=== PATIENT | female | born 1945 | race Caucasian/White ===

== ENCOUNTER → 2017-08-13 | Outpatient (CLI) | payer MEDICARE ==
--- NOTE | 2017-08-13 16:50 | RADIOLOGY REPORT (SQ) ---
EXAM DESCRIPTION: CT CHEST WITHOUT COMPLETED DATE/TIME: 08/13/2017 12:55 pm REASON FOR STUDY: R91.1 SOLITARY PULMONARY NODULE R91.1 SOLITARY PULMONARY NODULE COMPARISON: CT chest 02/15/2014, 06/10/2014, 11/28/2015, 04/19/2016 PET-CT 02/27/2014 TECHNIQUE: CT scan performed of the chest without intravenous contrast. Images reviewed with lung, soft tissue and bone windows. Reconstructed coronal and sagittal MPR images reviewed. All images st ored on PACS. All CT scanners at this facility use dose modulation, iterative reconstruction, and/or weight based d osing when appropriate to reduce radiation dose to as low as reasonably achievable (ALARA). [facility]: Dose Right [facility]: CareDose [facility]: Dose Right [facility]: Teradose 4D [facility]: [email or web address] RADIATION DOSE: CT Rad equipment meets quality standard of care and radiation dose reduction techniq ues were employed. CTDIvol: 12.7 mGy. DLP: 521 mGy-cm. mGy. LIMITATIONS: No technical limitations. FINDINGS: LUNGS AND PLEURA: End-stage appearance of obstructive lung disease with diffuse hyperinfla tion and hyperlucency. The 3 to 4 mm nodule in the posterior left upper lobe seen on 04/19/2016 CT chest no longer identified . No worrisome pulmonary nodules. No pleural effusion. No pneumothorax. No focal infiltrates. HILAR AND MEDIASTINAL STRUCTURES: No identified masses or abnormal nodes. No obvious aneurysm. HEART AND VASCULAR STRUCTURES: No aneurysm. No pericardial effusion. UPPER ABDOMEN: No significant findings. Limited exam. THYROID AND OTHER SOFT TISSUES: No masses. No adenopathy. BONES: No significant finding. HARDWARE: None in the chest. OTHER: No other significant findings. IMPRESSION: OBSTRUCTIVE LUNG DISEASE NO WORRISOME PULMONARY NODULES TECHNICAL DOCUMENTATION: JOB ID: [id number] Quality ID # [id number]: Final reports with documentation of one or more dose reduction techniques (e.g., Au tomated exposure control, adjustment of the mA and/or kV according to patient size, use of iterative reconstruction technique) 2010 [employer]- All Rights Reserved Reading location - IP/workstation name: [email or web address]
== END ==
LOC: RAD 13:33
PROVIDERS: ATTEND Internal Medicine Critical Care Medicine
DX: J44.9 Chronic obstructive pulmonary disease, unspecified (principal); J45.40 Moderate persistent asthma, uncomplicated; F41.9 Anxiety disorder, unspecified; R09.02 Hypoxemia; F17.200 Nicotine dependence, unspecified, uncomplicated; R91.1 Solitary pulmonary nodule; R06.00 Dyspnea, unspecified; Z80.1 Family history of malignant neoplasm of trachea, bronchus and lung
CPT/HCPCS: 71250

== ENCOUNTER 2018-02-12 04:34 | Inpatient (IN) | payer MEDICARE ==
[2018-02-12 06:01] LABS: ABSOLUTE BASOPHILS # (AUTO) 0.1 10^3/uL (0.0-0.2); ABSOLUTE EOSINOPHILS # (AUTO) 0.3 10^3/uL (0.0-0.6); ABSOLUTE LYMPHOCYTES (AUTO) 2.3 10^3/uL (0.5-4.7); ABSOLUTE MONOCYTES (AUTO) 0.8 10^3/uL (0.1-1.4); ABSOLUTE NEUT (AUTO) 6.8 10^3/uL (1.7-8.2); BASOPHILS % (AUTO) 0.7 % (0-2); EOSINOPHILS % (AUTO) 2.9 % (0-6); HEMATOCRIT 36.5 % (36.0-47.0); HEMOGLOBIN 12.2 g/dL (12.0-15.5); LYMPHOCYTES % (AUTO) 22.6 % (13-45); MEAN CORPUSCULAR HEMOGLOBIN 31.2 pg (27.0-33.4); MEAN CORPUSCULAR HGB CONC 33.3 g/dL (32.0-36.0); MEAN CORPUSCULAR VOLUME 94 fl (80-97); MONOCYTES % (AUTO) 7.8 % (3-13); PLATELET COUNT 374 10^3/uL (150-450); RED CELL DISTRIBUTION WIDTH 15.4 % (11.5-14.0); TOTAL CELLS COUNTED % (AUTO) 100 %; WHITE BLOOD COUNT 10.2 10^3/uL (4.0-10.5)
[2018-02-12 06:03] LABS: INTERNATIONAL RATION (INR) 0.93; PROTHROMBIN TIME 12.9 SEC (11.4-15.4)
[2018-02-12 06:12] LABS: ALANINE AMINOTRANSFERASE 16 U/L (9-52); ALBUMIN 3.9 g/dL (3.5-5.0); ALKALINE PHOSPHATASE 62 U/L (38-126); ANION GAP 15 (5-19); ASPARTATE AMINO TRANSFERASE 20 U/L (14-36); BILIRUBIN,DIRECT 0.4 mg/dL (0.0-0.4); BILIRUBIN,TOTAL 0.4 mg/dL (0.2-1.3); BLOOD UREA NITROGEN 15 mg/dL (7-20); CALCIUM 9.1 mg/dL (8.4-10.2); CARBON DIOXIDE 32 mmol/L (22-30); CHLORIDE 96 mmol/L (98-107); GLUCOSE 130 mg/dL (75-110); POTASSIUM 4.2 mmol/L (3.6-5.0); SODIUM 143.2 mmol/L (137-145); TOTAL PROTEIN 7.8 g/dL (6.3-8.2)
--- NOTE | 2018-02-12 06:23 | RADIOLOGY REPORT (SQ) ---
PROCEDURE: XR CHEST 1 VIEW HISTORY: weakness COMPARISON: 03/16/2015 TECHNIQUE: Single projection of the chest was done. The study was done on 02/12/2018 at 6:09 AM, local time FINDINGS: There are underlying changes of COPD. There is presence of a small ill-defined opacity in the right lower lung zone which may be due to infectious or neoplastic etiology and can be further assessed with a dedicated CT of the chest . There are no pneumothoraces or pleural effusions. The pulmonary vascularity is normal. The cardiomediastinal silhouette is unremarkable for patient's age and sex. IMPRESSION: There are underlying changes of COPD. There is presence of a small ill-defined opacity in the right lower lung zone which may be due to infectious or neoplastic etiology and can be further assessed with a dedicated CT of the chest .
[2018-02-12 06:34] LABS: APPEARANCE,URINE TURBID; BILIRUBIN,URINE NEGATIVE (NEGATIVE); GLUCOSE, URINE NEGATIVE (NEGATIVE); KETONES,URINE TRACE mg/dL (NEGATIVE); LEUKOCYTE ESTERASE,URINE SMALL (NEGATIVE); NITRITE,URINE NEGATIVE (NEGATIVE); PROTEIN,URINE 100 mg/dL (NEGATIVE); URINE SPECIFIC GRAVITY 1.024; UROBILINOGEN,URINE NEGATIVE mg/dL (<2.0)
--- NOTE | 2018-02-12 06:41 | ER Document Report ---
ED General - General Chief Complaint: General Weakness Stated Complaint: TREMORS/WEAKNESS Time Seen by Provider: 02/12/18 06:41 TRAVEL OUTSIDE OF THE [place] IN LAST 30 DAYS: No - HPI Patient complains to provider of: Generalized weakness, SOB Notes: Ill-appearing female presents with increasing weakness and fatigue for 1 month. Patient suffers from COPD continues to smoke cigarettes. Patient has had increasing work of breathing shortness of breath and sputum production generalized malaise. Patient denies fever chills nausea vomiting dysuria or diarrhea. Patient states she is unable to ambulate now due to process profound weakness. Has has increasing oxygen demand Patient now requiring 3 L nasal cannula to maintain oxygen saturations patient normally uses 2 L. - Related Data Allergies/Adverse Reactions: Sulfa (Sulfonamide Antibiotics) Allergy (Severe, Verified 03/16/15 18:56) unsure amoxicillin Allergy (Verified 02/12/18 07:20) codeine [Codeine] Allergy (Verified 03/16/15 18:56) Past Medical History - Social History Smoking Status: Current Some Day Smoker Chew tobacco use (# tins/day): No Frequency of alcohol use: None Drug Abuse: None Family History: Reviewed & Not Pertinent Patient has suicidal ideation: No Patient has homicidal ideation: No - Past Medical History Cardiac Medical History: Denies: Hx Coronary Artery Disease, Hx Heart Attack, Hx Hypertension Pulmonary Medical History: Reports: Hx Asthma, Hx COPD Denies: Hx Bronchitis, Hx Pneumonia, Hx Tuberculosis Neurological Medical History: Denies: Hx Cerebrovascular Accident, Hx Seizures Renal/ Medical History: Denies: Hx Peritoneal Dialysis Musculoskeletal Medical History: Denies Hx Arthritis Past Surgical History: Reports: Hx Hysterectomy. Denies: Hx Pacemaker - Immunizations Hx Diphtheria, Pertussis, Tetanus Vaccination: No Review of Systems - Review of Systems Notes: REVIEW OF SYSTEMS: CONSTITUTIONAL: -fevers, -chills EENT: -eye pain, -difficulty swallowing, -nasal congestion CARDIOVASCULAR: -chest pain, -syncope. RESPIRATORY: -cough, +SOB GASTROINTESTINAL: -abdominal pain, -nausea, -vomiting, -diarrhea GENITOURINARY: -dysuria, -hematuria MUSCULOSKELETAL: -back pain, -neck pain SKIN: -rash or skin lesions. HEMATOLOGIC: -easy bruising or bleeding. LYMPHATIC: -swollen, enlarged glands. NEUROLOGICAL: -altered mental status or loss of consciousness, -headache, - neurologic symptoms PSYCHIATRIC: -anxiety, -depression. ALL OTHER SYSTEMS REVIEWED AND NEGATIVE. Physical Exam - Vital signs Vitals: Temp Pulse Resp BP Pulse Ox 97.5 F 95 20 130/51 H 100 02/12/18 04:45 02/12/18 04:45 02/12/18 04:45 02/12/18 04:45 02/12/18 04:45 - Notes Notes: PHYSICAL EXAMINATION: GENERAL: ill appearing female, cachectic. HEAD: Atraumatic, normocephalic. EYES: Pupils equal round and reactive to light, extraocular movements intact, sclera anicteric, conjunctiva are normal. ENT: nares patent, oropharynx clear without exudates. Moist mucous membranes. NECK: Normal range of motion, supple without lymphadenopathy LUNGS: Respiratory distress, biphasic wheezing, rhonchi HEART: Tachycardia, no murmurs or gallops ABDOMEN: Soft, nontender, normoactive bowel sounds. No guarding, no rebound. No masses appreciated. EXTREMITIES: Normal range of motion, no pitting or edema. No cyanosis. NEUROLOGICAL: Cranial nerves grossly intact. Normal speech, normal gait. Normal sensory and motor exams. PSYCH: Normal mood, normal affect. SKIN: Warm, Dry, normal turgor, no rashes or lesions noted. Course - Re-evaluation Re-evalutation: 02/12/18 07:56 Critically ill-appearing female presents with new oxygen demand, respiratory distress, dysuria. Patient found to have infiltrate on her chest x-ray, no leukocytosis. Patient given multiple breathing treatments respiratory status mildly improved with steroids. Patient requiring dual antibiotic therapy for pneumonia and possible urinary tract sources. Urine cultures pending at this time blood cultures pending at this time. Patient given adequate fluid resuscitation in the emergency department. Will be admitted to the hospital for close monitoring of her sepsis. - Vital Signs Vital signs: Temp Pulse Resp BP Pulse Ox 97.5 F 95 24 H 150/82 H 100 02/12/18 04:45 02/12/18 04:45 02/12/18 06:01 02/12/18 06:01 02/12/18 06:01 - Laboratory Result Diagrams: 02/12/18 04:00 02/12/18 04:00 Laboratory results interpreted by me: 02/12/18 02/12/18 02/12/18 04:00 04:00 05:55 RDW 15.4 H Chloride 96 L Carbon Dioxide 32 H Glucose 130 H Urine Protein 100 H Urine Ketones TRACE H Urine Blood SMALL H Ur Leukocyte Esterase SMALL H Urine Ascorbic Acid 20 H - EKG Interpretation by Me Additional EKG results interpreted by me: 02/12/18 06:48 Sinus tachycardia, no ST elevations or depressions no pathologic T-wave inversions. 02/12/18 06:48 Critical Care Note - Critical Care Note Total time excluding time spent on procedures (mins): 38 Discharge - Discharge Clinical Impression: COPD exacerbation Acute and chronic respiratory failure Qualifiers: Respiratory failure complication: hypoxia and hypercapnia Qualified Code(s): J96.21 - Acute and chronic respiratory failure with hypoxia; J96.22 - Acute and chronic respiratory failure with hypercapnia; J96.22 - Acute and chronic respiratory failure with hypercapnia; J96.22 - Acute and chronic respiratory failure with hypercapnia UTI (urinary tract infection) Qualifiers: Urinary tract infection type: acute cystitis Hematuria presence: without hematuria Qualified Code(s): N30.00 - Acute cystitis without hematuria Condition: Stable Disposition: ADMITTED INPATIENT Admitting Provider: Hospitalist - Dr. Claire Unit Admitted: Medical Floor Referrals: ASHLEY GONZALEZ MD [Primary Care Provider] - Follow up as needed
[2018-02-12] MEDS ORDERED: IPRATROPIUM/ALBUTEROL 0.5-2.5 MG/3 ML AMPUL NEB ONE ×3 (06:43)
[2018-02-12] MEDS ORDERED: NORMAL SALINE 1000 ML 1,000 ML IV ONE (06:44)
[2018-02-12] MEDS ORDERED: METHYLPREDNISOLONE INJ 125 MG/2 ML SDV IV ONE (06:44)
[2018-02-12 06:45] LABS: COLOR,URINE GREEN
[2018-02-12] MEDS ORDERED: AZITHROMYCIN INJ 500 MG VIAL IV ONE (06:45)
[2018-02-12] MEDS ORDERED: CEFTRIAXONE 1 GM/D5W RTU 1 GM/50 ML RTUPB IV ONE (07:00)
--- NOTE | 2018-02-12 07:56 | EKG REPORT ---
SEVERITY:- ABNORMAL ECG - SINUS RHYTHM VENTRICULAR PREMATURE COMPLEXES NONSPECIFIC INTRAVENTRICULAR CONDUCTION DELAY : Confirmed by: Hunter Kong MD 12-Feb-2018 07:56:13
[2018-02-12] MEDS ORDERED: LORAZEPAM INJ 2 MG/1 ML VIAL IV ONE (07:58)
[2018-02-12] MEDS ORDERED: ALBUTEROL SULFATE 0.083% NEB 2.5 MG/3 ML AMPUL NEB PRN (08:09)
[2018-02-12] MEDS ORDERED: CEFTRIAXONE INJ 1000 MG VIAL ONE (08:34)
[2018-02-12] MEDS ORDERED: IPRATROPIUM/ALBUTEROL 0.5-2.5 MG/3 ML AMPUL NEB SCH (10:00)
[2018-02-12] MEDS: IPRATROPIUM/ALBUTEROL 0.5-2.5 MG/3 ML AMPUL NEB SCH ×3 (11:42→19:50)
[2018-02-12] MEDS: ENOXAPARIN SODIUM INJ 40 MG/0.4 ML DISP.SYRIN SUBCUT SCH (12:03)
[2018-02-12 12:28] LABS: ARTERIAL BLOOD BASE EXCESS 3.3 mmol/L; ARTERIAL BLOOD FIO2 4L; ARTERIAL BLOOD H2CO3 2.18 mmol/L (1.05-1.35); ARTERIAL BLOOD HCO3 32.1 mmol/L (20-24); ARTERIAL BLOOD O2 SATURATION 93.5 % (94-98); ARTERIAL BLOOD PH 7.26 (7.35-7.45); ARTERIAL BLOOD PO2 79.1 mmHg (80-100); ARTERIAL BLOOD TOTAL CO2 34.3 mmol/L (21-25)
[2018-02-12 12:29] LABS: ARTERIAL BLOOD PCO2 72.4 mmHg (35-45)
[2018-02-12] MEDS ORDERED: ALBUTEROL SULFATE HFA (90 MCG/PUFF) 8 GM MDI (1 MDI/ER DISP) IH SCH (12:45)
[2018-02-12] MEDS ORDERED: (PENDING PHARMACY ID) (Tiotropium Bromide [Spiriva Respimat] 2 PUFF) IH SCH ×2 (12:45→13:15)
--- NOTE | 2018-02-12 12:51 | PDOC H&P ---
History of Present Illness Admission Date/PCP: 02/12/18 08:29 ASHLEY GONZALEZ MD Patient complains of: Weakness, shortness of breath History of Present Illness: SOM MCALLISTER is a 72 year old female who has history of chronic respiratory failure on home oxygen 24 hours a day. She has severe COPD. Patient apparently has been complaining of generalized weakness and swollen feet for about 3 month along with his cough and shortness of breath. She actually fell asleep one time and had her nose on the table and has significant erythema and large scab on her nasal bridge. She is severely short of breath and does not seem to finish a complete sentence during my evaluation. She is very poor historian as well as her who was present during the examination. Past Medical History Cardiac Medical History: Denies: Coronary Artery Disease, Myocardial Infarction, Hypertension Pulmonary Medical History: Reports: Asthma, Chronic Obstructive Pulmonary Disease (COPD) Denies: Bronchitis, Pneumonia, Tuberculosis Neurological Medical History: Denies: Seizures Musculoskeltal Medical History: Denies: Arthritis Hematology: Denies: Anemia Past Surgical History Past Surgical History: Reports: Hysterectomy Denies: Pacemaker Social History Smoking Status: Current Some Day Smoker Hx Recreational Drug Use: No Hx Prescription Drug Abuse: No Family History Family History: Reviewed & Not Pertinent Parental Family History Reviewed: Yes Children Family History Reviewed: Yes Sibling(s) Family History Reviewed.: Yes Medication/Allergy Home Medications: Albuterol Sulfate [Ventolin HFA MDI 18 GM] 2 puff IH Q4H 02/12/18 Alprazolam [Xanax 0.5 mg Tablet] 0.5 mg PO TID 02/12/18 Aspirin [Aspirin 81 mg Chewable Tablet] 81 mg PO DAILY 02/12/18 Atorvastatin Calcium [Lipitor 40 mg Tablet] 40 mg PO QHS 02/12/18 Famotidine [Pepcid 20 mg Tablet] 20 mg PO BID 02/12/18 Fluticasone/Salmeterol [Advair 500-50 Diskus 28 Dose] 1 inh IH Q12H 02/12/18 Metoprolol Tartrate [Lopressor 25 mg Tablet] 25 mg PO Q12 02/12/18 Tiotropium [place] [Spiriva Respimat] 2 puff IH DAILY 02/12/18 Allergies/Adverse Reactions: Sulfa (Sulfonamide Antibiotics) Allergy (Severe, Verified 03/16/15 18:56) unsure amoxicillin Allergy (Verified 02/12/18 07:20) codeine [Codeine] Allergy (Verified 03/16/15 18:56) Physical Exam Vital Signs: Temp Pulse Resp BP Pulse Ox 97.4 F 113 H 28 H 161/86 H 95 02/12/18 11:05 02/12/18 11:42 02/12/18 11:42 02/12/18 11:05 02/12/18 11:05 Intake & Output 02/11/18 02/12/18 02/13/18 06:59 06:59 06:59 Intake Total 1050 Balance 1050 Weight 133 lb 2.547 oz General appearance: PRESENT: severe distress, thin Head exam: PRESENT: normocephalic, other - Injury to her nasal bridge was scabbed Eye exam: PRESENT: conjunctiva pink, EOMI, PERRLA. ABSENT: scleral icterus Ear exam: PRESENT: normal external ear exam Mouth exam: PRESENT: moist, tongue midline Neck exam: ABSENT: carotid bruit, JVD, lymphadenopathy, thyromegaly Respiratory exam: PRESENT: clear to auscultation tete. ABSENT: rales, rhonchi, wheezes Cardiovascular exam: PRESENT: RRR. ABSENT: diastolic murmur, rubs, systolic murmur Pulses: PRESENT: normal dorsalis pedis pul Vascular exam: PRESENT: normal capillary refill GI/Abdominal exam: PRESENT: normal bowel sounds, soft. ABSENT: distended, guarding, mass, organolmegaly, rebound, tenderness Rectal exam: PRESENT: deferred Extremities exam: PRESENT: full ROM. ABSENT: calf tenderness, clubbing, pedal edema Neurological exam: PRESENT: alert, awake, oriented to person, oriented to place , oriented to time, oriented to situation, CN II-XII grossly intact. ABSENT: motor sensory deficit Psychiatric exam: PRESENT: appropriate affect, normal mood. ABSENT: homicidal ideation, suicidal ideation Skin exam: PRESENT: erythema Results Laboratory Results: 02/12/18 11:15 Carbonic Acid 2.18 H HCO3/H2CO3 Ratio 14:1 ABG pH 7.26 L ABG pCO2 72.4 H* ABG pO2 79.1 L ABG HCO3 32.1 H ABG O2 Saturation 93.5 L ABG Base Excess 3.3 FiO2 4L Impressions: Chest X-Ray 02/12/18 05:36 IMPRESSION: There are underlying changes of COPD. There is presence of a small ill-defined opacity in the right lower lung zone which may be due to infectious or neoplastic etiology and can be further assessed with a dedicated CT of the chest . Assessment & Plan - Diagnosis (1) Lower extremity cellulitis Is this a current diagnosis for this admission?: Yes Plan: We will start IV ceftriaxone. monitor blood culture (2) Acute and chronic respiratory failure Qualifiers: Respiratory failure complication: hypoxia and hypercapnia Qualified Code(s) : J96.21 - Acute and chronic respiratory failure with hypoxia; J96.22 - Acute and chronic respiratory failure with hypercapnia; J96.22 - Acute and chronic respiratory failure with hypercapnia; J96.22 - Acute and chronic respiratory failure with hypercapnia Is this a current diagnosis for this admission?: Yes Plan: PCO2 is 72. Patient will need BiPAP. Continue oxygen as needed. Repeat ABG later today. (3) COPD exacerbation Is this a current diagnosis for this admission?: Yes Plan: Start prednisone 40 mg daily. DuoNeb every 4 hours scheduled. Albuterol every 2 hours as needed. Supportive care with BiPAP and oxygen as needed. (4) UTI (urinary tract infection) Qualifiers: Urinary tract infection type: acute cystitis Hematuria presence: without hematuria Qualified Code(s): N30.00 - Acute cystitis without hematuria Is this a current diagnosis for this admission?: Yes Plan: She will be on ceftriaxone. Follow urine culture. (5) Esophageal stenosis Is this a current diagnosis for this admission?: No Plan: She says she gets "stretching surgery" every now and then. She denied dysphagia. (6) Generalized anxiety disorder Is this a current diagnosis for this admission?: Yes Plan: Continue Xanax as needed (7) Lesion of right lung Is this a current diagnosis for this admission?: Yes Plan: Check CT of the chest. She will be on azithromycin and ceftriaxone. (8) Generalized weakness Is this a current diagnosis for this admission?: Yes Plan: Consult physical therapy - Inpatient Certification I certify that my determination is in accordance with my understanding of Medicare's requirements for reasonable and necessary INPATIENT services [42 CFR 412.3e].: Yes
[2018-02-12] MEDS: ASPIRIN 81 MG TABLET, CHEWABLE PO SCH (13:16)
[2018-02-12] MEDS: METOPROLOL TARTRATE 25 MG TABLET PO SCH ×2 (13:16→21:25)
[2018-02-12] MEDS: FAMOTIDINE 20 MG TABLET PO SCH ×2 (13:16→18:21)
[2018-02-12] MEDS: ALPRAZOLAM 0.5 MG TABLET PO SCH ×2 (13:16→21:25)
[2018-02-12] MEDS ORDERED: ALPRAZOLAM 0.5 MG TABLET PO SCH ×2 (14:00)
[2018-02-12] MEDS ORDERED: PREDNISONE 20 MG TABLET PO ONE (14:00)
[2018-02-12 15:02] LABS: ARTERIAL BLOOD BASE EXCESS 3.6 mmol/L; ARTERIAL BLOOD H2CO3 2.22 mmol/L (1.05-1.35); ARTERIAL BLOOD HCO3 32.4 mmol/L (20-24); ARTERIAL BLOOD O2 SATURATION 95.8 % (94-98); ARTERIAL BLOOD PH 7.26 (7.35-7.45); ARTERIAL BLOOD PO2 93.7 mmHg (80-100); ARTERIAL BLOOD TOTAL CO2 34.7 mmol/L (21-25)
[2018-02-12 15:05] LABS: ARTERIAL BLOOD FIO2 35%
[2018-02-12 15:06] LABS: ARTERIAL BLOOD PCO2 73.9 mmHg (35-45)
[2018-02-12] MEDS: ALBUTEROL SULFATE HFA (90 MCG/PUFF) 200 PUFF/8.5 GM MDI IH SCH ×3 (16:00→21:24)
[2018-02-12] MEDS: TIOTROPIUM BROMIDE DPI 5 CAP/KIT (18 MCG/CAP) IH SCH (16:01)
[2018-02-12] MEDS: FLUTICASONE/SALMETEROL DISKUS 500-50 MCG/DOSE IH SCH (18:23)
--- NOTE | 2018-02-12 18:36 | RADIOLOGY REPORT (SQ) ---
EXAM DESCRIPTION: CTA CHEST COMPLETED DATE/TIME: 02/12/2018 6:04 pm REASON FOR STUDY: resp failure COMPARISON: 08/13/2017 TECHNIQUE: CT scan of the chest performed using helical scanning technique with dynamic intravenous contrast injection. Images reviewed with lung, soft tissue and bone windows. Reconstructed coronal and sagittal MPR images reviewed. Additional 3 dimensional post-processing performed to develop Maximal Intensity Projection images (NM P). All images stored on PACS. All CT scanners at this facility use dose modulation, iterative reconstruction, and/or weight based d osing when appropriate to reduce radiation dose to as low as reasonably achievable (ALARA). [facility]: Dose Right [facility]: CareDose [facility]: Dose Right [facility]: Teradose 4D [facility]: [employer] CONTRAST TYPE AND DOSE: contrast/concentration: Isovue 350.00 mg/ml; Total Contrast Delivered: 70.0 ml; Total Saline Delivered: 70.0 ml Contrast bolus adequate for pulmonary arteries and aorta. RENAL FUNCTION: BUN 15 creatinine 0.5 RADIATION DOSE: CT Rad equipment meets quality standard of care and radiation dose reduction techniq ues were employed. CTDIvol: 13.2 - 15.0 mGy. DLP: 641 mGy-cm. . LIMITATIONS: None. FINDINGS: LUNGS AND PLEURA: Extensive centrilobular emphysematous changes. No masses. No acute inf iltrates. No pleural effusion. AORTA AND GREAT VESSELS: No aneurysm. No dissection. HEART: No pericardial effusion. No significant coronary artery calcifications. PULMONARY ARTERIES: No emboli visualized in the main pulmonary arteries or the segmental branches. HILAR AND MEDIASTINAL STRUCTURES: No identified masses or abnormal nodes. HARDWARE: None in the chest. UPPER ABDOMEN: Cholelithiasis with a large gallstone. THYROID AND OTHER SOFT TISSUES: No masses. No adenopathy. BONES: No acute or significant finding. 3D MIPS: Confirm above findings. OTHER: No other significant finding. IMPRESSION: 1. There is no evidence of pulmonary emboli. 2. Extensive pulmonary emphysema. 3. Cholelithiasis. COMMENT: Quality ID # [id number]: Final reports with documentation of one or more dose reduction techniques (e.g., Automated exposure control, adjustment of the mA and/or kV according to patient size, use of iterative reconstruction technique) TECHNICAL DOCUMENTATION: JOB ID: [id number]- All Rights Reserved Reading location - IP/workstation name: [email or web address]
[2018-02-12 19:17] LABS: ARTERIAL BLOOD BASE EXCESS 4.6 mmol/L; ARTERIAL BLOOD H2CO3 1.72 mmol/L (1.05-1.35); ARTERIAL BLOOD HCO3 31.4 mmol/L (20-24); ARTERIAL BLOOD O2 SATURATION 94.8 % (94-98); ARTERIAL BLOOD PCO2 57.3 mmHg (35-45); ARTERIAL BLOOD PH 7.36 (7.35-7.45); ARTERIAL BLOOD PO2 78.2 mmHg (80-100); ARTERIAL BLOOD TOTAL CO2 33.1 mmol/L (21-25)
[2018-02-12 19:18] LABS: ARTERIAL BLOOD FIO2 30%
[2018-02-12] MEDS: METHYLPREDNISOLONE INJ 125 MG/2 ML SDV IV SCH (21:25)
[2018-02-12] MEDS: FAMOTIDINE INJ/PF 20 MG/2 ML SDV IV SCH (21:25)
[2018-02-12] MEDS: ATORVASTATIN CALCIUM 40 MG TABLET PO SCH (21:25)
[2018-02-13] MEDS: IPRATROPIUM/ALBUTEROL 0.5-2.5 MG/3 ML AMPUL NEB SCH ×6 (00:01→19:49)
[2018-02-13 05:28] LABS: HEMATOCRIT 33.7 % (36.0-47.0); HEMOGLOBIN 11.2 g/dL (12.0-15.5); MEAN CORPUSCULAR HGB CONC 33.3 g/dL (32.0-36.0); MEAN CORPUSCULAR VOLUME 93 fl (80-97); PLATELET COUNT 259 10^3/uL (150-450); RED BLOOD COUNT 3.62 10^6/uL (3.72-5.28); RED CELL DISTRIBUTION WIDTH 15.5 % (11.5-14.0); WHITE BLOOD COUNT 5.9 10^3/uL (4.0-10.5)
[2018-02-13 05:58] LABS: ANION GAP 13 (5-19); BLOOD UREA NITROGEN 14 mg/dL (7-20); CALCIUM 9.2 mg/dL (8.4-10.2); CARBON DIOXIDE 29 mmol/L (22-30); CHLORIDE 100 mmol/L (98-107); GLUCOSE 157 mg/dL (75-110); POTASSIUM 4.5 mmol/L (3.6-5.0); SODIUM 141.8 mmol/L (137-145)
[2018-02-13] MEDS: METHYLPREDNISOLONE INJ 125 MG/2 ML SDV IV SCH ×3 (06:45→21:10)
[2018-02-13] MEDS: ALPRAZOLAM 0.5 MG TABLET PO SCH ×3 (06:45→21:10)
[2018-02-13] MEDS: ALBUTEROL SULFATE HFA (90 MCG/PUFF) 200 PUFF/8.5 GM MDI IH SCH ×6 (06:45→21:13)
[2018-02-13] MEDS: FLUTICASONE/SALMETEROL DISKUS 500-50 MCG/DOSE IH SCH ×2 (06:46→17:26)
[2018-02-13] MEDS: METOPROLOL TARTRATE 25 MG TABLET PO SCH ×2 (09:12→21:08)
[2018-02-13] MEDS: AZITHROMYCIN 250 MG TABLET PO SCH (09:13)
[2018-02-13] MEDS: ASPIRIN 81 MG TABLET, CHEWABLE PO SCH (09:13)
[2018-02-13] MEDS: FAMOTIDINE INJ/PF 20 MG/2 ML SDV IV SCH ×2 (09:13→21:11)
[2018-02-13] MEDS: CEFTRIAXONE SODIUM 1,000 MG in NORMAL SALINE 50 ML IV SCH (09:14)
[2018-02-13] MEDS: ENOXAPARIN SODIUM INJ 40 MG/0.4 ML DISP.SYRIN SUBCUT SCH (09:14)
[2018-02-13] MEDS: TIOTROPIUM BROMIDE DPI 5 CAP/KIT (18 MCG/CAP) IH SCH (09:15)
--- NOTE | 2018-02-13 09:44 | PDOC PROGRESS REPORT ---
Subjective Progress Note for:: 02/13/18 Subjective:: Patient is still on BiPAP She can even take it off for food because she desaturates quickly CT angiogram was negative for PE or lung mass but there was severe emphysema Cellulitis is slightly better today I discussed end-of-life care with this patient and she is agreeable to palliative care consult Reason For Visit: COPD EXACERBATION Physical Exam Vital Signs: Temp Pulse Resp BP Pulse Ox 98.3 F 88 19 103/87 H 97 02/13/18 08:00 02/13/18 08:23 02/13/18 08:23 02/13/18 08:00 02/13/18 08:23 Pulse Oximeter Continuous Start: 02/12/18 13: 38 Freq: RTQ4 Status: Complete Document 02/12/18 13:00 [facility] (Rec: 02/12/18 13:40 [facility] [id number]) Pulse Oximetry Assessment Oxygen Saturation (92-100) 97 Oxygen Delivery Method Bi-pap Fraction of Inspired Oxygen (FIO2) 45 Equipment Usage Initial Set Up Continuous Pulse Oximeter 24 Hour Charge Charge Now Continuous SpO2 Machine # [id number] Pulse Oximeter Continuous Start: 02/12/18 14: 27 Freq: RTQ4 Status: Active Document 02/13/18 08:23 [facility] (Rec: 02/13/18 08:42 [facility] [id number]) Pulse Oximetry Assessment Oxygen Saturation (92-100) 97 Oxygen Delivery Method Bi-pap Fraction of Inspired Oxygen (FIO2) 30 Equipment Usage Equipment in Use Continuous SpO2 Machine # 2 Intake & Output 02/12/18 02/13/18 02/14/18 06:59 06:59 06:59 Intake Total 1868 Balance 1868 Weight 134 lb 14.766 oz General appearance: PRESENT: severe distress, thin, other - On BiPAP Head exam: PRESENT: normocephalic, other - Injury to the nasal bridge Eye exam: PRESENT: conjunctiva pink, EOMI, PERRLA. ABSENT: scleral icterus Ear exam: PRESENT: normal external ear exam Mouth exam: PRESENT: neck supple Neck exam: ABSENT: meningismus, tenderness, thyromegaly Respiratory exam: PRESENT: accessory muscle use, other - Very poor air entry Cardiovascular exam: PRESENT: tachycardia. ABSENT: systolic murmur Pulses: PRESENT: normal radial pulses GI/Abdominal exam: PRESENT: normal bowel sounds, soft. ABSENT: distended, guarding, mass, organolmegaly, rebound, tenderness Rectal exam: PRESENT: deferred Extremities exam: ABSENT: clubbing, pedal edema Neurological exam: PRESENT: alert, altered, awake, oriented to person, oriented to place, oriented to time, oriented to situation Psychiatric exam: PRESENT: anxious. ABSENT: homicidal ideation, suicidal ideation Skin exam: PRESENT: erythema Results Laboratory Results: 02/13/18 04:57 02/13/18 04:57 02/12/18 02/12/18 02/12/18 11:15 14:35 19:00 WBC RBC Hgb Hct MCV MCH MCHC RDW Plt Count Carbonic Acid 2.18 H 2.22 H 1.72 H HCO3/H2CO3 Ratio 14:1 14:1 18:1 ABG pH 7.26 L 7.26 L 7.36 ABG pCO2 72.4 H* 73.9 H* 57.3 H ABG pO2 79.1 L 93.7 78.2 L ABG HCO3 32.1 H 32.4 H 31.4 H ABG O2 Saturation 93.5 L 95.8 94.8 ABG Base Excess 3.3 3.6 4.6 FiO2 4L 35% 30% Sodium Potassium Chloride Carbon Dioxide Anion Gap BUN Creatinine Est GFR ( Amer) Est GFR (Non-Af Amer) Glucose Calcium 02/13/18 02/13/18 04:57 04:57 WBC 5.9 RBC 3.62 L Hgb 11.2 L Hct 33.7 L MCV 93 MCH 31.0 MCHC 33.3 RDW 15.5 H Plt Count 259 Carbonic Acid HCO3/H2CO3 Ratio ABG pH ABG pCO2 ABG pO2 ABG HCO3 ABG O2 Saturation ABG Base Excess FiO2 Sodium 141.8 Potassium 4.5 Chloride 100 Carbon Dioxide 29 Anion Gap 13 BUN 14 Creatinine 0.49 L Est GFR ( Amer) > 60 Est GFR (Non-Af Amer) > 60 Glucose 157 H Calcium 9.2 Impressions: Chest/Abdomen CTA 02/12/18 00:00 IMPRESSION: 1. There is no evidence of pulmonary emboli. 2. Extensive pulmonary emphysema. 3. Cholelithiasis. Chest X-Ray 02/12/18 05:36 IMPRESSION: There are underlying changes of COPD. There is presence of a small ill-defined opacity in the right lower lung zone which may be due to infectious or neoplastic etiology and can be further assessed with a dedicated CT of the chest . Assessment & Plan - Diagnosis (1) Lower extremity cellulitis Is this a current diagnosis for this admission?: Yes Plan: Continue IV ceftriaxone. monitor blood culture (2) Acute and chronic respiratory failure Qualifiers: Respiratory failure complication: hypoxia and hypercapnia Qualified Code(s) : J96.21 - Acute and chronic respiratory failure with hypoxia; J96.22 - Acute and chronic respiratory failure with hypercapnia; J96.22 - Acute and chronic respiratory failure with hypercapnia; J96.22 - Acute and chronic respiratory failure with hypercapnia Is this a current diagnosis for this admission?: Yes Plan: Continue BiPAP. Continue oxygen as needed. Palliative care consult (3) COPD exacerbation Is this a current diagnosis for this admission?: Yes Plan: Continue IV Solu-Medrol. DuoNeb every 4 hours scheduled. Albuterol every 2 hours as needed. Supportive care with BiPAP and oxygen as needed. (4) UTI (urinary tract infection) Qualifiers: Urinary tract infection type: acute cystitis Hematuria presence: without hematuria Qualified Code(s): N30.00 - Acute cystitis without hematuria Is this a current diagnosis for this admission?: Yes Plan: Continue ceftriaxone. Follow urine culture. (5) Esophageal stenosis Is this a current diagnosis for this admission?: No Plan: she gets "stretching surgery" every now and then. She denied dysphagia. (6) Generalized anxiety disorder Is this a current diagnosis for this admission?: Yes Plan: Continue Xanax as needed (7) Lesion of right lung Is this a current diagnosis for this admission?: Yes Plan: CT scan did not show any lesions (8) Generalized weakness Is this a current diagnosis for this admission?: Yes Plan: Consult physical therapy
[2018-02-13] MEDS ORDERED: CEFTRIAXONE 1 GM/D5W RTU 1 GM/50 ML RTUPB IV SCH (10:00)
[2018-02-13] MEDS ORDERED: CEFTRIAXONE SODIUM 1,000 MG in DEXTROSE 5%-WATER 50 ML IV SCH (10:00)
[2018-02-13] MEDS ORDERED: PREDNISONE 20 MG TABLET PO SCH (10:00)
--- NOTE | 2018-02-13 14:22 | CONSULTATION REPORT E ---
Consultation Report NAME: SOM MCALLISTER : 1945 AGE: 72Y DATE: 02/12/2018 405 A TO: ASHLEY GONZALEZ M.D. FROM: ARY JETT M.D. Requesting Physician The patient is a 72-year-old female who came in with severe shortness of breath, chest tightness. Admitted for acute on chronic respiratory failure. Patient claimed that her feet have been swelling for the last 3 months. She complained about increased cough and shortness of breath. Denies any fever or chills. Currently on BiPAP machine. Came in with a pH of 7.2. Repeat ABG showed pH of 7.2 at 2:00 p.m. Patient went for a CT scan more than 2 hours ago on a BiPAP with a CAT scan showing no pulmonary emboli or pneumonia of pneumothorax bilaterally. PAST MEDICAL HISTORY: No history of heart attack or hypertension. Patient has history of asthma, COPD and there is a history of anemia. SURGICAL HISTORY: Hysterectomy. SOCIAL HISTORY: Patient smokes about a pack a day for several years. Denies any illicit drug use or alcohol abuse. FAMILY HISTORY: Reviewed, nothing pertinent. MEDICATIONS AT HOME: Includes: 1. Albuterol inhaler. 2. Xanax. 3. Aspirin. 4. Lipitor. 5. Pepcid. 6. Advair 500. 7. Metoprolol. 8. Spiriva. ALLERGIES: Include SULFA, AMPICILLIN AND CODEINE. PHYSICAL EXAMINATION: GENERAL: The patient appeared to be awake, coherent, oriented x3. Afebrile. Not in severe respiratory distress. Currently using BiPAP therapy. Sed of 12/5 and rate of 12. Appeared to be doing well on BiPAP. ABGs being processed. EYES: No conjunctival pallor. EAR, NOSE, MOUTH, THROAT: No ear drainage, no nasal discharge. CHEST AND LUNGS: No wheezing, no rhonchi. No coarse crackles. CARDIOVASCULAR: S1, S2 distinct. No murmur. Regular rhythm. ABDOMEN: Flabby, positive bowel sounds. Soft, nondistended, nontender. EXTREMITIES: No joint swelling. No cellulitis. LABORATORY: CBC done today showed white count of 10.2, hemoglobin 12.2, hematocrit 36.5, platelet count 374. ABG at 7:00 p.m. tonight on BiPAP of 15/5 showed pH of 7.36, pCO2 of 57.3, pO2 of 78.2. The saturation is 94 % improved from 2:35 p.m. Chemistry done today showed sodium 153, potassium 4.2, chloride 96, CO2 of 32, BUN 15, creatinine 0.53, glucose 133, calcium is 9.1 and lactic acid 1. Again, chest CT scan today shows severe emphysema bilaterally and no pneumonia or pulmonary emboli. There were no pleural effusions. ASSESSMENT: 1. Acute on chronic respiratory failure requiring BiPAP therapy. Appeared to be doing well on BiPAP therapy at 05/20. Saturation was 96% on 30% FiO2. 2. Chronic obstructive pulmonary disease exacerbation, acute on chronic chronic obstructive pulmonary disease very severe. PLAN/RECOMMENDATION: 1. Will continue Advair 500 duskhaler one puff BID daily and continue Spiriva inhaler one capsule daily. 2. Will continue nebulizer treatment. 3. Will be on Atrovent every 4 hours. 4. Will change the prednisone to Solu-Medrol 135 mg IV q.8 hours. 5. Will discontinue the Pepcid tablet and change to Pepcid . 6. Continue IV antibiotic. 7. Continue GI and DVT prophylaxis. DICTATING PHYSICIAN: ASHLEY GONZALEZ MD,CHARISSE,MPH [id number] PHY#: [id number] ID: [id number] JOB#: [id number] ACCT: [id number] cc:ASHLEY GONZALEZ M.D. > MTDD
[2018-02-13] MEDS: ATORVASTATIN CALCIUM 40 MG TABLET PO SCH (21:07)
--- NOTE | 2018-02-13 22:16 | PROGRESS NOTE E ---
Progress Note NAME: SOM MCALLISTER : 1945 AGE: 72Y DATE: 02/13/2018 ROOM: 405 SUBJECTIVE: The patient is a 72-year-old female who came in acute on chronic respiratory failure requiring noninvasive mechanical ventilation. Currently feeling well. Denies any fever, chills, increasing cough, or purulent sputum production. OBJECTIVE: GENERAL: The patient is awake, alert, coherent, oriented. VITAL SIGNS: Afebrile, in mild to moderate respiratory distress on BiPAP therapy with a temperature 98.4 with a T-max of 98.5, heart rate is 112, blood pressure is 142/88, respiratory rate is 20, saturation 97% on BiPAP. EYES: No jaundice or pallor. EARS, NOSE, AND THROAT: No ear drainage. No nasal discharge. HEAD AND NECK: No scalp tenderness or neck tenderness. CHEST AND LUNGS: No wheezing, no rhonchi, no crackles. CARDIOVASCULAR: S1, S2 is distinct. Normal rate, regular rhythm. ABDOMEN: Flabby, positive bowel sounds, soft, nondistended, nontender. EXTREMITIES: No joint swelling, no cellulitis. LABORATORY DATA: CBC done today showed a white count of 5.9, hemoglobin is 11.2, hematocrit is 33.7, platelet count is 459. Chemistry showed sodium is 142, potassium 4.5, chloride 100, CO2 is 39, BUN is 14, creatinine 0.49, glucose 157 and calcium is 9.2. ASSESSMENT: 1. ACUTE ON CHRONIC RESPIRATORY FAILURE REQUIRING NONINVASIVE MECHANICAL VENTILATION. Patient still needs noninvasive mechanical ventilation today. Was taken off for a short period of time on BiPAP. Patient could not breathe, tachypnea, and in severe distress. The patient was placed back on BiPAP therapy. 2. VERY SEVERE COPD OR END-STAGE COPD. Currently not in bronchospasm. PLAN/RECOMMENDATION: 1. Continue Solu-Medrol 125 mg IV q.8. 2. Continue the nebulizer treatment. 3. Continue Advair 500 and Spiriva inhaler 1 puff q. daily. 4. GI and DVT prophylaxis. DICTATING PHYSICIAN: ASHLEY GONZALEZ MD,CHARISSE,MPH [id number] [id number] PHY#: [id number] ID: [id number] JOB#: [id number] ACCT: [id number] cc: > LORENZOD
[2018-02-14] MEDS: IPRATROPIUM/ALBUTEROL 0.5-2.5 MG/3 ML AMPUL NEB SCH ×7 (00:28→23:45)
[2018-02-14] MEDS: ALBUTEROL SULFATE HFA (90 MCG/PUFF) 200 PUFF/8.5 GM MDI IH SCH ×6 (02:24→21:42)
[2018-02-14] MEDS ORDERED: ALPRAZOLAM 0.25 MG TABLET PO ONE (04:00)
[2018-02-14] MEDS: ALPRAZOLAM 0.5 MG TABLET PO SCH ×4 (06:08→23:49)
[2018-02-14] MEDS: METHYLPREDNISOLONE INJ 125 MG/2 ML SDV IV SCH ×3 (06:08→21:28)
[2018-02-14] MEDS: FLUTICASONE/SALMETEROL DISKUS 500-50 MCG/DOSE IH SCH ×2 (06:10→17:04)
--- NOTE | 2018-02-14 09:14 | PDOC PROGRESS REPORT ---
Subjective Progress Note for:: 02/14/18 Subjective:: Patient is still on BiPAP She still cannot even take it off for food because she desaturates quickly She is not eating or drinking because of that CT angiogram was negative for PE or lung mass but there was severe emphysema Cellulitis is improving She has not been seen by palliative care yet Reason For Visit: COPD EXACERBATION Physical Exam Vital Signs: Temp Pulse Resp BP Pulse Ox 97.7 F 103 H 21 H 145/73 H 95 02/14/18 07:34 02/14/18 08:13 02/14/18 08:13 02/14/18 07:34 02/14/18 08:13 Pulse Oximeter Continuous Start: 02/12/18 13: 38 Freq: RTQ4 Status: Complete Document 02/12/18 13:00 [facility] (Rec: 02/12/18 13:40 [facility] [id number]) Pulse Oximetry Assessment Oxygen Saturation (92-100) 97 Oxygen Delivery Method Bi-pap Fraction of Inspired Oxygen (FIO2) 45 Equipment Usage Initial Set Up Continuous Pulse Oximeter 24 Hour Charge Charge Now Continuous SpO2 Machine # n2 Pulse Oximeter Continuous Start: 02/12/18 14: 27 Freq: RTQ4 Status: Active Document 02/14/18 08:13 [facility] (Rec: 02/14/18 08:33 [facility] [id number]) Pulse Oximetry Assessment Oxygen Saturation (92-100) 95 Oxygen Delivery Method Bi-pap Fraction of Inspired Oxygen (FIO2) 30 Equipment Usage Equipment in Use Continuous SpO2 Machine # N-2 Intake & Output 02/13/18 02/14/18 02/15/18 06:59 06:59 06:59 Intake Total 1868 758 Balance 1868 758 Weight 134 lb 14.766 oz 141 lb 1.533 oz General appearance: PRESENT: severe distress, thin, other - Patient is on BiPAP Head exam: PRESENT: atraumatic, normocephalic Eye exam: PRESENT: conjunctiva pink, EOMI, PERRLA. ABSENT: scleral icterus Ear exam: PRESENT: normal external ear exam Mouth exam: PRESENT: moist, tongue midline Neck exam: ABSENT: carotid bruit, JVD, lymphadenopathy, thyromegaly Respiratory exam: PRESENT: accessory muscle use, other - Very poor air entry Cardiovascular exam: PRESENT: tachycardia. ABSENT: diastolic murmur, rubs, systolic murmur Pulses: PRESENT: normal dorsalis pedis pul Vascular exam: PRESENT: normal capillary refill GI/Abdominal exam: PRESENT: normal bowel sounds, soft. ABSENT: distended, guarding, mass, organolmegaly, rebound, tenderness Rectal exam: PRESENT: deferred Extremities exam: PRESENT: full ROM. ABSENT: calf tenderness, clubbing, pedal edema Neurological exam: PRESENT: alert, awake, oriented to person, oriented to place , oriented to time, oriented to situation, CN II-XII grossly intact. ABSENT: motor sensory deficit Psychiatric exam: PRESENT: anxious Skin exam: PRESENT: erythema Results Laboratory Results: 02/13/18 04:57 02/13/18 04:57 Impressions: Chest/Abdomen CTA 02/12/18 00:00 IMPRESSION: 1. There is no evidence of pulmonary emboli. 2. Extensive pulmonary emphysema. 3. Cholelithiasis. Chest X-Ray 02/12/18 05:36 IMPRESSION: There are underlying changes of COPD. There is presence of a small ill-defined opacity in the right lower lung zone which may be due to infectious or neoplastic etiology and can be further assessed with a dedicated CT of the chest . Assessment & Plan - Diagnosis (1) Lower extremity cellulitis Is this a current diagnosis for this admission?: Yes Plan: Continue IV ceftriaxone. Follow blood culture (2) Acute and chronic respiratory failure Qualifiers: Respiratory failure complication: hypoxia and hypercapnia Qualified Code(s) : J96.21 - Acute and chronic respiratory failure with hypoxia; J96.22 - Acute and chronic respiratory failure with hypercapnia; J96.22 - Acute and chronic respiratory failure with hypercapnia; J96.22 - Acute and chronic respiratory failure with hypercapnia Is this a current diagnosis for this admission?: Yes Plan: Continue BiPAP. Continue oxygen as needed. Palliative care consult. Very poor prognosis (3) COPD exacerbation Is this a current diagnosis for this admission?: Yes Plan: Continue IV Solu-Medrol 125 mg every 8 hours as recommended by pulmonology. DuoNeb every 4 hours scheduled. Albuterol every 2 hours as needed. Supportive care with BiPAP and oxygen as needed. (4) UTI (urinary tract infection) Qualifiers: Urinary tract infection type: acute cystitis Hematuria presence: without hematuria Qualified Code(s): N30.00 - Acute cystitis without hematuria Is this a current diagnosis for this admission?: Yes Plan: Continue ceftriaxone. Follow final results of urine culture. (5) Esophageal stenosis Is this a current diagnosis for this admission?: No Plan: she gets "stretching surgery" every now and then. She denied dysphagia. She is not able to eat because of severe respiratory distress and the need for BiPAP all the time. (6) Generalized anxiety disorder Is this a current diagnosis for this admission?: Yes Plan: Continue Xanax as needed (7) Generalized weakness Is this a current diagnosis for this admission?: Yes Plan: Physical therapy evaluation and treatment
[2018-02-14] MEDS ORDERED: SODIUM CHLORIDE NASAL SPRAY 44 ML NASL PRN (10:14)
[2018-02-14] MEDS: ASPIRIN 81 MG TABLET, CHEWABLE PO SCH (10:42)
[2018-02-14] MEDS: ENOXAPARIN SODIUM INJ 40 MG/0.4 ML DISP.SYRIN SUBCUT SCH (10:42)
[2018-02-14] MEDS: METOPROLOL TARTRATE 25 MG TABLET PO SCH ×2 (10:42→21:29)
[2018-02-14] MEDS: AZITHROMYCIN 250 MG TABLET PO SCH (10:43)
[2018-02-14] MEDS: CEFTRIAXONE SODIUM 1,000 MG in NORMAL SALINE 50 ML IV SCH (10:43)
[2018-02-14] MEDS: FAMOTIDINE INJ/PF 20 MG/2 ML SDV IV SCH ×2 (10:43→21:29)
[2018-02-14] MEDS: RINGERS SOLUTION,LACTATED 1,000 ML IV PRN (10:44)
[2018-02-14] MEDS: TIOTROPIUM BROMIDE DPI 5 CAP/KIT (18 MCG/CAP) IH SCH (10:44)
[2018-02-14 10:51] LABS: ARTERIAL BLOOD BASE EXCESS 7.7 mmol/L; ARTERIAL BLOOD H2CO3 1.74 mmol/L (1.05-1.35); ARTERIAL BLOOD HCO3 34.3 mmol/L (20-24); ARTERIAL BLOOD O2 SATURATION 95.9 % (94-98); ARTERIAL BLOOD PCO2 57.8 mmHg (35-45); ARTERIAL BLOOD PH 7.39 (7.35-7.45); ARTERIAL BLOOD PO2 83.3 mmHg (80-100); ARTERIAL BLOOD TOTAL CO2 36.1 mmol/L (21-25)
[2018-02-14 10:52] LABS: ARTERIAL BLOOD FIO2 30%
--- NOTE | 2018-02-14 15:01 | PROGRESS NOTE E ---
Progress Note NAME: SOM MCALLISTER : 1945 AGE: 72Y DATE: 02/14/2018 ROOM: 405 SUBJECTIVE: Patient is a 72-year-old female who came in with acute on chronic respiratory failure requiring noninvasive mechanical ventilation or BiPAP therapy. Patient could not tolerate taking off the BiPAP even for a short period of time earlier today, when patient was receiving her medication, getting tachypneic. Patient denies any chest pain. Claims that she is breathing better on the BiPAP. No fever, no chills, no vomiting, no nausea, no hemoptysis. OBJECTIVE: GENERAL: Patient is awake, alert, coherent, afebrile, not in apparent severe respiratory distress, oriented x3. Currently on BiPAP therapy. EYES: No jaundice or pallor. EARS, NOSE AND THROAT: No ear drainage. No nasal discharge. HEAD AND NECK: No scalp swelling. No neck tenderness. CHEST AND LUNGS: No wheezing, no rhonchi, no coarse crackles. On a BiPAP of 15 and 5, FiO2 of 30%, saturation was 95%-96%. Will titrate the FiO2 down. CARDIOVASCULAR: S1, S2 distant. Normal rate, regular rhythm. ABDOMEN: Flabby. Positive bowel sounds. Nondistended, nontender. EXTREMITIES: No joint swelling or cellulitis. LABORATORY DATA: ABG done earlier today on a BiPAP of 15 and 6, FiO2 of 30%, showed a pH of 7.39, pCO2 is 57.8 and pO2 is 83.3 and saturation is 98.9. ASSESSMENT: 1. ACUTE ON CHRONIC RESPIRATORY FAILURE REQUIRING NONINVASIVE MECHANICAL VENTILATION OR BIPAP THERAPY. Currently stable and slowly improving. 2. VERY SEVERE OR END-STAGE COPD/EMPHYSEMA. Currently stable, not in acute severe bronchospasm. 3. SEVERE ANXIETY. PLAN/RECOMMENDATIONS: Will continue the BiPAP therapy. May take the BiPAP off intermittently and put her on nasal cannula. Will titrate the FiO2 to get saturation of 91% to 94% as tolerated. Will continue the nebulizer treatment, DuoNeb every 4 hours. Continue the Solu-Medrol and will continue the IV antibiotics for now. Continue Spiriva inhaler and Advair diskhaler DICTATING PHYSICIAN: ASHLEY GONZALEZ MD,CHARISSE,MPH [id number] [id number] PHY#: [id number] ID: [id number] JOB#: [id number] ACCT: [id number] cc: > HILARIO
[2018-02-14] MEDS ORDERED: DILTIAZEM HCL INJ 25 MG/5 ML VIAL ONE (17:11)
[2018-02-14] MEDS ORDERED: DILTIAZEM HCL/D5W 125 MG/125 ML RTUINJ IV PRN (17:35)
--- NOTE | 2018-02-14 17:36 | EKG REPORT ---
SEVERITY:- ABNORMAL ECG - A-FLUTTER/FIBRILLATION W RVR : Confirmed by: Hunter Kong MD 14-Feb-2018 17:35:02
[2018-02-14] MEDS ORDERED: DILTIAZEM HCL INJ 25 MG/5 ML VIAL IV ONE (17:45)
[2018-02-14] MEDS ORDERED: DILTIAZEM HCL/D5W 125 MG/125 ML RTUINJ IV ONE (18:36)
[2018-02-14] MEDS ORDERED: DILTIAZEM HCL 30 MG TABLET PO ONE (19:15)
[2018-02-14] MEDS: ATORVASTATIN CALCIUM 40 MG TABLET PO SCH (21:29)
[2018-02-15] MEDS: ALBUTEROL SULFATE HFA (90 MCG/PUFF) 200 PUFF/8.5 GM MDI IH SCH ×6 (03:18→21:50)
[2018-02-15] MEDS: DILTIAZEM HCL 30 MG TABLET PO SCH ×3 (03:19→11:48)
[2018-02-15] MEDS: IPRATROPIUM/ALBUTEROL 0.5-2.5 MG/3 ML AMPUL NEB SCH ×5 (04:12→20:59)
[2018-02-15] MEDS: FLUTICASONE/SALMETEROL DISKUS 500-50 MCG/DOSE IH SCH ×2 (05:24→18:59)
[2018-02-15] MEDS: METHYLPREDNISOLONE INJ 125 MG/2 ML SDV IV SCH ×3 (05:24→21:50)
[2018-02-15] MEDS: ALPRAZOLAM 0.5 MG TABLET PO SCH ×2 (05:24→11:48)
[2018-02-15 05:48] LABS: ANION GAP 12 (5-19); BLOOD UREA NITROGEN 32 mg/dL (7-20); CALCIUM 9.2 mg/dL (8.4-10.2); CARBON DIOXIDE 30 mmol/L (22-30); CHLORIDE 100 mmol/L (98-107); GLUCOSE 152 mg/dL (75-110); POTASSIUM 4.5 mmol/L (3.6-5.0); SODIUM 141.6 mmol/L (137-145)
[2018-02-15 05:49] LABS: HEMATOCRIT 32.7 % (36.0-47.0); HEMOGLOBIN 10.9 g/dL (12.0-15.5); MEAN CORPUSCULAR HEMOGLOBIN 31.2 pg (27.0-33.4); MEAN CORPUSCULAR HGB CONC 33.4 g/dL (32.0-36.0); MEAN CORPUSCULAR VOLUME 93 fl (80-97); PLATELET COUNT 325 10^3/uL (150-450); RED BLOOD COUNT 3.51 10^6/uL (3.72-5.28); RED CELL DISTRIBUTION WIDTH 16.1 % (11.5-14.0); WHITE BLOOD COUNT 10.3 10^3/uL (4.0-10.5)
--- NOTE | 2018-02-15 08:18 | RADIOLOGY REPORT (SQ) ---
EXAM DESCRIPTION: CHEST SINGLE VIEW COMPLETED DATE/TIME: 02/15/2018 8:02 am REASON FOR STUDY: COPD COMPARISON: 02/12/2018 CT. 02/12/2018 radiographs. NUMBER OF VIEWS: One view. TECHNIQUE: Single frontal radiographic view of the chest acquired. LIMITATIONS: None. FINDINGS: LUNGS AND PLEURA: No opacities, masses or pneumothorax. No pleural effusion. Attenuated bl ood vessels and flattened richi-diaphragms. MEDIASTINUM AND HILAR STRUCTURES: No masses. Contour normal. HEART AND VASCULAR STRUCTURES: Heart normal in size. Normal vasculature. BONES: No acute findings. HARDWARE: None in the chest. OTHER: No other significant finding. IMPRESSION: COPD. NO ACUTE RADIOGRAPHIC FINDING IN THE CHEST. TECHNICAL DOCUMENTATION: JOB ID: [id number] [employer]- All Rights Reserved Reading location - IP/workstation name: [email or web address]
[2018-02-15] MEDS ORDERED: SUCCINYLCHOLINE CHLORIDE INJ 200 MG/10 ML VIAL ONE (09:11)
--- NOTE | 2018-02-15 09:50 | PDOC PROGRESS REPORT ---
Subjective Progress Note for:: 02/15/18 Subjective:: Patient is still on BiPAP She still cannot even take it off for food because she desaturates quickly She is not eating or drinking because of that CT angiogram was negative for PE or lung mass but there was severe emphysema Cellulitis is improving She has not been seen by palliative care yet He developed A. fib/flutter and she was started on Cardizem drip, currently she is in sinus rhythm in the 90s She still working hard to breathe Reason For Visit: COPD EXACERBATION Physical Exam Vital Signs: Temp Pulse Resp BP Pulse Ox 98.2 F 88 16 149/80 H 95 02/15/18 07:25 02/15/18 07:52 02/15/18 07:52 02/15/18 07:25 02/15/18 07:52 Pulse Oximeter Continuous Start: 02/12/18 13: 38 Freq: RTQ4 Status: Complete Document 02/12/18 13:00 [facility] (Rec: 02/12/18 13:40 [facility] [id number]) Pulse Oximetry Assessment Oxygen Saturation (92-100) 97 Oxygen Delivery Method Bi-pap Fraction of Inspired Oxygen (FIO2) 45 Equipment Usage Initial Set Up Continuous Pulse Oximeter 24 Hour Charge Charge Now Continuous SpO2 Machine # n2 Pulse Oximeter Continuous Start: 02/12/18 14: 27 Freq: RTQ4 Status: Active Document 02/15/18 07:52 J (Rec: 02/15/18 07:58 [facility] [id number]) Pulse Oximetry Assessment Oxygen Saturation (92-100) 95 Oxygen Delivery Method Bi-pap Fraction of Inspired Oxygen (FIO2) 30 Equipment Usage Equipment in Use Continuous SpO2 Machine # 2 Intake & Output 02/14/18 02/15/18 02/16/18 06:59 06:59 06:59 Intake Total 758 50 Output Total 0 Balance 758 50 Weight 141 lb 1.533 oz 139 lb 12.369 oz General appearance: PRESENT: severe distress, thin Head exam: PRESENT: atraumatic, normocephalic Eye exam: PRESENT: conjunctiva pink, EOMI, PERRLA. ABSENT: scleral icterus Ear exam: PRESENT: normal external ear exam Mouth exam: PRESENT: moist, tongue midline Neck exam: ABSENT: carotid bruit, JVD, lymphadenopathy, thyromegaly Respiratory exam: PRESENT: accessory muscle use, decreased breath sounds, wheezes Cardiovascular exam: PRESENT: RRR. ABSENT: diastolic murmur, rubs, systolic murmur Pulses: PRESENT: normal dorsalis pedis pul Vascular exam: PRESENT: normal capillary refill GI/Abdominal exam: PRESENT: normal bowel sounds, soft. ABSENT: distended, guarding, mass, organolmegaly, rebound, tenderness Rectal exam: PRESENT: deferred Extremities exam: PRESENT: full ROM. ABSENT: calf tenderness, clubbing, pedal edema Neurological exam: PRESENT: alert, awake, oriented to person, oriented to place , oriented to time, oriented to situation, CN II-XII grossly intact. ABSENT: motor sensory deficit Psychiatric exam: PRESENT: anxious Skin exam: PRESENT: erythema Results Laboratory Results: 02/15/18 04:58 02/15/18 04:58 02/14/18 02/15/18 02/15/18 10:30 04:58 04:58 WBC 10.3 RBC 3.51 L Hgb 10.9 L Hct 32.7 L MCV 93 MCH 31.2 MCHC 33.4 RDW 16.1 H Plt Count 325 Carbonic Acid 1.74 H HCO3/H2CO3 Ratio 19:1 ABG pH 7.39 ABG pCO2 57.8 H ABG pO2 83.3 ABG HCO3 34.3 H ABG O2 Saturation 95.9 ABG Base Excess 7.7 FiO2 30% Sodium 141.6 Potassium 4.5 Chloride 100 Carbon Dioxide 30 Anion Gap 12 BUN 32 H Creatinine 0.56 Est GFR ( Amer) > 60 Est GFR (Non-Af Amer) > 60 Glucose 152 H Calcium 9.2 02/12/18 16:28 Clean Catch Midstream Urine Culture - Final Mixed Urogenital Anne Impressions: Chest/Abdomen CTA 02/12/18 00:00 IMPRESSION: 1. There is no evidence of pulmonary emboli. 2. Extensive pulmonary emphysema. 3. Cholelithiasis. Chest X-Ray 02/15/18 06:00 IMPRESSION: COPD. NO ACUTE RADIOGRAPHIC FINDING IN THE CHEST. Assessment & Plan - Diagnosis (1) Lower extremity cellulitis Is this a current diagnosis for this admission?: Yes Plan: Improving. Continue IV ceftriaxone. Follow blood culture (2) Acute and chronic respiratory failure Qualifiers: Respiratory failure complication: hypoxia and hypercapnia Qualified Code(s) : J96.21 - Acute and chronic respiratory failure with hypoxia; J96.22 - Acute and chronic respiratory failure with hypercapnia; J96.22 - Acute and chronic respiratory failure with hypercapnia; J96.22 - Acute and chronic respiratory failure with hypercapnia Is this a current diagnosis for this admission?: Yes Plan: Continue BiPAP. Continue oxygen as needed. Palliative care consult pending. Very poor prognosis. Check ABG today. Patient may tire out and need intubation. (3) COPD exacerbation Is this a current diagnosis for this admission?: Yes Plan: Continue IV Solu-Medrol 125 mg every 8 hours as recommended by pulmonology. DuoNeb every 4 hours scheduled. Albuterol every 2 hours as needed. Supportive care with BiPAP and oxygen as needed. (4) UTI (urinary tract infection) Qualifiers: Urinary tract infection type: acute cystitis Hematuria presence: without hematuria Qualified Code(s): N30.00 - Acute cystitis without hematuria Is this a current diagnosis for this admission?: Yes Plan: Continue ceftriaxone. Urine cultures positive for Citrobacter. (5) Esophageal stenosis Is this a current diagnosis for this admission?: No Plan: she gets "stretching surgery" every now and then. She denied dysphagia. She is not able to eat because of severe respiratory distress and the need for BiPAP all the time. (6) Generalized anxiety disorder Is this a current diagnosis for this admission?: Yes Plan: Continue Xanax as needed (7) Generalized weakness Is this a current diagnosis for this admission?: Yes Plan: Physical therapy evaluation and treatment
[2018-02-15] MEDS: AZITHROMYCIN 250 MG TABLET PO SCH (09:54)
[2018-02-15] MEDS: ASPIRIN 81 MG TABLET, CHEWABLE PO SCH (09:54)
[2018-02-15] MEDS: CEFTRIAXONE SODIUM 1,000 MG in NORMAL SALINE 50 ML IV SCH (09:55)
[2018-02-15] MEDS: METOPROLOL TARTRATE 25 MG TABLET PO SCH (09:55)
[2018-02-15] MEDS: FAMOTIDINE INJ/PF 20 MG/2 ML SDV IV SCH ×2 (09:55→21:52)
[2018-02-15] MEDS: ENOXAPARIN SODIUM INJ 40 MG/0.4 ML DISP.SYRIN SUBCUT SCH (09:57)
[2018-02-15] MEDS: TIOTROPIUM BROMIDE DPI 5 CAP/KIT (18 MCG/CAP) IH SCH (09:57)
[2018-02-15 10:43] LABS: ARTERIAL BLOOD BASE EXCESS 3.9 mmol/L; ARTERIAL BLOOD H2CO3 1.91 mmol/L (1.05-1.35); ARTERIAL BLOOD HCO3 31.6 mmol/L (20-24); ARTERIAL BLOOD O2 SATURATION 94.9 % (94-98); ARTERIAL BLOOD PCO2 63.4 mmHg (35-45); ARTERIAL BLOOD PH 7.32 (7.35-7.45); ARTERIAL BLOOD PO2 82.5 mmHg (80-100); ARTERIAL BLOOD TOTAL CO2 33.5 mmol/L (21-25)
[2018-02-15 10:44] LABS: ARTERIAL BLOOD FIO2 30%
[2018-02-15 15:38] LABS: ARTERIAL BLOOD BASE EXCESS 2.6 mmol/L; ARTERIAL BLOOD H2CO3 2.23 mmol/L (1.05-1.35); ARTERIAL BLOOD HCO3 31.8 mmol/L (20-24); ARTERIAL BLOOD O2 SATURATION 91.8 % (94-98); ARTERIAL BLOOD PH 7.25 (7.35-7.45); ARTERIAL BLOOD PO2 73.5 mmHg (80-100); ARTERIAL BLOOD TOTAL CO2 34.1 mmol/L (21-25)
[2018-02-15 15:39] LABS: ARTERIAL BLOOD FIO2 25%
[2018-02-15] MEDS: PROPOFOL 1,000 MG/100 ML INFUS..BTL IV PRN ×2 (16:10→20:20)
[2018-02-15] MEDS ORDERED: MIDAZOLAM HCL 50 MG/100 ML RTUINJ ONE (16:36)
[2018-02-15] MEDS ORDERED: DEXTROSE 40% GEL 15 GM TUBE PO PRN ×2 (16:50)
[2018-02-15] MEDS ORDERED: GLUCAGON,HUMAN RECOMB 1 MG INJ SUBCUT PRN (16:50)
[2018-02-15] MEDS ORDERED: DEXTROSE 50%-WATER 25 GM/50 ML DISP.SYRIN IV PRN ×2 (16:50)
--- NOTE | 2018-02-15 16:51 | Progress Note ---
Provider Note Provider Note: Endotracheal Intubation Date: 02/15/2018 Time: 4: 30 p.m. Indication: Respiratory failure and severe respiratory acidosis Attending: Emma Claire MD A time-out was completed verifying correct patient, procedure, site, positioning , and special equipment if applicable. The patient was placed in a flat position. Sedation was obtained using 100 mg of propofol and 100 mg succinylcholine. The patient was easily ventilated using an ambu bag. The laryngoscope MAC blade was used and inserted into the oropharynx at which time there was a Grade 1 view of the vocal cords. A 8.0 icelandic endotracheal tube was inserted and visualized going through the vocal cords. The stylette was removed. Colorimetric change was visualized on the CO2 meter. Breath sounds were heard in both lung reveles equally. The endotracheal tube was placed at 23 cm, measured at the teeth. <Attending/Resident> was present for the entire procedure. A chest x-ray was ordered to assess for pneumothorax and verify endotrachealtube placement. The patient tolerated the procedure well and there were no complications.
--- NOTE | 2018-02-15 16:58 | RADIOLOGY REPORT (SQ) ---
EXAM DESCRIPTION: KUB/ABDOMEN (SINGLE VIEW) COMPLETED DATE/TIME: 02/15/2018 4:43 pm REASON FOR STUDY: NGT placement COMPARISON: AP chest 02/15/2018 TECHNIQUE: AP chest/upper abdomen film for nasogastric tube placement LIMITATIONS: None. FINDINGS: Endotracheal tube tip is 2 cm above the monster. Nasogastric tube tip and side port in the stomach. Lung bases are grossly clear. IMPRESSION: Nasogastric tube tip and side port in the stomach TECHNICAL DOCUMENTATION: JOB ID: [id number] [employer]- All Rights Reserved Reading location - IP/workstation name: [email or web address]
[2018-02-15] MEDS ORDERED: PHARMACY COMMUNICATION ORDER MC NR (17:00)
--- NOTE | 2018-02-15 17:00 | RADIOLOGY REPORT (SQ) ---
EXAM DESCRIPTION: CHEST SINGLE VIEW COMPLETED DATE/TIME: 02/15/2018 4:43 pm REASON FOR STUDY: ETT COMPARISON: AP chest, 02/15/2018, 0743 hours EXAM PARAMETERS: NUMBER OF VIEWS: One view. TECHNIQUE: Single frontal radiographic view of the chest acquired. RADIATION DOSE: NA LIMITATIONS: None. FINDINGS: LUNGS AND PLEURA: Lungs are hyperinflated and hyperlucent from obstructive disease. No fo kelli infiltrates. No pleural effusion or pneumothorax. MEDIASTINUM AND HILAR STRUCTURES: No masses. Contour normal. HEART AND VASCULAR STRUCTURES: Heart normal in size. Normal vasculature. BONES: No acute findings. HARDWARE: Endotracheal tube tip 2 cm above the monster. Nasogastric tube tip and side port below the hemidiaphragms. OTHER: No other significant finding. IMPRESSION: Obstructive lung disease. No acute infiltrates. Endotracheal tube, nasogastric tube in good positioning TECHNICAL DOCUMENTATION: JOB ID: [id number] [employer]- All Rights Reserved Reading location - IP/workstation name: [email or web address]
--- NOTE | 2018-02-15 17:26 | RADIOLOGY REPORT (SQ) ---
EXAM DESCRIPTION: CT HEAD WITHOUT COMPLETED DATE/TIME: 02/15/2018 5:06 pm REASON FOR STUDY: fall, pt hit head COMPARISON: None. TECHNIQUE: Axial images acquired through the brain without intravenous contrast. Images reviewed wi th bone, brain and subdural windows. Additional sagittal and coronal reconstructions were generated. Images stored on PACS. All CT scanners at this facility use dose modulation, iterative reconstruction, and/or weight based d osing when appropriate to reduce radiation dose to as low as reasonably achievable (ALARA). [facility]: Dose Right [facility]: CareDose [facility]: Dose Right [facility]: Teradose 4D [facility]: [employer] RADIATION DOSE: CT Rad equipment meets quality standard of care and radiation dose reduction techniq ues were employed. CTDIvol: 53.2 mGy. DLP: 1070 mGy-cm. mGy. LIMITATIONS: Motion artifact FINDINGS: Motion artifact throughout the study. On the images without motion, no gross acute large territory ischemic change, acute intracranial hemo rrhage, mass effect, or midline shift. No ventriculomegaly IMPRESSION: Very limited negative study EVIDENCE OF ACUTE STROKE: NO. COMMENT: Quality ID # [id number]: Final reports with documentation of one or more dose reduction techniques (e.g., Automated exposure control, adjustment of the mA and/or kV according to patient size, use of iterative reconstruction technique) TECHNICAL DOCUMENTATION: JOB ID: [id number] [employer]- All Rights Reserved Reading location - IP/workstation name: [email or web address]
[2018-02-15] MEDS ORDERED: NOREPINEPHRINE BITARTRATE INJ/PF 4 MG/4 ML SDV IV ONE (17:45)
[2018-02-15] MEDS ORDERED: DEXTROSE 5%-WATER 250 ML with NOREPINEPHRINE BITARTRATE 4 MG IV PRN ×2 (17:49)
[2018-02-15] MEDS ORDERED: ALPRAZOLAM 0.5 MG TABLET NG SCH (18:00)
--- NOTE | 2018-02-15 18:04 | Operative Report ---
Bedside Procedure - History of Present Illness History of Present Illness: SOM MCALLISTER is a 72 year old female who has history of chronic respiratory failure on home oxygen 24 hours a day. She has severe COPD. Patient apparently has been complaining of generalized weakness and swollen feet for about 3 month along with his cough and shortness of breath. She actually fell asleep one time and had her nose on the table and has significant erythema and large scab on her nasal bridge. She is severely short of breath and does not seem to finish a complete sentence during my evaluation. She is very poor historian as well as her who was present during the examination. Indication for Procedure: IV access, frequent blood sampling Date: 02/15/18 Surgeon: ANTHONY FELIX - Central Line Right Internal jugular Consent obtained: Yes Central line pre-insertion: Sterile PPE donned, Chloraprep applied, Sterile drapes applied Central line lumen type: Triple Ultrasound guided: Yes Line secured with sutures: Yes Central line post-insertion: Blood return from lumens, Biopatch applied, Sutured , Sterile dressing applied, Position confirmed w/ CXR Complications: No
--- NOTE | 2018-02-15 18:17 | RADIOLOGY REPORT (SQ) ---
EXAM DESCRIPTION: CHEST SINGLE VIEW COMPLETED DATE/TIME: 02/15/2018 6:05 pm REASON FOR STUDY: TLC placement COMPARISON: None 1 study from earlier. FINDINGS: AP portable semi-upright study at approximately 1755 hours. Endotracheal and nasogastric tubes remain in place and appropriate. New right IJ line, new right IJ line to the superior vena cava. No pneumothorax. Severe emphysema. TECHNICAL DOCUMENTATION: JOB ID: [id number] Reading location - IP/workstation name: [email or web address]
[2018-02-15 18:37] LABS: ARTERIAL BLOOD BASE EXCESS 0.6 mmol/L; ARTERIAL BLOOD H2CO3 1.49 mmol/L (1.05-1.35); ARTERIAL BLOOD HCO3 26.7 mmol/L (20-24); ARTERIAL BLOOD O2 SATURATION 98.9 % (94-98); ARTERIAL BLOOD PCO2 49.4 mmHg (35-45); ARTERIAL BLOOD PH 7.35 (7.35-7.45); ARTERIAL BLOOD PO2 155.8 mmHg (80-100); ARTERIAL BLOOD TOTAL CO2 28.2 mmol/L (21-25)
[2018-02-15 18:41] LABS: ARTERIAL BLOOD FIO2 40%
[2018-02-15 18:47] LABS: APPEARANCE,URINE TURBID; BILIRUBIN,URINE NEGATIVE (NEGATIVE); COLOR,URINE YELLOW; GLUCOSE, URINE 50 mg/dL (NEGATIVE); KETONES,URINE TRACE mg/dL (NEGATIVE); LEUKOCYTE ESTERASE,URINE LARGE (NEGATIVE); NITRITE,URINE NEGATIVE (NEGATIVE); PROTEIN,URINE 100 mg/dL (NEGATIVE); URINE SPECIFIC GRAVITY 1.024; UROBILINOGEN,URINE NEGATIVE mg/dL (<2.0)
[2018-02-15 18:48] LABS: ANION GAP 6 (5-19); BLOOD UREA NITROGEN 29 mg/dL (7-20); CALCIUM 7.5 mg/dL (8.4-10.2); CARBON DIOXIDE 30 mmol/L (22-30); CHLORIDE 107 mmol/L (98-107); GLUCOSE 139 mg/dL (75-110); POTASSIUM 4.2 mmol/L (3.6-5.0); SODIUM 142.9 mmol/L (137-145)
[2018-02-15] MEDS: DILTIAZEM HCL 30 MG TABLET NG SCH (18:59)
[2018-02-15] MEDS: MIDAZOLAM HCL 50 MG/100 ML RTUINJ IV PRN ×2 (20:16→20:20)
[2018-02-15] MEDS: RINGERS SOLUTION,LACTATED 1,000 ML IV PRN (20:16)
[2018-02-15] MEDS ORDERED: LANSOPRAZOLE 30 MG TAB.RAP.DR PO ONE (21:11)
[2018-02-15] MEDS: ATORVASTATIN CALCIUM 40 MG TABLET NG SCH (21:50)
[2018-02-15] MEDS: METOPROLOL TARTRATE 25 MG TABLET NG SCH ×2 (21:50→23:46)
[2018-02-15] MEDS ORDERED: FAMOTIDINE INJ/PF 20 MG/2 ML SDV IV ONE (21:51)
[2018-02-16] MEDS: IPRATROPIUM/ALBUTEROL 0.5-2.5 MG/3 ML AMPUL NEB SCH ×5 (00:41→15:55)
[2018-02-16] MEDS: ALBUTEROL SULFATE HFA (90 MCG/PUFF) 200 PUFF/8.5 GM MDI IH SCH ×3 (03:12→10:39)
[2018-02-16] MEDS: DILTIAZEM HCL 30 MG TABLET NG SCH ×2 (03:13→05:06)
[2018-02-16] MEDS: PROPOFOL 1,000 MG/100 ML INFUS..BTL IV PRN ×4 (05:02→22:39)
[2018-02-16] MEDS: METHYLPREDNISOLONE INJ 125 MG/2 ML SDV IV SCH ×3 (05:02→21:27)
[2018-02-16 05:24] LABS: ARTERIAL BLOOD BASE EXCESS 1.4 mmol/L; ARTERIAL BLOOD H2CO3 1.06 mmol/L (1.05-1.35); ARTERIAL BLOOD HCO3 24.8 mmol/L (20-24); ARTERIAL BLOOD O2 SATURATION 98.7 % (94-98); ARTERIAL BLOOD PCO2 35.1 mmHg (35-45); ARTERIAL BLOOD PH 7.47 (7.35-7.45); ARTERIAL BLOOD PO2 128.4 mmHg (80-100); ARTERIAL BLOOD TOTAL CO2 25.9 mmol/L (21-25)
[2018-02-16 05:25] LABS: ARTERIAL BLOOD FIO2 30%
[2018-02-16 05:28] LABS: ABSOLUTE LYMPHOCYTES (AUTO) 0.7 10^3/uL (0.5-4.7); ABSOLUTE MONOCYTES (AUTO) 0.6 10^3/uL (0.1-1.4); BASOPHILS % (AUTO) 0.1 % (0-2); HEMATOCRIT 32.8 % (36.0-47.0); HEMOGLOBIN 10.7 g/dL (12.0-15.5); LYMPHOCYTES % (AUTO) 5.2 % (13-45); MEAN CORPUSCULAR HEMOGLOBIN 30.5 pg (27.0-33.4); MEAN CORPUSCULAR HGB CONC 32.6 g/dL (32.0-36.0); MEAN CORPUSCULAR VOLUME 94 fl (80-97); MONOCYTES % (AUTO) 4.1 % (3-13); PLATELET COUNT 361 10^3/uL (150-450); RED BLOOD COUNT 3.51 10^6/uL (3.72-5.28); RED CELL DISTRIBUTION WIDTH 15.7 % (11.5-14.0); SEGMENTED NEUTROPHILS % (AUTO) 90.6 % (42-78); TOTAL CELLS COUNTED % (AUTO) 100 %; WHITE BLOOD COUNT 14.3 10^3/uL (4.0-10.5)
[2018-02-16 05:43] LABS: ANION GAP 13 (5-19); BLOOD UREA NITROGEN 34 mg/dL (7-20); CALCIUM 8.8 mg/dL (8.4-10.2); CARBON DIOXIDE 23 mmol/L (22-30); CHLORIDE 105 mmol/L (98-107); GLUCOSE 152 mg/dL (75-110); POTASSIUM 3.9 mmol/L (3.6-5.0); SODIUM 141.3 mmol/L (137-145)
--- NOTE | 2018-02-16 08:07 | RADIOLOGY REPORT (SQ) ---
EXAM DESCRIPTION: CHEST SINGLE VIEW COMPLETED DATE/TIME: 02/16/2018 6:08 am REASON FOR STUDY: portable ventilation COMPARISON: AP chest 02/15/2018, 02/12/2018 CT chest 02/12/2018 EXAM PARAMETERS: NUMBER OF VIEWS: One view. TECHNIQUE: Single frontal radiographic view of the chest acquired. RADIATION DOSE: NA LIMITATIONS: None. FINDINGS: LUNGS AND PLEURA: Marked hyperinflation and hyperlucency from obstructive disease. No pne umothorax. No pleural effusion. No gross acute infiltrates MEDIASTINUM AND HILAR STRUCTURES: No masses. Contour normal. HEART AND VASCULAR STRUCTURES: Heart normal in size. Normal vasculature. BONES: No acute findings. HARDWARE: Endotracheal tube tip 3 cm above the monster. Right jugular central line tip superior vena cava. Nasogastric tube tip and side port below the hemidiaphragms OTHER: No other significant finding. IMPRESSION: Tubes and lines in good positioning. Marked hyperinflation and hyperlucency from obstructive lung disease TECHNICAL DOCUMENTATION: JOB ID: [id number] [employer]- All Rights Reserved Reading location - IP/workstation name: [email or web address]
[2018-02-16] MEDS: METOPROLOL TARTRATE 25 MG TABLET NG SCH ×3 (10:39→21:26)
[2018-02-16] MEDS: CEFTRIAXONE SODIUM 1,000 MG in NORMAL SALINE 50 ML IV SCH (10:54)
[2018-02-16] MEDS: ENOXAPARIN SODIUM INJ 40 MG/0.4 ML DISP.SYRIN SUBCUT SCH (10:54)
[2018-02-16] MEDS: ASPIRIN 81 MG TABLET, CHEWABLE NG SCH (10:55)
[2018-02-16] MEDS: AZITHROMYCIN 250 MG TABLET NG SCH (10:55)
[2018-02-16] MEDS ORDERED: NORMAL SALINE 500 ML IV ONE (11:00)
[2018-02-16] MEDS ORDERED: DEXTROSE 5%-WATER 250 ML with NOREPINEPHRINE BITARTRATE 4 MG IV PRN ×2 (11:59)
[2018-02-16] MEDS: NORMAL SALINE 1000 ML 1,000 ML IV PRN (12:00)
[2018-02-16] MEDS: MIDAZOLAM HCL 50 MG/100 ML RTUINJ IV PRN (15:31)
[2018-02-16 16:07] LABS: ARTERIAL BLOOD BASE EXCESS 0.6 mmol/L; ARTERIAL BLOOD H2CO3 1.13 mmol/L (1.05-1.35); ARTERIAL BLOOD HCO3 24.7 mmol/L (20-24); ARTERIAL BLOOD O2 SATURATION 98.2 % (94-98); ARTERIAL BLOOD PCO2 37.7 mmHg (35-45); ARTERIAL BLOOD PH 7.44 (7.35-7.45); ARTERIAL BLOOD PO2 110.3 mmHg (80-100); ARTERIAL BLOOD TOTAL CO2 25.9 mmol/L (21-25)
[2018-02-16 16:08] LABS: ARTERIAL BLOOD FIO2 30%
--- NOTE | 2018-02-16 16:50 | PDOC PROGRESS REPORT ---
Subjective Progress Note for:: 02/16/18 - Seen on rounds early this morning Subjective:: Patient is intubated and sedated. I did speak with patient's boyfriend who is at bedside. He states that he is her medical POA. He states that it is in the paper. There is nothing on our chart and hence I have asked him to bring people public welfare worker-he said he will. I have answered all his questions regarding patient's care. Reason For Visit: COPD EXACERBATION Physical Exam Vital Signs: Temp Pulse Resp BP Pulse Ox 98.1 F 87 20 125/63 97 02/16/18 11:38 02/16/18 11:55 02/16/18 11:55 02/16/18 11:38 02/16/18 11:55 Pulse Oximeter Continuous Start: 02/12/18 13: 38 Freq: RTQ4 Status: Complete Document 02/12/18 13:00 [facility] (Rec: 02/12/18 13:40 [facility] [email or web address]) Pulse Oximetry Assessment Oxygen Saturation (92-100) 97 Oxygen Delivery Method Bi-pap Fraction of Inspired Oxygen (FIO2) 45 Equipment Usage Initial Set Up Continuous Pulse Oximeter 24 Hour Charge Charge Now Continuous SpO2 Machine # n2 Pulse Oximeter Continuous Start: 02/12/18 14: 27 Freq: RTQ4 Status: Complete Document 02/15/18 17:24 J[facility] (Rec: 02/15/18 17:24 J[facility] [email or web address]) Pulse Oximetry Assessment Equipment Usage Equipment Discontinued Continuous SpO2 Machine # 2 Intake & Output 02/15/18 02/16/18 02/17/18 06:59 06:59 06:59 Intake Total 7794 730 4890 Output Total 0 215 95 Balance 1050 -10 1638 Weight 139 lb 12.369 oz 131 lb 13.383 oz General appearance: PRESENT: no acute distress, other - Ventilator dependent- resting comfortably on the bed Head exam: PRESENT: atraumatic, normocephalic Eye exam: ABSENT: scleral icterus Ear exam: PRESENT: normal external ear exam Mouth exam: PRESENT: other - ET and OG tube noted Neck exam: PRESENT: other - Right sided central line noted. ABSENT: tracheal deviation Respiratory exam: PRESENT: decreased breath sounds - Slightly decreased in bilateral lung reveles, symmetrical. ABSENT: accessory muscle use, unlabored, wheezes Cardiovascular exam: PRESENT: +S1, +S2 Pulses: PRESENT: +2 pedal pulses bilateral Vascular exam: PRESENT: normal capillary refill GI/Abdominal exam: PRESENT: normal bowel sounds, soft Gentrourinary exam: PRESENT: other - Mcallister noted with dark colored urine in bag Extremities exam: ABSENT: joint swelling, pedal edema Neurological exam: PRESENT: other - Sedated-ventilator dependent Skin exam: PRESENT: dry, warm Results Laboratory Results: 02/16/18 05:00 02/16/18 05:00 02/15/18 02/15/18 02/15/18 18:00 18:00 18:00 WBC RBC Hgb Hct MCV MCH MCHC RDW Plt Count Seg Neutrophils % Lymphocytes % Monocytes % Eosinophils % Basophils % Absolute Neutrophils Absolute Lymphocytes Absolute Monocytes Absolute Eosinophils Absolute Basophils Carbonic Acid 1.49 H HCO3/H2CO3 Ratio 17:1 ABG pH 7.35 ABG pCO2 49.4 H ABG pO2 155.8 H ABG HCO3 26.7 H ABG O2 Saturation 98.9 H ABG Base Excess 0.6 FiO2 40% Sodium 142.9 Potassium 4.2 Chloride 107 Carbon Dioxide 30 Anion Gap 6 BUN 29 H Creatinine 0.54 Est GFR ( Amer) > 60 Est GFR (Non-Af Amer) > 60 Glucose 139 H Calcium 7.5 L Magnesium 2.0 Urine Color YELLOW Urine Appearance TURBID Urine pH 5.0 Ur Specific [place] 1.024 Urine Protein 100 H Urine Glucose (UA) 50 H Urine Ketones TRACE H Urine Blood LARGE H Urine Nitrite NEGATIVE Ur Leukocyte Esterase LARGE H Urine WBC (Auto) >182 Urine RBC (Auto) 91 02/16/18 02/16/18 02/16/18 05:00 05:00 05:00 WBC 14.3 H RBC 3.51 L Hgb 10.7 L Hct 32.8 L MCV 94 MCH 30.5 MCHC 32.6 RDW 15.7 H Plt Count 361 Seg Neutrophils % 90.6 H Lymphocytes % 5.2 L Monocytes % 4.1 Eosinophils % 0.0 Basophils % 0.1 Absolute Neutrophils 13.0 H Absolute Lymphocytes 0.7 Absolute Monocytes 0.6 Absolute Eosinophils 0.0 Absolute Basophils 0.0 Carbonic Acid 1.06 HCO3/H2CO3 Ratio 23:1 ABG pH 7.47 H ABG pCO2 35.1 ABG pO2 128.4 H ABG HCO3 24.8 H ABG O2 Saturation 98.7 H ABG Base Excess 1.4 FiO2 30% Sodium 141.3 Potassium 3.9 Chloride 105 Carbon Dioxide 23 Anion Gap 13 BUN 34 H Creatinine 0.70 Est GFR ( Amer) > 60 Est GFR (Non-Af Amer) > 60 Glucose 152 H Calcium 8.8 Magnesium Urine Color Urine Appearance Urine pH Ur Specific [place] Urine Protein Urine Glucose (UA) Urine Ketones Urine Blood Urine Nitrite Ur Leukocyte Esterase Urine WBC (Auto) Urine RBC (Auto) Impressions: Chest/Abdomen CTA 02/12/18 00:00 IMPRESSION: 1. There is no evidence of pulmonary emboli. 2. Extensive pulmonary emphysema. 3. Cholelithiasis. Head CT 02/15/18 00:00 IMPRESSION: Very limited negative study EVIDENCE OF ACUTE STROKE: NO. KUB X-Ray 02/15/18 00:00 IMPRESSION: Nasogastric tube tip and side port in the stomach Chest X-Ray 02/16/18 05:00 IMPRESSION: Tubes and lines in good positioning. Marked hyperinflation and hyperlucency from obstructive lung disease Assessment & Plan - Diagnosis (1) Acute and chronic respiratory failure Qualifiers: Respiratory failure complication: hypoxia and hypercapnia Qualified Code(s) : J96.21 - Acute and chronic respiratory failure with hypoxia; J96.22 - Acute and chronic respiratory failure with hypercapnia; J96.22 - Acute and chronic respiratory failure with hypercapnia; J96.22 - Acute and chronic respiratory failure with hypercapnia Is this a current diagnosis for this admission?: Yes Plan: Acute respiratory failure with hypoxia and hypercapnia secondary to COPD exacerbation. Yesterday she decompensated after being on BiPAP for more than 36 hours and hence had to be intubated for airway protection. She continues to require ventilator support to maintain airway. This morning her ABG showed pH of 7.47 with PCO2 of 31. Spoke with respiratory and adjusted her respiratory alkalosis with decreased rate. Repeat ABG in the afternoon is much improved. Will repeat ABG in the morning. (2) COPD exacerbation Is this a current diagnosis for this admission?: Yes Plan: CT of the chest did show emphysema and COPD. Currently on Solu-Medrol 80 mg IV every 8 hours. Pulmonology is on consult-appreciate assistance. She was on DuoNeb but her heart rate was greater than 100- I have made DuoNeb as needed and added Xopenex every 8 hours scheduled. She was also started on azithromycin yesterday, 02/15/18. At home she is on Advair and Spiriva along with albuterol as needed. Continue with aggressive pulmonary hygiene as tolerated. (3) Ventilator dependent Is this a current diagnosis for this admission?: Yes Plan: Currently ventilator dependent due to her COPD exacerbation and acute respiratory failure with hypoxia and hypercapnia. Unfortunately she has been requiring a lot of sedation due to agitation with propofol and Versed but this inadvertently is causing hypotension and hence Levophed was added. I spoken with ICU team today regarding weaning propofol and Versed. She is currently on metoprolol 25 mg twice daily and Cardizem 30 mg every 6 hours. At home she is on metoprolol 25 mg twice daily and I am not sure why since her chart does not note any hypertension or coronary disease. I have stopped the Cardizem and decrease the metoprolol to 12-1/2 due to her hypotension and requiring levophed. Discussed with ICU team about weaning Levophed. I added Protonix for GI prophylaxis and she is on Lovenox for DVT prophylaxis (4) UTI (urinary tract infection) Qualifiers: Urinary tract infection type: acute cystitis Hematuria presence: without hematuria Qualified Code(s): N30.00 - Acute cystitis without hematuria Is this a current diagnosis for this admission?: Yes Plan: Urine culture from 02/12 did show Citrobacter and strep viridans-currently on Rocephin IV-continue (5) Lower extremity cellulitis Is this a current diagnosis for this admission?: Yes Plan: Resolved-I do not notice any lower extremity erythema today - Time Total Critical Time (Minutes): 45 - Plan Summary Plan Summary: Patient unfortunately has a poor prognosis given her COPD status and currently being in respiratory failure with ventilator support. We will try to wean her off of the vent as much as tolerated.
[2018-02-16] MEDS ORDERED: NORMAL SALINE 1000 ML 1,000 ML IV ONE (17:00)
[2018-02-16] MEDS ORDERED: PANTOPRAZOLE SODIUM 40 MG VIAL IV ONE (17:00)
[2018-02-16] MEDS ORDERED: LEVALBUTEROL HCL NEB 1.25 MG/3 ML AMPUL NEB ONE ×2 (17:00→17:15)
[2018-02-16] MEDS ORDERED: IPRATROPIUM/ALBUTEROL 0.5-2.5 MG/3 ML AMPUL NEB PRN (17:01)
[2018-02-16] MEDS: ATORVASTATIN CALCIUM 40 MG TABLET NG SCH (21:26)
--- NOTE | 2018-02-16 21:33 | PROGRESS NOTE E ---
Progress Note NAME: SOM MCALLISTER : 1945 AGE: 72Y DATE: 02/16/2018 ROOM: 334 SUBJECTIVE: Patient is a 72-year-old female who came in acute respiratory failure requiring initially non-invasive mechanical ventilation/BiPAP therapy. Did not tolerate it after 4 days. Eventually got endotracheally intubated and mechanically intubated. Patient has been afebrile for the last 3 to 4 hours with a temperature of 98.1 with a T-max of 98.4. Vital signs have been stable. OBJECTIVE: VITAL SIGNS: Currently, patient is sedated and afebrile, not in apparent respiratory distress, with a heart rate of 87, blood pressure of 125/63, respirations 20, saturation 97% on 30% FiO2. SIMV rate of 14, tidal volume of 400, pressure support of 10, PEEP of 5, peak airway pressures of 25. EYES: No jaundice or pallor. EARS, NOSE AND THROAT: No ear drainage. No nasal discharge. CHEST AND LUNGS: No wheezing and no rhonchi noted. No coarse crackles. CARDIOVASCULAR: S1, S2 distant. Normal rate, regular rhythm. ABDOMEN: Flabby. Positive bowel sounds. Soft, nondistended, nontender. EXTREMITIES: No joint swelling and no cellulitis. LABORATORY DATA: ABGs done this morning at 5:00 showed pH of 7.47, pCO2 of 35, pO2 of 128, saturation 98.7. Sodium is 141.3, potassium is 3.9, chloride 105, CO2 is 33, BUN 34, creatinine is 0.7, glucose 152 and calcium is 8.8. CBC done today showed white count of 14.3, hemoglobin is 10.7, hematocrit is 32.8, platelet count is 361,000. ASSESSMENT: 1. ACUTE RESPIRATORY FAILURE REQUIRING INVASIVE MECHANICAL VENTILATION. Appears to be doing well. 2. VERY SEVERE END-STAGE COPD IN ACUTE EXACERBATION. No apparent bronchospasm. PLAN/RECOMMENDATION: Will continue invasive mechanical ventilatory support. Patient's ventilator rate was cut down to 14. I do not think that rate is enough. Will repeat the ABG in an hour. Agree with initiation of G-tube feeding. Continue IV antibiotics. Will decrease the IV Solu-Medrol to 80 mg q.6 hours. DICTATING PHYSICIAN: ASHLEY GONZALEZ MD,CHARISSE,MPH [id number] PHY#: [id number] ID: [id number] JOB#: [id number] ACCT: [id number] cc: > LORENZOD
[2018-02-17] MEDS: LEVALBUTEROL HCL NEB 1.25 MG/3 ML AMPUL NEB SCH ×3 (00:21→16:16)
[2018-02-17] MEDS: NORMAL SALINE 1000 ML 1,000 ML IV PRN ×2 (03:47→23:12)
[2018-02-17] MEDS: METHYLPREDNISOLONE INJ 125 MG/2 ML SDV IV SCH ×5 (05:07→22:06)
[2018-02-17 05:25] LABS: ABSOLUTE LYMPHOCYTES (AUTO) 0.4 10^3/uL (0.5-4.7); ABSOLUTE MONOCYTES (AUTO) 0.3 10^3/uL (0.1-1.4); ABSOLUTE NEUT (AUTO) 5.9 10^3/uL (1.7-8.2); BASOPHILS % (AUTO) 0.1 % (0-2); HEMOGLOBIN 9.6 g/dL (12.0-15.5); LYMPHOCYTES % (AUTO) 6.2 % (13-45); MEAN CORPUSCULAR HEMOGLOBIN 30.9 pg (27.0-33.4); MEAN CORPUSCULAR HGB CONC 33.2 g/dL (32.0-36.0); MEAN CORPUSCULAR VOLUME 93 fl (80-97); MONOCYTES % (AUTO) 3.8 % (3-13); PLATELET COUNT 206 10^3/uL (150-450); RED BLOOD COUNT 3.12 10^6/uL (3.72-5.28); RED CELL DISTRIBUTION WIDTH 15.7 % (11.5-14.0); SEGMENTED NEUTROPHILS % (AUTO) 89.9 % (42-78); TOTAL CELLS COUNTED % (AUTO) 100 %; WHITE BLOOD COUNT 6.6 10^3/uL (4.0-10.5)
[2018-02-17 05:26] LABS: ARTERIAL BLOOD BASE EXCESS -1.1 mmol/L; ARTERIAL BLOOD FIO2 30%; ARTERIAL BLOOD H2CO3 1.21 mmol/L (1.05-1.35); ARTERIAL BLOOD HCO3 23.7 mmol/L (20-24); ARTERIAL BLOOD O2 SATURATION 97.8 % (94-98); ARTERIAL BLOOD PCO2 40.1 mmHg (35-45); ARTERIAL BLOOD PH 7.39 (7.35-7.45); ARTERIAL BLOOD PO2 106.2 mmHg (80-100)
[2018-02-17 05:48] LABS: ANION GAP 6 (5-19); BLOOD UREA NITROGEN 29 mg/dL (7-20); CALCIUM 7.8 mg/dL (8.4-10.2); CARBON DIOXIDE 24 mmol/L (22-30); CHLORIDE 111 mmol/L (98-107); GLUCOSE 162 mg/dL (75-110); POTASSIUM 3.7 mmol/L (3.6-5.0); SODIUM 141.3 mmol/L (137-145)
[2018-02-17] MEDS: PROPOFOL 1,000 MG/100 ML INFUS..BTL IV PRN ×3 (06:21→23:12)
[2018-02-17] MEDS: ASPIRIN 81 MG TABLET, CHEWABLE NG SCH (10:35)
[2018-02-17] MEDS: ALPRAZOLAM 0.5 MG TABLET PO PRN (10:35)
[2018-02-17] MEDS: CEFTRIAXONE SODIUM 1,000 MG in NORMAL SALINE 50 ML IV SCH (10:35)
[2018-02-17] MEDS: AZITHROMYCIN 250 MG TABLET NG SCH (10:35)
[2018-02-17] MEDS: PANTOPRAZOLE SODIUM 40 MG VIAL IV SCH (10:35)
[2018-02-17] MEDS: METOPROLOL TARTRATE 25 MG TABLET NG SCH ×2 (10:35→22:04)
[2018-02-17] MEDS: ENOXAPARIN SODIUM INJ 40 MG/0.4 ML DISP.SYRIN SUBCUT SCH (10:35)
[2018-02-17 11:44] LABS: ARTERIAL BLOOD BASE EXCESS -3.2 mmol/L; ARTERIAL BLOOD H2CO3 1.59 mmol/L (1.05-1.35); ARTERIAL BLOOD O2 SATURATION 95.2 % (94-98); ARTERIAL BLOOD PCO2 52.9 mmHg (35-45); ARTERIAL BLOOD PH 7.28 (7.35-7.45); ARTERIAL BLOOD TOTAL CO2 25.6 mmol/L (21-25)
[2018-02-17 11:45] LABS: ARTERIAL BLOOD FIO2 30%
[2018-02-17] MEDS ORDERED: FUROSEMIDE INJ/PF 20 MG/2 ML SDV ONE (12:38)
[2018-02-17] MEDS: FUROSEMIDE INJ/PF 20 MG/2 ML SDV IV SCH (12:50)
[2018-02-17] MEDS: MIDAZOLAM HCL 50 MG/100 ML RTUINJ IV PRN (14:33)
--- NOTE | 2018-02-17 14:53 | RADIOLOGY REPORT (SQ) ---
EXAM DESCRIPTION: CHEST SINGLE VIEW COMPLETED DATE/TIME: 02/17/2018 2:45 pm REASON FOR STUDY: resp. failure COMPARISON: None. NUMBER OF VIEWS: One view. TECHNIQUE: Single frontal radiographic image of the chest acquired. LIMITATIONS: None. FINDINGS: LUNGS AND PLEURA: Stable appearance. MEDIASTINUM AND HILAR STRUCTURES: Stable heart size and mediastinal structures. HEART AND VASCULAR STRUCTURES: Stable appearance. SUPPORT DEVICES: Appropriate location without change. BONES: No acute findings. OTHER: No other significant finding. IMPRESSION: STABLE APPEARANCE OF THE CHEST. SUPPORT DEVICES UNCHANGED. TECHNICAL DOCUMENTATION: JOB ID: [id number] [employer]- All Rights Reserved Reading location - IP/workstation name: [email or web address]
--- NOTE | 2018-02-17 15:23 | PROGRESS NOTE E ---
Progress Note NAME: SOM MCALLISTER : 1945 AGE: 72Y DATE: 02/15/2018 ROOM: 606 SUBJECTIVE: The patient is a 72-year-old female who came in for acute respiratory failure requiring BiPAP therapyon. ABGs showed pH of 7.2. The patient was subsequently endotracheally intubated and mechanically ventilated and was transferred to ICU. OBJECTIVE: GENERAL: Currently, the patient is sedated, afebrile, appeared to be breathing comfortably on invasive mechanical ventilator. She was seen with a respiratory rate of 18, tidal volume 400, pressure support of 10, PEEP of 5, FiO2 of 40%, with saturation about 100%. FiO2 titrated down to 30%. EYES: No jaundice or pallor. EARS, NOSE, AND THROAT: No ear drainage. No nasal discharge. The endotracheal tube is in place. CHEST AND LUNGS: No wheezing. No rhonchi. No coarse crackles. CARDIOVASCULAR: S1, S2 distant. Normal rate, regular rhythm. ABDOMEN: Flabby. Positive bowel sounds. Soft, nondistended. EXTREMITIES: No joint swelling. No cellulitis. LABORATORY DATA: CBC done today showed white count of 10.3, hemoglobin 10.9, hematocrit is 32.7, and platelet count is 325. ABG tonight at 6:00 p.m. on the ventilator showed a pH of 7.35, PCO2 of 39.4, saturation 98.9. Chemistry done today showed sodium was 134, potassium 4.2, chloride is 107, CO2 is 30, creatinine is 0.54. Glucose is 159. Calcium is 7.5. Magnesium is 2. DIAGNOSTIC STUDIES: Chest x-ray done today showed no pneumothorax, no pleural infiltrate. ASSESSMENT: 1. [id number] RESPIRATORY FAILURE REQUIRING INVASIVE MECHANICAL VENTILATION, CURRENTLY ENDOTRACHEALLY INTUBATED AND MECHANICALLY VENTILATED. 2. SEVERE END-STAGE CHRONIC OBSTRUCTIVE PULMONARY DISEASE WITH SEVERE EXACERBATION. PLAN AND RECOMMENDATIONS: 1. We will continue to optimize ventilator support, currently placed on SIMV rate of 16, tidal volume 400, pressure support of 10, PEEP of 5, FiO2 30%. FiO2 to titrate it to keep saturation 91-94%. 2. We will continue on nebulizer treatment, DuoNeb every 4 hours, and albuterol nebulizer treatment every 2 hours as needed. 4. Will use Prevacid. Discontinue the Pepcid. The patient started on Prevacid 30 mg per NG tube. 5. Continue Solu-Medrol 125 mg IV q. 8 hours. 6. Continue DVT prophylaxis using Lovenox 40 mg. DICTATING PHYSICIAN: ASHLEY GONZALEZ MD,CHARISSE,MPH [id number] PHY#: [id number] ID: [id number] JOB#: [id number] ACCT: [id number] cc: > MTDD
[2018-02-17 16:16] LABS: HEMATOCRIT 31.8 % (36.0-47.0); HEMOGLOBIN 10.2 g/dL (12.0-15.5); MEAN CORPUSCULAR HEMOGLOBIN 30.6 pg (27.0-33.4); MEAN CORPUSCULAR HGB CONC 32.2 g/dL (32.0-36.0); MEAN CORPUSCULAR VOLUME 95 fl (80-97); PLATELET COUNT 253 10^3/uL (150-450); RED BLOOD COUNT 3.35 10^6/uL (3.72-5.28); RED CELL DISTRIBUTION WIDTH 16.3 % (11.5-14.0); WHITE BLOOD COUNT 11.9 10^3/uL (4.0-10.5)
[2018-02-17 16:23] LABS: INTERNATIONAL RATION (INR) 1.15; PARTIAL THROMBOPLASTIN TIME 28.7 SEC (23.5-35.8); PROTHROMBIN TIME 15.3 SEC (11.4-15.4)
[2018-02-17 16:26] LABS: D-DIMER 0.93 ug/mL (0.00-0.50)
[2018-02-17 16:39] LABS: ALANINE AMINOTRANSFERASE 50 U/L (9-52); ALBUMIN 2.9 g/dL (3.5-5.0); ALKALINE PHOSPHATASE 32 U/L (38-126); ANION GAP 6 (5-19); ASPARTATE AMINO TRANSFERASE 33 U/L (14-36); BILIRUBIN,DIRECT 0.2 mg/dL (0.0-0.4); BILIRUBIN,TOTAL 0.2 mg/dL (0.2-1.3); BLOOD UREA NITROGEN 30 mg/dL (7-20); CALCIUM 8.2 mg/dL (8.4-10.2); CARBON DIOXIDE 24 mmol/L (22-30); CHLORIDE 110 mmol/L (98-107); GLUCOSE 162 mg/dL (75-110); POTASSIUM 3.9 mmol/L (3.6-5.0); SODIUM 140.1 mmol/L (137-145); TOTAL PROTEIN 5.6 g/dL (6.3-8.2)
--- NOTE | 2018-02-17 17:26 | PDOC PROGRESS REPORT ---
Subjective Progress Note for:: 02/17/18 Subjective:: Pt seen at bed side. She is still sedated with Propofol at 20 mcg/kg/min and Versed at 4 mg/hr due to failed weaning trial today. Her WBC increased to 11.9 and she had bleeding around the central line, but her PT/PTT is normal and platelets is normal. Her sputum culture grew yeast. Lasix 20 mg IV stat and 20 mg daily IV was added due to concern about possible pulmonary congestion and IV fluids was reduced to 75 cc/hr. No bowel movement yet. She was started on tube feeding last night with Oxepa 1.5 at 10 cc/hr.Pt is still on [facility]. ventilation at FiO2 of 30, Resp. rate of 16, PEEP of 5 and pressure support of 12. Reason For Visit: COPD EXACERBATION Physical Exam Vital Signs: Temp Pulse Resp BP Pulse Ox 97.3 F 84 16 107/52 L 99 02/17/18 06:28 02/17/18 16:17 02/17/18 16:17 02/17/18 06:28 02/17/18 16:17 Pulse Oximeter Continuous Start: 02/12/18 13: 38 Freq: RTQ4 Status: Complete Document 02/12/18 13:00 [facility] (Rec: 02/12/18 13:40 [facility] [email or web address]) Pulse Oximetry Assessment Oxygen Saturation (92-100) 97 Oxygen Delivery Method Bi-pap Fraction of Inspired Oxygen (FIO2) 45 Equipment Usage Initial Set Up Continuous Pulse Oximeter 24 Hour Charge Charge Now Continuous SpO2 Machine # n2 Pulse Oximeter Continuous Start: 02/12/18 14: 27 Freq: RTQ4 Status: Complete Document 02/15/18 17:24 J (Rec: 02/15/18 17:24 [facility] [email or web address]) Pulse Oximetry Assessment Equipment Usage Equipment Discontinued Continuous SpO2 Machine # 2 Intake & Output 02/16/18 02/17/18 02/18/18 06:59 06:59 06:59 Intake Total 205 4060 1246 Output Total 215 806 750 Balance -10 5001 496 Weight 59.8 kg 64.8 kg General appearance: PRESENT: no acute distress, well-developed, well-nourished Head exam: PRESENT: atraumatic, normocephalic Mouth exam: PRESENT: neck supple Respiratory exam: PRESENT: decreased breath sounds, symmetrical Cardiovascular exam: PRESENT: +S1, +S2 Pulses: PRESENT: +1 pedal pulses bilateral GI/Abdominal exam: PRESENT: normal bowel sounds, soft Rectal exam: PRESENT: deferred Additional comments: Pt is on mech ventilation and is sedated. Results Laboratory Results: 02/17/18 16:10 02/17/18 16:10 02/17/18 02/17/18 02/17/18 05:15 05:15 05:15 WBC 6.6 RBC 3.12 L Hgb 9.6 L Hct 29.0 L MCV 93 MCH 30.9 MCHC 33.2 RDW 15.7 H Plt Count 206 Seg Neutrophils % 89.9 H Lymphocytes % 6.2 L Monocytes % 3.8 Eosinophils % 0.0 Basophils % 0.1 Absolute Neutrophils 5.9 Absolute Lymphocytes 0.4 L Absolute Monocytes 0.3 Absolute Eosinophils 0.0 Absolute Basophils 0.0 Carbonic Acid 1.21 HCO3/H2CO3 Ratio 19:1 ABG pH 7.39 ABG pCO2 40.1 ABG pO2 106.2 H ABG HCO3 23.7 ABG O2 Saturation 97.8 ABG Base Excess -1.1 FiO2 30% Sodium 141.3 Potassium 3.7 Chloride 111 H Carbon Dioxide 24 Anion Gap 6 BUN 29 H Creatinine 0.67 Est GFR ( Amer) > 60 Est GFR (Non-Af Amer) > 60 Glucose 162 H Calcium 7.8 L Magnesium 2.0 Total Bilirubin AST ALT Alkaline Phosphatase Total Protein Albumin 02/17/18 02/17/18 02/17/18 11:10 16:10 16:10 WBC 11.9 H RBC 3.35 L Hgb 10.2 L Hct 31.8 L MCV 95 MCH 30.6 MCHC 32.2 RDW 16.3 H Plt Count 253 Seg Neutrophils % Lymphocytes % Monocytes % Eosinophils % Basophils % Absolute Neutrophils Absolute Lymphocytes Absolute Monocytes Absolute Eosinophils Absolute Basophils Carbonic Acid 1.59 H HCO3/H2CO3 Ratio 15:1 ABG pH 7.28 L ABG pCO2 52.9 H ABG pO2 86.0 ABG HCO3 24.0 ABG O2 Saturation 95.2 ABG Base Excess -3.2 FiO2 30% Sodium 140.1 Potassium 3.9 Chloride 110 H Carbon Dioxide 24 Anion Gap 6 BUN 30 H Creatinine 0.77 Est GFR ( Amer) > 60 Est GFR (Non-Af Amer) > 60 Glucose 162 H Calcium 8.2 L Magnesium Total Bilirubin 0.2 AST 33 ALT 50 Alkaline Phosphatase 32 L Total Protein 5.6 L Albumin 2.9 L 02/15/18 18:00 Mcallister Catheter Urine Culture - Final NO GROWTH 2 DAYS 02/17/18 05:15 NT-Pro-B Natriuret Pep 403 Impressions: Chest/Abdomen CTA 02/12/18 00:00 IMPRESSION: 1. There is no evidence of pulmonary emboli. 2. Extensive pulmonary emphysema. 3. Cholelithiasis. Head CT 02/15/18 00:00 IMPRESSION: Very limited negative study EVIDENCE OF ACUTE STROKE: NO. KUB X-Ray 02/15/18 00:00 IMPRESSION: Nasogastric tube tip and side port in the stomach Chest X-Ray 02/17/18 00:00 IMPRESSION: STABLE APPEARANCE OF THE CHEST. SUPPORT DEVICES UNCHANGED. Assessment & Plan - Diagnosis (1) Acute and chronic respiratory failure Qualifiers: Respiratory failure complication: hypoxia and hypercapnia Qualified Code(s) : J96.21 - Acute and chronic respiratory failure with hypoxia; J96.22 - Acute and chronic respiratory failure with hypercapnia; J96.22 - Acute and chronic respiratory failure with hypercapnia; J96.22 - Acute and chronic respiratory failure with hypercapnia Is this a current diagnosis for this admission?: Yes Plan: Ct with [facility]. ventilation. Ct with IV fluids normal saline at 75 cc/hr; Ct with Lasix 20 mg daily IV; strict input/output chart. Daily weight; Monitor chemistries daily and CBC daily; f/u engineering team supervisor, Dr Benavidez for ventilator mgt. (2) COPD exacerbation Is this a current diagnosis for this admission?: Yes Plan: Ct with Duonebs q4h prn; Xopenex nebs 1.25 mg q8h; Solumedrol 80 mg q8h iV; Rocephin 1 g daily; Azithromycin 500 mg qd IV. (3) Hypertension Qualifiers: Hypertension type: essential hypertension Qualified Code(s): I10 - Essential (primary) hypertension Is this a current diagnosis for this admission?: Yes Plan: Ct with Metoprolol 12.5 mg q12h IV: ct with Cardizem drip. (4) Hyperlipidemia Qualifiers: Hyperlipidemia type: mixed hyperlipidemia Qualified Code(s): E78.2 - Mixed hyperlipidemia Is this a current diagnosis for this admission?: Yes Plan: Ct with Atorvastatin 40 mg qhs via NG tube. (5) Reflux esophagitis Is this a current diagnosis for this admission?: Yes Plan: Ct with Protonix 40 mg qd IV. (6) Anxiety disorder Qualifiers: Anxiety disorder type: generalized anxiety disorder Qualified Code(s): F41.1 - Generalized anxiety disorder Is this a current diagnosis for this admission?: Yes Plan: Ct with Xanax 0.5 mg q6h IV prn. (7) DVT prophylaxis Is this a current diagnosis for this admission?: Yes Plan: Ct with Lovenox 40 mg qd subcut; SCD.
[2018-02-17 20:14] LABS: ARTERIAL BLOOD BASE EXCESS -1.3 mmol/L; ARTERIAL BLOOD H2CO3 1.14 mmol/L (1.05-1.35); ARTERIAL BLOOD HCO3 23.2 mmol/L (20-24); ARTERIAL BLOOD PCO2 37.8 mmHg (35-45); ARTERIAL BLOOD PH 7.41 (7.35-7.45); ARTERIAL BLOOD PO2 109.3 mmHg (80-100); ARTERIAL BLOOD TOTAL CO2 24.3 mmol/L (21-25)
[2018-02-17 20:16] LABS: ARTERIAL BLOOD FIO2 30%
--- NOTE | 2018-02-17 21:01 | PROGRESS NOTE E ---
Progress Note NAME: SOM MCALLISTER : 1945 AGE: 72Y DATE: 02/17/2018 ROOM: 606 SUBJECTIVE: The patient is a 72-year-old female who came in with acute respiratory failure requiring invasive mechanical ventilation secondary to severe COPD exacerbation. The patient has very severe end-stage COPD and emphysema. The patient has had tracheostomy secretions, as well as a weaning trial this morning and unable to tolerate it. The patient becomes tachycardic, tachypneic, and hence becomes agitated. The patient was placed back on mechanical ventilator at the same settings. The patient has tolerated the G-tube feedings, has had no diarrhea, and no fever spikes. OBJECTIVE: GENERAL: The patient appears sedated, afebrile, not in apparent respiratory distress. VITAL SIGNS: With a temperature of 99.3 with a temperature maximum of 99.3, blood pressure is 107/52, pulse rate of 66, respiratory rate of 14, saturation is 99% on FIO2 of 30%, pressure support 10, PEEP of 5, ventilator rate 16, and a tidal volume of 400. minute ventilation is 7.1. Peak airway pressure is 29. ASSESSMENT: 1. ACUTE RESPIRATORY FAILURE REQUIRING INVASIVE MECHANICAL VENTILATION. THE PATIENT FAILED SPONTANEOUS BREATHING TRIAL THIS MORNING, NOT READY TO BE EXTUBATED. 2. SEVERE ANXIETY. 3. SEVERE FORM OF COPD/EMPHYSEMA. 4. SEVERE COPD EXACERBATION. PLAN/RECOMMENDATIONS: We will decrease the IV Solu-Medrol dose to 60 mg IV every 8 hours, continue the nebulizer treatments, continue antibiotics. We will do a spontaneous breathing trial in the morning. DICTATING PHYSICIAN: ASHLEY GONZALEZ MD,CHARISSE,MPH [id number] PHY#: [id number] 1935 ID: [id number] JOB#: [id number] ACCT: [id number] cc:ASHLEY GONZALEZ M.D. > MTDJanice
[2018-02-17] MEDS: ATORVASTATIN CALCIUM 40 MG TABLET NG SCH (22:04)
[2018-02-18] MEDS: LEVALBUTEROL HCL NEB 1.25 MG/3 ML AMPUL NEB SCH ×3 (00:02→16:15)
[2018-02-18 04:00] LABS: ABSOLUTE LYMPHOCYTES (AUTO) 0.4 10^3/uL (0.5-4.7); ABSOLUTE MONOCYTES (AUTO) 0.3 10^3/uL (0.1-1.4); ABSOLUTE NEUT (AUTO) 6.7 10^3/uL (1.7-8.2); BASOPHILS % (AUTO) 0.1 % (0-2); HEMATOCRIT 30.1 % (36.0-47.0); HEMOGLOBIN 9.9 g/dL (12.0-15.5); MEAN CORPUSCULAR HEMOGLOBIN 30.8 pg (27.0-33.4); MEAN CORPUSCULAR HGB CONC 32.9 g/dL (32.0-36.0); MEAN CORPUSCULAR VOLUME 94 fl (80-97); MONOCYTES % (AUTO) 3.6 % (3-13); PLATELET COUNT 217 10^3/uL (150-450); RED BLOOD COUNT 3.21 10^6/uL (3.72-5.28); RED CELL DISTRIBUTION WIDTH 16.3 % (11.5-14.0); SEGMENTED NEUTROPHILS % (AUTO) 91.3 % (42-78); TOTAL CELLS COUNTED % (AUTO) 100 %; WHITE BLOOD COUNT 7.4 10^3/uL (4.0-10.5)
[2018-02-18 04:04] LABS: ALANINE AMINOTRANSFERASE 83 U/L (9-52); ALBUMIN 2.6 g/dL (3.5-5.0); ALKALINE PHOSPHATASE 35 U/L (38-126); ANION GAP 5 (5-19); ASPARTATE AMINO TRANSFERASE 58 U/L (14-36); BILIRUBIN,DIRECT 0.3 mg/dL (0.0-0.4); BILIRUBIN,TOTAL 0.4 mg/dL (0.2-1.3); BLOOD UREA NITROGEN 31 mg/dL (7-20); CALCIUM 7.6 mg/dL (8.4-10.2); CARBON DIOXIDE 24 mmol/L (22-30); CHLORIDE 111 mmol/L (98-107); GLUCOSE 203 mg/dL (75-110); POTASSIUM 3.5 mmol/L (3.6-5.0); SODIUM 139.9 mmol/L (137-145); TRIGLYCERIDES 188 mg/dL (<150)
[2018-02-18] MEDS: METHYLPREDNISOLONE INJ 125 MG/2 ML SDV IV SCH ×2 (05:12→05:14)
[2018-02-18] MEDS: MIDAZOLAM HCL 50 MG/100 ML RTUINJ IV PRN (05:13)
[2018-02-18] MEDS: PROPOFOL 1,000 MG/100 ML INFUS..BTL IV PRN ×2 (05:13→19:44)
[2018-02-18] MEDS: NORMAL SALINE 1000 ML 1,000 ML IV PRN (05:15)
[2018-02-18] MEDS: ALPRAZOLAM 0.5 MG TABLET PO PRN ×2 (08:09→21:24)
--- NOTE | 2018-02-18 08:27 | RADIOLOGY REPORT (SQ) ---
EXAM DESCRIPTION: CHEST SINGLE VIEW COMPLETED DATE/TIME: 02/18/2018 6:16 am REASON FOR STUDY: on ventilator COMPARISON: 02/17/2018. NUMBER OF VIEWS: One view. TECHNIQUE: Single frontal radiographic image of the chest acquired. LIMITATIONS: None. FINDINGS: LUNGS AND PLEURA: Clear. No pneumothorax. COPD. MEDIASTINUM AND HEART: Stable heart size and mediastinal structures. SUPPORT DEVICES: Appropriate position without significant change. BONY STRUCTURES: No acute findings. HARDWARE: None. OTHER: No other significant finding. IMPRESSION: STABLE APPEARANCE OF THE CHEST. SUPPORT DEVICES UNCHANGED. Reading location - IP/workstation name: [email or web address]
[2018-02-18] MEDS ORDERED: ALPRAZOLAM 0.5 MG TABLET PO SCH (09:00)
[2018-02-18] MEDS ORDERED: ALBUTEROL SULFATE 0.083% NEB 2.5 MG/3 ML AMPUL NEB PRN (09:22)
[2018-02-18] MEDS ORDERED: IPRATROPIUM BROMIDE 0.02% NEB 0.5 MG/2.5 ML AMPUL NEB SCH (09:30)
[2018-02-18] MEDS ORDERED: BUDESONIDE NEB 0.5 MG/2 ML AMPUL NEB SCH (09:45)
[2018-02-18] MEDS ORDERED: AZITHROMYCIN 200 MG/5 ML SUSP 30 ML NG SCH (10:00)
[2018-02-18] MEDS: ASPIRIN 81 MG TABLET, CHEWABLE NG SCH (10:36)
[2018-02-18] MEDS: METOPROLOL TARTRATE 25 MG TABLET NG SCH ×2 (10:36→21:58)
[2018-02-18] MEDS: CEFTRIAXONE SODIUM 1,000 MG in NORMAL SALINE 50 ML IV SCH (10:38)
[2018-02-18] MEDS: FUROSEMIDE INJ/PF 20 MG/2 ML SDV IV SCH (10:38)
[2018-02-18] MEDS: ENOXAPARIN SODIUM INJ 40 MG/0.4 ML DISP.SYRIN SUBCUT SCH (10:38)
[2018-02-18] MEDS: PANTOPRAZOLE SODIUM 40 MG VIAL IV SCH (10:38)
[2018-02-18 11:14] LABS: ANION GAP 6 (5-19); BLOOD UREA NITROGEN 32 mg/dL (7-20); CALCIUM 7.8 mg/dL (8.4-10.2); CARBON DIOXIDE 25 mmol/L (22-30); CHLORIDE 111 mmol/L (98-107); GLUCOSE 192 mg/dL (75-110); POTASSIUM 3.7 mmol/L (3.6-5.0); SODIUM 142.1 mmol/L (137-145)
[2018-02-18 11:25] LABS: CREATINE KINASE MB 1.44 ng/mL (<4.55); TROPONIN I 0.022 ng/mL
[2018-02-18] MEDS: DILTIAZEM HCL 30 MG TABLET NG SCH ×3 (12:57→23:43)
[2018-02-18] MEDS ORDERED: METHYLPREDNISOLONE INJ 40 MG/1 ML SDV IV SCH (14:00)
--- NOTE | 2018-02-18 16:03 | PDOC PROGRESS REPORT ---
Subjective Progress Note for:: 02/18/18 Subjective:: Pt failed weaning trial today and went into SVT within 5 minutes and was stopped. Pt still on mech. ventilation at FIO2 of 30%, Tidal volume of 400, Vent rate of 16, PEEP of 5. She is still sedated with Propofol at 20 mcg/kg/min and Versed at 2 mg/hr. Repeat chest xray did not show any infiltrate. We will keep monitoring her at ICU and f/u with Dr Benavidez for Ventilator mgt. Reason For Visit: COPD EXACERBATION Physical Exam Vital Signs: Temp Pulse Resp BP Pulse Ox 98.4 F 74 12 87/49 L 97 02/18/18 12:28 02/18/18 12:00 02/18/18 12:28 02/18/18 12:28 02/18/18 12:28 Pulse Oximeter Continuous Start: 02/12/18 13: 38 Freq: RTQ4 Status: Complete Document 02/12/18 13:00 [facility] (Rec: 02/12/18 13:40 [facility] [id number]) Pulse Oximetry Assessment Oxygen Saturation (92-100) 97 Oxygen Delivery Method Bi-pap Fraction of Inspired Oxygen (FIO2) 45 Equipment Usage Initial Set Up Continuous Pulse Oximeter 24 Hour Charge Charge Now Continuous SpO2 Machine # n2 Pulse Oximeter Continuous Start: 02/12/18 14: 27 Freq: RTQ4 Status: Complete Document 02/15/18 17:24 [facility] (Rec: 02/15/18 17:24 JDR [email or web address]) Pulse Oximetry Assessment Equipment Usage Equipment Discontinued Continuous SpO2 Machine # 2 Intake & Output 02/17/18 02/18/18 02/19/18 06:59 06:59 06:59 Intake Total 4060 2187 Output Total 345 1070 440 Balance 3715 1117 -440 Weight 64.8 kg 66.9 kg General appearance: PRESENT: no acute distress, well-developed, well-nourished Head exam: PRESENT: atraumatic, normocephalic Mouth exam: PRESENT: neck supple Neck exam: PRESENT: full ROM Respiratory exam: PRESENT: decreased breath sounds, symmetrical Cardiovascular exam: PRESENT: +S1, +S2 Pulses: PRESENT: +2 pedal pulses bilateral Rectal exam: PRESENT: deferred Additional comments: Pt on mech. ventilator Results Laboratory Results: 02/18/18 03:35 02/18/18 10:30 02/17/18 02/17/18 02/17/18 16:10 16:10 19:45 WBC 11.9 H RBC 3.35 L Hgb 10.2 L Hct 31.8 L MCV 95 MCH 30.6 MCHC 32.2 RDW 16.3 H Plt Count 253 Seg Neutrophils % Lymphocytes % Monocytes % Eosinophils % Basophils % Absolute Neutrophils Absolute Lymphocytes Absolute Monocytes Absolute Eosinophils Absolute Basophils Carbonic Acid 1.14 HCO3/H2CO3 Ratio 20:1 ABG pH 7.41 ABG pCO2 37.8 ABG pO2 109.3 H ABG HCO3 23.2 ABG O2 Saturation 98.0 ABG Base Excess -1.3 FiO2 30% Sodium 140.1 Potassium 3.9 Chloride 110 H Carbon Dioxide 24 Anion Gap 6 BUN 30 H Creatinine 0.77 Est GFR ( Amer) > 60 Est GFR (Non-Af Amer) > 60 Glucose 162 H Calcium 8.2 L Magnesium Total Bilirubin 0.2 AST 33 ALT 50 Alkaline Phosphatase 32 L Total Protein 5.6 L Albumin 2.9 L Triglycerides 02/18/18 02/18/18 02/18/18 03:35 03:35 10:30 WBC 7.4 RBC 3.21 L Hgb 9.9 L Hct 30.1 L MCV 94 MCH 30.8 MCHC 32.9 RDW 16.3 H Plt Count 217 Seg Neutrophils % 91.3 H Lymphocytes % 5.0 L Monocytes % 3.6 Eosinophils % 0.0 Basophils % 0.1 Absolute Neutrophils 6.7 Absolute Lymphocytes 0.4 L Absolute Monocytes 0.3 Absolute Eosinophils 0.0 Absolute Basophils 0.0 Carbonic Acid HCO3/H2CO3 Ratio ABG pH ABG pCO2 ABG pO2 ABG HCO3 ABG O2 Saturation ABG Base Excess FiO2 Sodium 139.9 142.1 Potassium 3.5 L 3.7 Chloride 111 H 111 H Carbon Dioxide 24 25 Anion Gap 5 6 BUN 31 H 32 H Creatinine 0.66 0.66 Est GFR ( Amer) > 60 > 60 Est GFR (Non-Af Amer) > 60 > 60 Glucose 203 H 192 H Calcium 7.6 L 7.8 L Magnesium 2.1 Total Bilirubin 0.4 AST 58 H ALT 83 H Alkaline Phosphatase 35 L Total Protein 5.0 L Albumin 2.6 L Triglycerides 188 H 02/15/18 18:00 Sputum Gram Stain - Final 02/17/18 02/18/18 02/18/18 05:15 10:30 10:30 Creatine Kinase 58 CK-MB (CK-2) 1.44 Troponin I 0.022 NT-Pro-B Natriuret Pep 403 Impressions: Chest/Abdomen CTA 02/12/18 00:00 IMPRESSION: 1. There is no evidence of pulmonary emboli. 2. Extensive pulmonary emphysema. 3. Cholelithiasis. Head CT 02/15/18 00:00 IMPRESSION: Very limited negative study EVIDENCE OF ACUTE STROKE: NO. KUB X-Ray 02/15/18 00:00 IMPRESSION: Nasogastric tube tip and side port in the stomach Chest X-Ray 02/18/18 05:00 IMPRESSION: STABLE APPEARANCE OF THE CHEST. SUPPORT DEVICES UNCHANGED. Assessment & Plan - Diagnosis (1) Acute and chronic respiratory failure Qualifiers: Respiratory failure complication: hypoxia and hypercapnia Qualified Code(s) : J96.21 - Acute and chronic respiratory failure with hypoxia; J96.22 - Acute and chronic respiratory failure with hypercapnia; J96.22 - Acute and chronic respiratory failure with hypercapnia; J96.22 - Acute and chronic respiratory failure with hypercapnia Is this a current diagnosis for this admission?: Yes Plan: Ct with [facility]. ventilation. Ct with IV fluids normal saline at 75 cc/hr; Ct with Lasix 20 mg daily IV; strict input/output chart. 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 (2) COPD exacerbation Is this a current diagnosis for this admission?: Yes Plan: Ct with Duonebs q4h prn; Xopenex nebs 1.25 mg q8h; Solumedrol 60 mg q8h IV; Rocephin 1 g daily. (3) Hypertension Qualifiers: Hypertension type: essential hypertension Qualified Code(s): I10 - Essential (primary) hypertension Is this a current diagnosis for this admission?: Yes Plan: Ct with Metoprolol 12.5 mg q12h IV: Hold Cardiizem 30 mg q6h via NG tube for now due to hypotension. (4) Hyperlipidemia Qualifiers: Hyperlipidemia type: mixed hyperlipidemia Qualified Code(s): E78.2 - Mixed hyperlipidemia Is this a current diagnosis for this admission?: Yes Plan: Ct with Atorvastatin 40 mg qhs via NG tube. (5) Reflux esophagitis Is this a current diagnosis for this admission?: Yes Plan: Ct with Protonix 40 mg qd IV. (6) Anxiety disorder Qualifiers: Anxiety disorder type: generalized anxiety disorder Qualified Code(s): F41.1 - Generalized anxiety disorder Is this a current diagnosis for this admission?: Yes Plan: Ct with Xanax 0.5 mg q6h IV prn. (7) DVT prophylaxis Is this a current diagnosis for this admission?: Yes Plan: Ct with Lovenox 40 mg qd subcut; SCD.
[2018-02-18] MEDS: ATORVASTATIN CALCIUM 40 MG TABLET NG SCH (21:07)
[2018-02-18] MEDS: METHYLPREDNISOLONE INJ 40 MG/1 ML SDV IV SCH (21:08)
[2018-02-18] MEDS ORDERED: METHYLPREDNISOLONE INJ 125 MG/2 ML SDV IV SCH (22:00)
[2018-02-19] MEDS: LEVALBUTEROL HCL NEB 1.25 MG/3 ML AMPUL NEB SCH ×4 (01:09→23:54)
[2018-02-19] MEDS: PROPOFOL 1,000 MG/100 ML INFUS..BTL IV PRN ×3 (01:24→14:59)
[2018-02-19] MEDS: NORMAL SALINE 1000 ML 1,000 ML IV PRN ×2 (03:35→22:04)
[2018-02-19 03:40] LABS: HEMATOCRIT 30.6 % (36.0-47.0); HEMOGLOBIN 10.1 g/dL (12.0-15.5); MEAN CORPUSCULAR HGB CONC 32.9 g/dL (32.0-36.0); MEAN CORPUSCULAR VOLUME 94 fl (80-97); PLATELET COUNT 202 10^3/uL (150-450); RED BLOOD COUNT 3.25 10^6/uL (3.72-5.28); RED CELL DISTRIBUTION WIDTH 16.3 % (11.5-14.0); WHITE BLOOD COUNT 10.6 10^3/uL (4.0-10.5)
[2018-02-19 03:52] LABS: ALANINE AMINOTRANSFERASE 127 U/L (9-52); ALBUMIN 2.6 g/dL (3.5-5.0); ALKALINE PHOSPHATASE 36 U/L (38-126); ANION GAP 5 (5-19); ASPARTATE AMINO TRANSFERASE 72 U/L (14-36); BILIRUBIN,DIRECT 0.3 mg/dL (0.0-0.4); BILIRUBIN,TOTAL 0.4 mg/dL (0.2-1.3); BLOOD UREA NITROGEN 38 mg/dL (7-20); CALCIUM 7.7 mg/dL (8.4-10.2); CARBON DIOXIDE 24 mmol/L (22-30); CHLORIDE 111 mmol/L (98-107); GLUCOSE 201 mg/dL (75-110); POTASSIUM 3.7 mmol/L (3.6-5.0); TOTAL PROTEIN 5.1 g/dL (6.3-8.2)
[2018-02-19 03:56] LABS: ABSOLUTE LYMPHOCYTES# (MANUAL) 0.7 10^3/uL (0.5-4.7); ABSOLUTE MONOCYTES # (MANUAL) 0.5 10^3/uL (0.1-1.4); ABSOLUTE NEUTROPHILS# (MANUAL) 9.3 10^3/uL (1.7-8.2); BASOPHILS % (MANUAL) 0 % (0-2); EOSINOPHILS % (MANUAL) 0 % (0-6); LYMPHOCYTES % (MANUAL) 7 % (13-45); MONOCYTES % (MANUAL) 5 % (3-13); SEGMENTED NEUTROPHILS % (MAN) 88 % (42-78); TOTAL CELLS COUNTED 100
[2018-02-19 03:57] LABS: ANISOCYTOSIS 1+; OVALOCYTES 1+; PLATELET CLUMPS PRESENT; PLATELET COMMENT ADEQUATE; PLATELET LARGE PRESENT; POIKILOCYTOSIS 1+; SCHISTOCYTES 1+; TOXIC GRANULATION SLIGHT; TOXIC VACUOLATION PRESENT
[2018-02-19] MEDS ORDERED: ADENOSINE INJ/PF 6 MG/2 ML SDV IV ONE (09:09)
[2018-02-19] MEDS ORDERED: DIGOXIN INJ 0.5 MG/2 ML AMPULE ONE (09:20)
[2018-02-19] MEDS: PANTOPRAZOLE SODIUM 40 MG VIAL IV SCH (09:58)
[2018-02-19] MEDS: FUROSEMIDE INJ/PF 20 MG/2 ML SDV IV SCH (09:58)
[2018-02-19] MEDS: CEFTRIAXONE SODIUM 1,000 MG in NORMAL SALINE 50 ML IV SCH (09:58)
[2018-02-19] MEDS: ASPIRIN 81 MG TABLET, CHEWABLE NG SCH (09:58)
[2018-02-19] MEDS: METOPROLOL TARTRATE 25 MG TABLET NG SCH ×2 (09:59→22:03)
[2018-02-19] MEDS: ENOXAPARIN SODIUM INJ 40 MG/0.4 ML DISP.SYRIN SUBCUT SCH (09:59)
[2018-02-19] MEDS: ALPRAZOLAM 0.5 MG TABLET PO PRN (10:13)
[2018-02-19] MEDS: METHYLPREDNISOLONE INJ 40 MG/1 ML SDV IV SCH (10:14)
[2018-02-19] MEDS: MIDAZOLAM HCL 50 MG/100 ML RTUINJ IV PRN (10:19)
[2018-02-19] MEDS: MORPHINE SULFATE 10 MG/ML INJ IV PRN (10:20)
--- NOTE | 2018-02-19 10:59 | PROGRESS NOTE E ---
Progress Note NAME: SOM MCALLISTER : 1945 AGE: 72Y DATE: 02/18/2018 ROOM: 606 SUBJECTIVE: Patient is a 72-year-old female who came in with acute on chronic respiratory failure requiring invasive mechanical ventilation. Patient had a spontaneous breathing trial this morning. Patient went into supraventricular tachycardia in about an hour. Patient was placed back on SIMV rate of 16 and with ventilation resumed, the SVT resolved spontaneously. Scanty endotracheal tube secretions. No fever lasting for hours. No nausea, vomiting, diarrhea. OBJECTIVE: GENERAL: Patient appeared sedated, afebrile, not in apparent respiratory distress. VITAL SIGNS: Temperature of 98.6 with T-max of 98.6; with a blood pressure of 118/61, heart rate of 88, and respiratory rate of 16, saturation is 96% on FiO2 of 30%, SIMV rate of 16, tidal volume of 400, pressure support of 10, PEEP of 5,minute ventilation of 7, and peak airway pressure is 34. EYES: No jaundice or pallor. EARS, NOSE AND THROAT: No ear drainage noted. No nasal discharge. CHEST AND LUNGS: No wheezing. No rhonchi noted. No coarse crackles. CARDIOVASCULAR: S1, S2 distinct. Normal rhythm, regular rhythm. ABDOMEN: Flabby. Positive bowel sounds. Soft, nondistended, nontender. EXTREMITIES: No joint swelling. No cellulitis. LABORATORY DATA: A CBC done today showed white count of 7.4; hemoglobin is 9.9; hematocrit is 30.1; platelet count 217. Chemistry done today showed sodium is 142, potassium 3.7, chloride is 111, BUN 32, creatinine 0.66, glucose IMAGING DATA: A chest x-ray today showed the absence of pneumothorax. No new infiltrates noted. Endotracheal tube is in place. ASSESSMENT: 1. ACUTE ON CHRONIC RESPIRATORY FAILURE REQUIRING INVASIVE MECHANICAL VENTILATION. The patient failed spontaneous breathing trial this morning. 2. SEVERE ANXIETY. 3. SEVERE COPD, CURRENTLY NOT IN APPARENT BRONCHOSPASM. PLAN AND RECOMMENDATIONS: 1. We will do a spontaneous breathing trial again tomorrow once fully awake after sedation is taken off. 2. Continue nebulizer treatment. 3. Continue prednisone 60 mg q. 8. 4. Continue NG tube feedings. 5. We will start the patient on Xanax 0.5 mg every 6 hours around the clock. DICTATING PHYSICIAN: AHSLEY GONZALEZ MD,CHARISSE,MPH [id number] 2045 PHY#: [id number] 1934 ID: [id number] JOB#: [id number] ACCT: [id number] cc: > MTDD
[2018-02-19] MEDS: DILTIAZEM HCL 30 MG TABLET NG SCH ×3 (12:00→17:53)
[2018-02-19] MEDS: METHYLPREDNISOLONE INJ 125 MG/2 ML SDV IV SCH ×2 (14:50→22:02)
--- NOTE | 2018-02-19 16:23 | PDOC PROGRESS REPORT ---
Subjective Progress Note for:: 02/19/18 Subjective:: She had failed weaning trial today after 20 minutes and she developed tachycardia and Dr Weiss was consulted who gave Digoxin 0.5 mg IV and Adenosine [address] Benavidez also added Morphine 1 Mg q2h IV prn. Her heart rate is back to normal and she is on back on sedation with Propofol at 20mcg/kg/min and Versed at 2 mg/hr; TV of 400,FiO2 of 30%, Rate of 16; PEEP of 5. She had 1 bowel movement today and is making adequate urine- made 400 mls in 2hours after Lasix 20 Mg IV, though her urine appeared pinkish, but is clearing presently. Reason For Visit: COPD EXACERBATION Physical Exam Vital Signs: Temp Pulse Resp BP Pulse Ox 98.8 F 78 18 96/49 L 100 02/19/18 16:00 02/19/18 16:00 02/19/18 16:00 02/19/18 16:00 02/19/18 16:00 Pulse Oximeter Continuous Start: 02/12/18 13: 38 Freq: RTQ4 Status: Complete Document 02/12/18 13:00 [facility] (Rec: 02/12/18 13:40 [facility] [email or web address]) Pulse Oximetry Assessment Oxygen Saturation (92-100) 97 Oxygen Delivery Method Bi-pap Fraction of Inspired Oxygen (FIO2) 45 Equipment Usage Initial Set Up Continuous Pulse Oximeter 24 Hour Charge Charge Now Continuous SpO2 Machine # n2 Pulse Oximeter Continuous Start: 02/12/18 14: 27 Freq: RTQ4 Status: Complete Document 02/15/18 17:24 [facility] (Rec: 02/15/18 17:24 J [email or web address]) Pulse Oximetry Assessment Equipment Usage Equipment Discontinued Continuous SpO2 Machine # 2 Intake & Output 02/18/18 02/19/18 02/20/18 06:59 06:59 06:59 Intake Total 2187 1633 247 Output Total 1070 970 265 Balance 1117 663 -18 Weight 66.9 kg 67.3 kg General appearance: PRESENT: no acute distress, well-developed, well-nourished Head exam: PRESENT: atraumatic, normocephalic Mouth exam: PRESENT: neck supple, tongue midline Respiratory exam: PRESENT: decreased breath sounds, symmetrical Cardiovascular exam: PRESENT: +S1, +S2 Pulses: PRESENT: +1 pedal pulses bilateral GI/Abdominal exam: PRESENT: normal bowel sounds Rectal exam: PRESENT: deferred [facility] Results Laboratory Results: 02/19/18 03:25 02/19/18 03:25 02/19/18 02/19/18 03:25 03:25 WBC 10.6 H RBC 3.25 L Hgb 10.1 L Hct 30.6 L MCV 94 MCH 31.0 MCHC 32.9 RDW 16.3 H Plt Count 202 Seg Neutrophils % Not Reportable Lymphocytes % Not Reportable Monocytes % Not Reportable Eosinophils % Not Reportable Basophils % Not Reportable Absolute Neutrophils Not Reportable Absolute Lymphocytes Not Reportable Absolute Monocytes Not Reportable Absolute Eosinophils Not Reportable Absolute Basophils Not Reportable Sodium 140.0 Potassium 3.7 Chloride 111 H Carbon Dioxide 24 Anion Gap 5 BUN 38 H Creatinine 0.63 Est GFR ( Amer) > 60 Est GFR (Non-Af Amer) > 60 Glucose 201 H Calcium 7.7 L Total Bilirubin 0.4 AST 72 H ALT 127 H Alkaline Phosphatase 36 L Total Protein 5.1 L Albumin 2.6 L 02/15/18 18:00 Sputum Gram Stain - Final 02/15/18 18:00 Sputum Sputum Culture - Final Yeast, Not Rocio Albicans Reduced Normal Anne 02/17/18 02/18/18 02/18/18 05:15 10:30 10:30 Creatine Kinase 58 CK-MB (CK-2) 1.44 Troponin I 0.022 NT-Pro-B Natriuret Pep 403 Impressions: Chest/Abdomen CTA 02/12/18 00:00 IMPRESSION: 1. There is no evidence of pulmonary emboli. 2. Extensive pulmonary emphysema. 3. Cholelithiasis. Head CT 02/15/18 00:00 IMPRESSION: Very limited negative study EVIDENCE OF ACUTE STROKE: NO. KUB X-Ray 02/15/18 00:00 IMPRESSION: Nasogastric tube tip and side port in the stomach Chest X-Ray 02/18/18 05:00 IMPRESSION: STABLE APPEARANCE OF THE CHEST. SUPPORT DEVICES UNCHANGED. Assessment & Plan - Diagnosis (1) Acute and chronic respiratory failure Qualifiers: Respiratory failure complication: hypoxia and hypercapnia Qualified Code(s) : J96.21 - Acute and chronic respiratory failure with hypoxia; J96.22 - Acute and chronic respiratory failure with hypercapnia; J96.22 - Acute and chronic respiratory failure with hypercapnia; J96.22 - Acute and chronic respiratory failure with hypercapnia Is this a current diagnosis for this admission?: Yes Plan: Ct with [facility]. ventilation. Ct with IV fluids normal saline at 75 cc/hr; Ct with Lasix 20 mg daily IV; Morphine 1 mg q2h IV prn; strict input/output chart. 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 (2) COPD exacerbation Is this a current diagnosis for this admission?: Yes Plan: Ct with Duonebs q4h prn; Xopenex nebs 1.25 mg q8h; Solumedrol 60 mg q8h IV; Rocephin 1 g daily. (3) Hypertension Qualifiers: Hypertension type: essential hypertension Qualified Code(s): I10 - Essential (primary) hypertension Is this a current diagnosis for this admission?: Yes Plan: Ct with Metoprolol 12.5 mg q12h IV: Hold Cardiizem 30 mg q6h via NG tube for now due to hypotension. (4) Hyperlipidemia Qualifiers: Hyperlipidemia type: mixed hyperlipidemia Qualified Code(s): E78.2 - Mixed hyperlipidemia Is this a current diagnosis for this admission?: Yes Plan: Ct with Atorvastatin 40 mg qhs via NG tube. (5) Reflux esophagitis Is this a current diagnosis for this admission?: Yes Plan: Ct with Protonix 40 mg qd IV. (6) Anxiety disorder Qualifiers: Anxiety disorder type: generalized anxiety disorder Qualified Code(s): F41.1 - Generalized anxiety disorder Is this a current diagnosis for this admission?: Yes Plan: Ct with Xanax 0.5 mg q6h IV prn. (7) DVT prophylaxis Is this a current diagnosis for this admission?: Yes Plan: Ct with Lovenox 40 mg qd subcut; SCD.
[2018-02-19] MEDS: PAROXETINE HCL 20 MG TABLET PO SCH (22:02)
[2018-02-19] MEDS: ATORVASTATIN CALCIUM 40 MG TABLET NG SCH (22:03)
[2018-02-19] MEDS: ALPRAZOLAM 0.5 MG TABLET PO SCH (23:38)
--- NOTE | 2018-02-19 23:43 | PDOC CONSULTATION ---
Consultation Consult Date: 02/19/18 Attending physician:: MOHAMUD MARSH Consult reason:: SVT History of Present Illness Admission Date/PCP: 02/12/18 08:29 MOHAMUD MARSH Patient complains of: Currently intubated and sedated. Noted to have runs of narrow complex tachycardia. History of Present Illness: SOM MCALLISTER is a 72 year old female who has history of chronic respiratory failure on home oxygen 24 hours a day. She has severe COPD. Patient apparently has been complaining of generalized weakness and swollen feet for about 3 month along with his cough and shortness of breath. She actually fell asleep one time and had her nose on the table and has significant erythema and large scab on her nasal bridge. She is severely short of breath and does not seem to finish a complete sentence during my evaluation. She is very poor historian as well as her who was present during the examination. This history obtained by the hospitalist on admission was reviewed. Subsequently patient was moved to the unit, was intubated and placed on ventilator. Patient also getting oxygen supplementation. This morning patient was noted to have narrow complex tachycardia with transient hypotension. Patient was given IV adenosine 6 mg following which she converted to sinus rhythm. Her blood pressure was noted to improve. Subsequently patient was placed on metoprolol succinate and also Cardizem. Past Medical History Cardiac Medical History: Denies: Coronary Artery Disease, Myocardial Infarction, Hypertension Pulmonary Medical History: Reports: Asthma, Chronic Obstructive Pulmonary Disease (COPD) Denies: Bronchitis, Pneumonia, Tuberculosis Neurological Medical History: Denies: Seizures Musculoskeltal Medical History: Denies: Arthritis Psychiatric Medical History: Denies: Depression Hematology: Denies: Anemia Past Surgical History Past Surgical History: Reports: Hysterectomy Denies: Pacemaker Social History Information Source: [facility] Records Smoking Status: Current Some Day Smoker Cigarettes Packs Per Day: 0.5 Cigars Per Day: 0 Pipes Per Day: 0 Number of Years Smokin Last Time Smoked: 02/11/2018 Frequency of Alcohol Use: None Hx Recreational Drug Use: No Hx Prescription Drug Abuse: No - Advance Directive Resuscitation Status: Full Code Surrogate healthcare decision maker:: Patient is the surrogate decision-maker Family History Family History: COPD Parental Family History Reviewed: Yes Children Family History Reviewed: Yes Sibling(s) Family History Reviewed.: Yes Medication/Allergy Home Medications: Albuterol Sulfate [Ventolin HFA MDI 18 GM] 2 puff IH Q4H 02/12/18 Alprazolam [Xanax 0.5 mg Tablet] 0.5 mg PO TID 02/12/18 Aspirin [Aspirin 81 mg Chewable Tablet] 81 mg PO DAILY 02/12/18 Atorvastatin Calcium [Lipitor 40 mg Tablet] 40 mg PO QHS 02/12/18 Famotidine [Pepcid 20 mg Tablet] 20 mg PO BID 02/12/18 Fluticasone/Salmeterol [Advair 500-50 Diskus 28 Dose] 1 inh IH Q12H 02/12/18 Metoprolol Tartrate [Lopressor 25 mg Tablet] 25 mg PO Q12 02/12/18 Tiotropium Verdi [Spiriva Respimat] 2 puff IH DAILY 02/12/18 Allergies/Adverse Reactions: Sulfa (Sulfonamide Antibiotics) Allergy (Severe, Verified 02/12/18 13:48) unsure amoxicillin Allergy (Verified 02/12/18 13:48) codeine [Codeine] Allergy (Verified 02/12/18 13:48) Review of Systems ROS unobtainable: Due to endotracheal tube Physical Exam Vital Signs: Temp Pulse Resp BP Pulse Ox 98.8 F 80 16 99/51 L 99 02/19/18 23:25 02/19/18 20:00 02/19/18 17:00 02/19/18 16:59 02/19/18 20:00 Pulse Oximeter Continuous Start: 02/12/18 13: 38 Freq: RTQ4 Status: Complete Document 02/12/18 13:00 [facility] (Rec: 02/12/18 13:40 [facility] [id number]) Pulse Oximetry Assessment Oxygen Saturation (92-100) 97 Oxygen Delivery Method Bi-pap Fraction of Inspired Oxygen (FIO2) 45 Equipment Usage Initial Set Up Continuous Pulse Oximeter 24 Hour Charge Charge Now Continuous SpO2 Machine # [id number] Pulse Oximeter Continuous Start: 02/12/18 14: 27 Freq: RTQ4 Status: Complete Document 02/15/18 17:24 J (Rec: 02/15/18 17:24 [facility] [email or web address]) Pulse Oximetry Assessment Equipment Usage Equipment Discontinued Continuous SpO2 Machine # 2 Intake & Output 02/18/18 02/19/18 02/20/18 06:59 06:59 06:59 Intake Total 2187 1633 1421 Output Total 1070 1005 845 Balance 1117 628 576 Weight 66.9 kg 67.3 kg Exam: GENERAL: well-nourished and in no acute distress. Patient is intubated and sedated. Orientation cannot be checked HEAD: Atraumatic, normocephalic. EYES: Pupils equal round and reactive to light, extraocular movements could not be checked, sclera anicteric, conjunctiva are normal. ENT: TMs normal, nares patent, oropharynx clear without exudates. Moist mucous membranes. No oral ulcerations or bleeding gums noted NECK: supple without lymphadenopathy or JVD. Trachea is central. No cervical or axillary lymphadenopathy noted. Carotids are 2+ LUNGS: Breath sounds mostly clear to auscultation patient is noted to have bibasal crackles at the extreme bases. Scattered wheezing noted. CHEST: Palpation of the chest wall shows no significant chest wall tenderness or abnormalities. HEART: [place] CASH POSTING REPRESENTATIVE, No PSH, 2/6 DAMASO aortic area, 1/6 maguire systolic murmur mitral area , no rubs or gallops. ABDOMEN: Soft, no significant tenderness appreciated, normoactive bowel sounds. No guarding, no rebound. No rigidity noted . No masses appreciated. EXTREMITIES: Pedal pulses are 1-2+, no calf tenderness noted, 1+ pedal edema noted. No clubbing or cyanosis. NEUROLOGICAL: The patient cannot participate in the neurological exam but no facial asymmetry noted. Extremities slightly hypotonic PSYCH: This cannot be evaluated. Patient cannot participate. SKIN: No significant ecchymosis, rash, or signs of pruritus noted. MUSCULOSKELETAL EXAM: No significant joint swelling noted. Patient cannot participate in musculoskeletal exam Results Laboratory Results: 02/19/18 03:25 02/19/18 03:25 02/19/18 02/19/18 03:25 03:25 WBC 10.6 H RBC 3.25 L Hgb 10.1 L Hct 30.6 L MCV 94 MCH 31.0 MCHC 32.9 RDW 16.3 H Plt Count 202 Seg Neutrophils % Not Reportable Lymphocytes % Not Reportable Monocytes % Not Reportable Eosinophils % Not Reportable Basophils % Not Reportable Absolute Neutrophils Not Reportable Absolute Lymphocytes Not Reportable Absolute Monocytes Not Reportable Absolute Eosinophils Not Reportable Absolute Basophils Not Reportable Sodium 140.0 Potassium 3.7 Chloride 111 H Carbon Dioxide 24 Anion Gap 5 BUN 38 H Creatinine 0.63 Est GFR ( Amer) > 60 Est GFR (Non-Af Amer) > 60 Glucose 201 H Calcium 7.7 L Total Bilirubin 0.4 AST 72 H ALT 127 H Alkaline Phosphatase 36 L Total Protein 5.1 L Albumin 2.6 L 02/17/18 02/18/18 02/18/18 05:15 10:30 10:30 Creatine Kinase 58 CK-MB (CK-2) 1.44 Troponin I 0.022 NT-Pro-B Natriuret Pep 403 EKG Comments: EKG on 02 14 shows narrow complex tachycardia. Impressions: Chest/Abdomen CTA 02/12/18 00:00 IMPRESSION: 1. There is no evidence of pulmonary emboli. 2. Extensive pulmonary emphysema. 3. Cholelithiasis. Head CT 02/15/18 00:00 IMPRESSION: Very limited negative study EVIDENCE OF ACUTE STROKE: NO. KUB X-Ray 02/15/18 00:00 IMPRESSION: Nasogastric tube tip and side port in the stomach Chest X-Ray 02/18/18 05:00 IMPRESSION: STABLE APPEARANCE OF THE CHEST. SUPPORT DEVICES UNCHANGED. Assessment & Plan - Diagnosis (1) Supraventricular tachycardia Is this a current diagnosis for this admission?: Yes (2) Acute and chronic respiratory failure Qualifiers: Respiratory failure complication: hypoxia and hypercapnia Qualified Code(s) : J96.21 - Acute and chronic respiratory failure with hypoxia; J96.22 - Acute and chronic respiratory failure with hypercapnia; J96.22 - Acute and chronic respiratory failure with hypercapnia; J96.22 - Acute and chronic respiratory failure with hypercapnia Is this a current diagnosis for this admission?: Yes (3) COPD exacerbation Is this a current diagnosis for this admission?: Yes (4) Hypertension Qualifiers: Hypertension type: essential hypertension Qualified Code(s): I10 - Essential (primary) hypertension Is this a current diagnosis for this admission?: Yes - Notes Notes: Patient was noted to be in SVT. This responded to IV adenosine. Feel that response to IV adenosine suggest AV reentrant arrhythmias. Agree with Cardizem therapy. Since patient blood pressure is on the low side also gave 0.5 mg of digoxin and will start patient on maintenance digoxin. If needed, consider adding multaq or amiodarone therapy. 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 This is because the narrow complex tachycardia responded to IV adenosine. Recommend Cardizem therapy since patient has COPD. Could also add digoxin. Acute on chronic respiratory failure: Patient has underlying severe COPD. Continue with mechanical ventilation and oxygenation. Hypertension: Currently blood pressure under reasonable control in fact was on low side this morning possibly related to narrow complex tachycardia. General debility; patient has been in the unit. Overall prognosis is guarded. Will review previous records. If no recent echocardiogram performed then will order one. - Time Time Spent: 30 to 50 Minutes - CODE STATUS was discussed, patient remains full code. Surrogate decision-maker unchanged. Multiple medical problems were addressed. More than 50% of the time spent coordinating care, discussing management plans with involved caregivers. Management plans discussed with involved personnels. Medical decision making was of moderate to high complexity , patient's has multiple comorbidities. Previous records reviewed. No echocardiogram report available. We will therefore order an 2D echo in a.m. Medications reviewed and adjusted accordingly: Yes
--- NOTE | 2018-02-20 00:20 | PROGRESS NOTE E ---
Progress Note NAME: SOM MCALLISTER : 1945 AGE: 72Y DATE: 02/19/2018 ROOM: 606 SUBJECTIVE: The patient is a 72-year-old female who came in with acute on chronic respiratory failure requiring invasive mechanical ventilation. The patient had sedation vacation this morning with resulted to severe tachyarrhythmia which resulted to an SVT with a heart rate of 150-160 beats per minute. Spontaneous breathing trial was not performed. The patient was placed back on IV sedation using propofol and Versed. Self Rising Flour Mixer had seen patient this morning and patient was given adenosine which seemed to convert patient to sinus rhythm. Patient was tachycardic for about an hour or two after IV adenosine, per patient's nurse. The patient was also started with IV morphine p.r.n. for pain. There were no fever spikes in the last 24-48 hours. There was no vomiting or diarrhea. The patient tolerated G-tube feeding over 13 mL/hr. The patient has scanty endotracheal tube secretions. OBJECTIVE: GENERAL: The patient appeared sedated, afebrile, not in apparent respiratory distress. VITAL SIGNS: Temperature of 99.3 with a T-max of 99.3, heart rate of 85, blood pressure is 99/51, respiratory rate is 16, saturation is 99% on 30% FiO2, SIMV rate of 16, tidal volume of 400, pressure support of 10, PEEP of 5, mid ventilation 6.4, peak airway pressure is 26. EYES: No jaundice or pallor. EARS, NOSE, AND THROAT: No ear drainage. No nasal discharge. HEAD AND NECK: No scalp swelling, no neck tenderness. CHEST AND LUNGS: No wheezing, no rhonchi, no coarse crackles. CARDIOVASCULAR: S1, S2 distinct. Normal rate and regular rhythm. ABDOMEN: Flabby, positive bowel sounds, soft, nondistended, nontender. LABORATORY DATA: CBC done today shows a white count of 10.6, hemoglobin is 10.1, hematocrit is 30.6, platelets is 202. Chemistry done today shows sodium is 140, potassium is 3.7, chloride 111, CO2 is 34, BUN is 38, creatinine is 0.63, glucose 201, and calcium is 7.7. SGOT is 72, SGPT 127, alkaline phosphatase 36, total protein is 5.1, albumin is 2.6. ASSESSMENT: 1. ACUTE ON CHRONIC RESPIRATORY FAILURE REQUIRING INVASIVE MECHANICAL VENTILATION. The patient failed sedation vacation this morning. The patient developed a sustained SVT. Spontaneous breathing trial was not performed. 2. SEVERE COPD, CURRENTLY NOT IN ACUTE SEVERE BRONCHOSPASM. 3. SEVERE ANXIETY. PLAN/RECOMMENDATION: 1. We will start the patient on Paxil 20 mg daily, starting tomorrow at 6 a.m. and we will increase the dose of Xanax to 0.5 mg every 6 hours around the clock. 2. We will do a sedation vacation again tomorrow morning and subsequently spontaneous breathing trial if patient is tolerating the sedation medication. 3. Continue to optimize the ventilator support, and hemodynamic and nutritional support. DICTATING PHYSICIAN: ASHLEY GONZALEZ MD,CHARISSE,MPH [id number] PHY#: [id number] 2013 ID: [id number] JOB#: [id number] ACCT: [id number] cc: > MTDD
[2018-02-20] MEDS: PROPOFOL 1,000 MG/100 ML INFUS..BTL IV PRN ×3 (02:32→22:51)
[2018-02-20 06:11] LABS: HEMATOCRIT 29.3 % (36.0-47.0); HEMOGLOBIN 9.6 g/dL (12.0-15.5); MEAN CORPUSCULAR HEMOGLOBIN 30.6 pg (27.0-33.4); MEAN CORPUSCULAR HGB CONC 32.6 g/dL (32.0-36.0); MEAN CORPUSCULAR VOLUME 94 fl (80-97); PLATELET COUNT 192 10^3/uL (150-450); RED BLOOD COUNT 3.12 10^6/uL (3.72-5.28); RED CELL DISTRIBUTION WIDTH 16.7 % (11.5-14.0); WHITE BLOOD COUNT 14.7 10^3/uL (4.0-10.5)
[2018-02-20 06:18] LABS: ARTERIAL BLOOD BASE EXCESS -1.3 mmol/L; ARTERIAL BLOOD FIO2 30%; ARTERIAL BLOOD H2CO3 1.25 mmol/L (1.05-1.35); ARTERIAL BLOOD HCO3 23.8 mmol/L (20-24); ARTERIAL BLOOD PCO2 41.4 mmHg (35-45); ARTERIAL BLOOD PH 7.38 (7.35-7.45); ARTERIAL BLOOD PO2 93.8 mmHg (80-100)
[2018-02-20 06:29] LABS: ALANINE AMINOTRANSFERASE 152 U/L (9-52); ALBUMIN 2.5 g/dL (3.5-5.0); ALKALINE PHOSPHATASE 32 U/L (38-126); ASPARTATE AMINO TRANSFERASE 63 U/L (14-36); BILIRUBIN,DIRECT 0.3 mg/dL (0.0-0.4); BILIRUBIN,TOTAL 0.3 mg/dL (0.2-1.3); BLOOD UREA NITROGEN 41 mg/dL (7-20); CALCIUM 7.4 mg/dL (8.4-10.2); CHLORIDE 110 mmol/L (98-107); GLUCOSE 196 mg/dL (75-110); TOTAL PROTEIN 4.8 g/dL (6.3-8.2)
[2018-02-20] MEDS: ALPRAZOLAM 0.5 MG TABLET PO SCH ×3 (06:29→17:02)
[2018-02-20] MEDS: METHYLPREDNISOLONE INJ 125 MG/2 ML SDV IV SCH ×3 (06:29→21:30)
[2018-02-20 06:32] LABS: ABSOLUTE LYMPHOCYTES# (MANUAL) 0.7 10^3/uL (0.5-4.7); ABSOLUTE MONOCYTES # (MANUAL) 0.3 10^3/uL (0.1-1.4); ABSOLUTE NEUTROPHILS# (MANUAL) 13.7 10^3/uL (1.7-8.2); ANISOCYTOSIS 1+; BAND NEUTROPHILS % (MANUAL) 1 % (3-5); BASOPHILS % (MANUAL) 0 % (0-2); EOSINOPHILS % (MANUAL) 0 % (0-6); LYMPHOCYTES % (MANUAL) 5 % (13-45); MONOCYTES % (MANUAL) 2 % (3-13); PLATELET COMMENT ADEQUATE; SEGMENTED NEUTROPHILS % (MAN) 92 % (42-78); TOTAL CELLS COUNTED 100
[2018-02-20 06:34] LABS: CARBON DIOXIDE 27 mmol/L (22-30); SODIUM 140.5 mmol/L (137-145)
[2018-02-20 06:38] LABS: ANION GAP 4 (5-19)
[2018-02-20] MEDS: LEVALBUTEROL HCL NEB 1.25 MG/3 ML AMPUL NEB SCH ×3 (08:07→23:46)
--- NOTE | 2018-02-20 08:33 | RADIOLOGY REPORT (SQ) ---
EXAM DESCRIPTION: CHEST SINGLE VIEW COMPLETED DATE/TIME: 02/20/2018 5:05 am REASON FOR STUDY: mech vent COMPARISON: None. EXAM PARAMETERS: NUMBER OF VIEWS: One view. TECHNIQUE: Single frontal radiographic view of the chest acquired. RADIATION DOSE: NA LIMITATIONS: None. FINDINGS: LUNGS AND PLEURA: No opacities, masses or pneumothorax. No pleural effusion. MEDIASTINUM AND HILAR STRUCTURES: No masses. Contour normal. HEART AND VASCULAR STRUCTURES: Heart normal in size. Normal vasculature. BONES: No acute findings. HARDWARE: Stable endotracheal tube, nasogastric tube, and central line. OTHER: No other significant finding. IMPRESSION: STABLE APPEARANCE OF THE CHEST. NO ACUTE FINDINGS. TECHNICAL DOCUMENTATION: JOB ID: [id number] [employer]- All Rights Reserved Reading location - IP/workstation name: [email or web address]
[2018-02-20] MEDS ORDERED: DIGOXIN INJ 0.5 MG/2 ML AMPULE ONE (08:49)
[2018-02-20] MEDS: PAROXETINE HCL 20 MG TABLET PO SCH (08:54)
[2018-02-20] MEDS: MORPHINE SULFATE 10 MG/ML INJ IV PRN (08:54)
[2018-02-20] MEDS: METOPROLOL TARTRATE 25 MG TABLET NG SCH ×2 (09:02→21:31)
[2018-02-20] MEDS: DIGOXIN 0.125 MG TABLET PO SCH (09:02)
[2018-02-20] MEDS: ENOXAPARIN SODIUM INJ 40 MG/0.4 ML DISP.SYRIN SUBCUT SCH (09:03)
[2018-02-20] MEDS: ASPIRIN 81 MG TABLET, CHEWABLE NG SCH (09:03)
[2018-02-20] MEDS: FUROSEMIDE INJ/PF 20 MG/2 ML SDV IV SCH (09:03)
[2018-02-20 09:55] LABS: AMORPHOUS SEDIMENT,URINE TRACE /HPF; APPEARANCE,URINE CLOUDY; BILIRUBIN,URINE NEGATIVE (NEGATIVE); COLOR,URINE YELLOW; GLUCOSE, URINE NEGATIVE (NEGATIVE); KETONES,URINE NEGATIVE (NEGATIVE); LEUKOCYTE ESTERASE,URINE LARGE (NEGATIVE); NITRITE,URINE NEGATIVE (NEGATIVE); PROTEIN,URINE 100 mg/dL (NEGATIVE); URINE SPECIFIC GRAVITY 1.021; UROBILINOGEN,URINE NEGATIVE mg/dL (<2.0)
[2018-02-20] MEDS ORDERED: PAROXETINE HCL 20 MG TABLET PO SCH (10:00)
[2018-02-20] MEDS: NORMAL SALINE 1000 ML 1,000 ML IV PRN ×2 (10:48→22:51)
[2018-02-20] MEDS: DILTIAZEM HCL 30 MG TABLET NG SCH ×2 (11:11→17:02)
--- NOTE | 2018-02-20 16:41 | PDOC PROGRESS REPORT ---
Subjective Progress Note for:: 02/20/18 Subjective:: Pt tolerated 5 hours sedation vacation today and obeyed command and put was put back on sedation when her heart rate went up [id number]. She is presently on [facility]. ventilation with propofol sedation only at 20mcg/kg/min. Her WBC went up to 14.7 today, but no fever in the past 24-48 hours- possibly due to steroids.She had large bowel movement today and she is presently on tube feeding at 40 mls/ hour with no significant residuals. She is on FiO2 of 30%, tidal volume of 400 , respiratory rate of 16, PEEP of 5 and pressure support of 10. Reason For Visit: COPD EXACERBATION Physical Exam Vital Signs: Temp Pulse Resp BP Pulse Ox 99.3 F 104 H 12 147/61 H 92 02/20/18 14:30 02/20/18 12:00 02/20/18 14:30 02/20/18 14:30 02/20/18 14:30 Pulse Oximeter Continuous Start: 02/12/18 13: 38 Freq: RTQ4 Status: Complete Document 02/12/18 13:00 [facility] (Rec: 02/12/18 13:40 [facility] [id number]) Pulse Oximetry Assessment Oxygen Saturation (92-100) 97 Oxygen Delivery Method Bi-pap Fraction of Inspired Oxygen (FIO2) 45 Equipment Usage Initial Set Up Continuous Pulse Oximeter 24 Hour Charge Charge Now Continuous SpO2 Machine # n2 Pulse Oximeter Continuous Start: 02/12/18 14: 27 Freq: RTQ4 Status: Complete Document 02/15/18 17:24 [facility] (Rec: 02/15/18 17:24 [facility] [email or web address]) Pulse Oximetry Assessment Equipment Usage Equipment Discontinued Continuous SpO2 Machine # 2 Intake & Output 02/19/18 02/20/18 02/21/18 06:59 06:59 06:59 Intake Total 1633 2155 700 Output Total 1005 995 970 Balance 628 1160 -270 Weight 67.3 kg 69.9 kg General appearance: PRESENT: no acute distress, well-developed, well-nourished Head exam: PRESENT: atraumatic, normocephalic Mouth exam: PRESENT: neck supple Neck exam: PRESENT: full ROM Respiratory exam: PRESENT: decreased breath sounds, symmetrical Cardiovascular exam: PRESENT: +S1, +S2 Pulses: PRESENT: +1 pedal pulses bilateral GI/Abdominal exam: PRESENT: normal bowel sounds, soft Rectal exam: PRESENT: deferred Extremities exam: PRESENT: full ROM Musculoskeletal exam: PRESENT: full ROM Additional comments: On mech. ventilation with sedation. Results Laboratory Results: 02/20/18 05:45 02/20/18 05:45 02/20/18 02/20/18 02/20/18 05:45 05:45 05:45 WBC 14.7 H RBC 3.12 L Hgb 9.6 L Hct 29.3 L MCV 94 MCH 30.6 MCHC 32.6 RDW 16.7 H Plt Count 192 Seg Neutrophils % Not Reportable Lymphocytes % Not Reportable Monocytes % Not Reportable Eosinophils % Not Reportable Basophils % Not Reportable Absolute Neutrophils Not Reportable Absolute Lymphocytes Not Reportable Absolute Monocytes Not Reportable Absolute Eosinophils Not Reportable Absolute Basophils Not Reportable Carbonic Acid 1.25 HCO3/H2CO3 Ratio 19:1 ABG pH 7.38 ABG pCO2 41.4 ABG pO2 93.8 ABG HCO3 23.8 ABG O2 Saturation 97.0 ABG Base Excess -1.3 FiO2 30% Sodium 140.5 Potassium 4.0 Chloride 110 H Carbon Dioxide 27 Anion Gap 4 L BUN 41 H Creatinine 0.67 Est GFR ( Amer) > 60 Est GFR (Non-Af Amer) > 60 Glucose 196 H Calcium 7.4 L Total Bilirubin 0.3 AST 63 H ALT 152 H Alkaline Phosphatase 32 L Total Protein 4.8 L Albumin 2.5 L Urine Color Urine Appearance Urine pH Ur Specific [place] Urine Protein Urine Glucose (UA) Urine Ketones Urine Blood Urine Nitrite Ur Leukocyte Esterase Urine WBC (Auto) Urine RBC (Auto) 02/20/18 09:12 WBC RBC Hgb Hct MCV MCH MCHC RDW Plt Count Seg Neutrophils % Lymphocytes % Monocytes % Eosinophils % Basophils % Absolute Neutrophils Absolute Lymphocytes Absolute Monocytes Absolute Eosinophils Absolute Basophils Carbonic Acid HCO3/H2CO3 Ratio ABG pH ABG pCO2 ABG pO2 ABG HCO3 ABG O2 Saturation ABG Base Excess FiO2 Sodium Potassium Chloride Carbon Dioxide Anion Gap BUN Creatinine Est GFR ( Amer) Est GFR (Non-Af Amer) Glucose Calcium Total Bilirubin AST ALT Alkaline Phosphatase Total Protein Albumin Urine Color YELLOW Urine Appearance CLOUDY Urine pH 6.0 Ur Specific [place] 1.021 Urine Protein 100 H Urine Glucose (UA) NEGATIVE Urine Ketones NEGATIVE Urine Blood LARGE H Urine Nitrite NEGATIVE Ur Leukocyte Esterase LARGE H Urine WBC (Auto) >182 Urine RBC (Auto) >182 02/17/18 02/18/18 02/18/18 05:15 10:30 10:30 Creatine Kinase 58 CK-MB (CK-2) 1.44 Troponin I 0.022 NT-Pro-B Natriuret Pep 403 Impressions: Chest/Abdomen CTA 02/12/18 00:00 IMPRESSION: 1. There is no evidence of pulmonary emboli. 2. Extensive pulmonary emphysema. 3. Cholelithiasis. Head CT 02/15/18 00:00 IMPRESSION: Very limited negative study EVIDENCE OF ACUTE STROKE: NO. KUB X-Ray 02/15/18 00:00 IMPRESSION: Nasogastric tube tip and side port in the stomach Chest X-Ray 02/20/18 05:00 IMPRESSION: STABLE APPEARANCE OF THE CHEST. NO ACUTE FINDINGS. Assessment & Plan - Diagnosis (1) Acute and chronic respiratory failure Qualifiers: Respiratory failure complication: hypoxia and hypercapnia Qualified Code(s) : J96.21 - Acute and chronic respiratory failure with hypoxia; J96.22 - Acute and chronic respiratory failure with hypercapnia; J96.22 - Acute and chronic respiratory failure with hypercapnia; J96.22 - Acute and chronic respiratory failure with hypercapnia Is this a current diagnosis for this admission?: Yes Plan: Ct with [facility]. ventilation. Ct with IV fluids normal saline at 75 cc/hr; Ct with Lasix 20 mg daily IV; Morphine 1 mg q2h IV prn; strict input/output chart. Daily weight; Monitor chemistries daily and CBC daily; f/u power electronics research engineer, Dr Benavidez for ventilator mgt. (2) COPD exacerbation Is this a current diagnosis for this admission?: Yes Plan: Ct with Duonebs q4h prn; Xopenex nebs 1.25 mg q8h; Solumedrol 60 mg q8h IV; Rocephin 1 g daily. (3) SVT (supraventricular tachycardia) Is this a current diagnosis for this admission?: Yes Plan: Pt was given Digoxin 0.5 mg stat IV and responded to Adenosine 6 mg IVx1; Ct with Digoxin 0.[address] with Cardizem 30 mg q6h P.O via NGT. F/u Dr Weiss. (4) Hypertension Qualifiers: Hypertension type: essential hypertension Qualified Code(s): I10 - Essential (primary) hypertension Is this a current diagnosis for this admission?: Yes Plan: Ct with Metoprolol 12.5 mg q12h IV: Ct with Cardizem 30 mg q6h via NG tube . (5) Hyperlipidemia Qualifiers: Hyperlipidemia type: mixed hyperlipidemia Qualified Code(s): E78.2 - Mixed hyperlipidemia Is this a current diagnosis for this admission?: Yes Plan: Ct with Atorvastatin 40 mg qhs via NG tube. (6) Reflux esophagitis Is this a current diagnosis for this admission?: Yes Plan: Ct with Protonix 40 mg qd IV. (7) Anxiety disorder Qualifiers: Anxiety disorder type: generalized anxiety disorder Qualified Code(s): F41.1 - Generalized anxiety disorder Is this a current diagnosis for this admission?: Yes Plan: Ct with Xanax 0.5 mg q6h PO via NGT; Paroxetine 20 mg qd pO via NGT. . (8) DVT prophylaxis Is this a current diagnosis for this admission?: Yes Plan: Ct with Lovenox 40 mg qd subcut; SCD.
--- NOTE | 2018-02-20 20:44 | PDOC PROGRESS REPORT ---
Subjective Progress Note for:: 02/20/18 Subjective:: Patient about the same and has made very little progress. There is no significant change in general condition. Patient remains intubated, sedated, patient however looks comfortable and in acute distress. Maintaining sinus rhythm with intermittent tachycardia. Medications reviewed. Reason For Visit: COPD EXACERBATION Physical Exam Vital Signs: Temp Pulse Resp BP Pulse Ox 99.5 F 96 15 125/57 L 93 02/20/18 19:44 02/20/18 16:23 02/20/18 18:01 02/20/18 18:00 02/20/18 19:59 Pulse Oximeter Continuous Start: 02/12/18 13: 38 Freq: RTQ4 Status: Complete Document 02/12/18 13:00 CW (Rec: 02/12/18 13:40 [facility] [email or web address]) Pulse Oximetry Assessment Oxygen Saturation (92-100) 97 Oxygen Delivery Method Bi-pap Fraction of Inspired Oxygen (FIO2) 45 Equipment Usage Initial Set Up Continuous Pulse Oximeter 24 Hour Charge Charge Now Continuous SpO2 Machine # n2 Pulse Oximeter Continuous Start: 02/12/18 14: 27 Freq: RTQ4 Status: Complete Document 02/15/18 17:24 JDR (Rec: 02/15/18 17:24 JDR [email or web address]) Pulse Oximetry Assessment Equipment Usage Equipment Discontinued Continuous SpO2 Machine # 2 Intake & Output 02/19/18 02/20/18 02/21/18 06:59 06:59 06:59 Intake Total 1633 2155 1096 Output Total 1491 041 0437 Balance 628 1160 -104 Weight 67.3 kg 69.9 kg Exam: GENERAL: well-nourished and in no acute distress. Patient is intubated and sedated. Orientation cannot be checked HEAD: Atraumatic, normocephalic. EYES: Pupils equal round and reactive to light, extraocular movements could not be checked, sclera anicteric, conjunctiva are normal. ENT: TMs normal, nares patent, oropharynx clear without exudates. Moist mucous membranes. No oral ulcerations or bleeding gums noted NECK: supple without lymphadenopathy or JVD. Trachea is central. No cervical or axillary lymphadenopathy noted. Carotids are 2+ LUNGS: Breath sounds mostly clear to auscultation patient is noted to have bibasal crackles at the extreme bases CHEST: Palpation of the chest wall shows no significant chest wall tenderness or abnormalities. 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 ABDOMEN: Soft, no significant tenderness appreciated, normoactive bowel sounds. No guarding, no rebound. No rigidity noted . No masses appreciated. EXTREMITIES: Pedal pulses are 1-2+, no calf tenderness noted, 1+ pedal edema noted. No clubbing or cyanosis. NEUROLOGICAL: The patient cannot participate in the neurological exam but no facial asymmetry noted. Extremities slightly hypotonic PSYCH: This cannot be evaluated. Patient cannot participate. SKIN: No significant ecchymosis, rash, or signs of pruritus noted. MUSCULOSKELETAL EXAM: No significant joint swelling noted. Patient cannot participate in musculoskeletal exam Results Laboratory Results: 02/20/18 05:45 02/20/18 05:45 02/20/18 02/20/18 02/20/18 05:45 05:45 05:45 WBC 14.7 H RBC 3.12 L Hgb 9.6 L Hct 29.3 L MCV 94 MCH 30.6 MCHC 32.6 RDW 16.7 H Plt Count 192 Seg Neutrophils % Not Reportable Lymphocytes % Not Reportable Monocytes % Not Reportable Eosinophils % Not Reportable Basophils % Not Reportable Absolute Neutrophils Not Reportable Absolute Lymphocytes Not Reportable Absolute Monocytes Not Reportable Absolute Eosinophils Not Reportable Absolute Basophils Not Reportable Carbonic Acid 1.25 HCO3/H2CO3 Ratio 19:1 ABG pH 7.38 ABG pCO2 41.4 ABG pO2 93.8 ABG HCO3 23.8 ABG O2 Saturation 97.0 ABG Base Excess -1.3 FiO2 30% Sodium 140.5 Potassium 4.0 Chloride 110 H Carbon Dioxide 27 Anion Gap 4 L BUN 41 H Creatinine 0.67 Est GFR ( Amer) > 60 Est GFR (Non-Af Amer) > 60 Glucose 196 H Calcium 7.4 L Total Bilirubin 0.3 AST 63 H ALT 152 H Alkaline Phosphatase 32 L Total Protein 4.8 L Albumin 2.5 L Urine Color Urine Appearance Urine pH Ur Specific [place] Urine Protein Urine Glucose (UA) Urine Ketones Urine Blood Urine Nitrite Ur Leukocyte Esterase Urine WBC (Auto) Urine RBC (Auto) 02/20/18 09:12 WBC RBC Hgb Hct MCV MCH MCHC RDW Plt Count Seg Neutrophils % Lymphocytes % Monocytes % Eosinophils % Basophils % Absolute Neutrophils Absolute Lymphocytes Absolute Monocytes Absolute Eosinophils Absolute Basophils Carbonic Acid HCO3/H2CO3 Ratio ABG pH ABG pCO2 ABG pO2 ABG HCO3 ABG O2 Saturation ABG Base Excess FiO2 Sodium Potassium Chloride Carbon Dioxide Anion Gap BUN Creatinine Est GFR ( Amer) Est GFR (Non-Af Amer) Glucose Calcium Total Bilirubin AST ALT Alkaline Phosphatase Total Protein Albumin Urine Color YELLOW Urine Appearance CLOUDY Urine pH 6.0 Ur Specific [place] 1.021 Urine Protein 100 H Urine Glucose (UA) NEGATIVE Urine Ketones NEGATIVE Urine Blood LARGE H Urine Nitrite NEGATIVE Ur Leukocyte Esterase LARGE H Urine WBC (Auto) >182 Urine RBC (Auto) >182 02/17/18 02/18/18 02/18/18 05:15 10:30 10:30 Creatine Kinase 58 CK-MB (CK-2) 1.44 Troponin I 0.022 NT-Pro-B Natriuret Pep 403 Impressions: Chest/Abdomen CTA 02/12/18 00:00 IMPRESSION: 1. There is no evidence of pulmonary emboli. 2. Extensive pulmonary emphysema. 3. Cholelithiasis. Head CT 02/15/18 00:00 IMPRESSION: Very limited negative study EVIDENCE OF ACUTE STROKE: NO. KUB X-Ray 02/15/18 00:00 IMPRESSION: Nasogastric tube tip and side port in the stomach Chest X-Ray 02/20/18 05:00 IMPRESSION: STABLE APPEARANCE OF THE CHEST. NO ACUTE FINDINGS. Assessment & Plan - Diagnosis (1) Supraventricular tachycardia Is this a current diagnosis for this admission?: Yes (2) Acute and chronic respiratory failure Qualifiers: Respiratory failure complication: hypoxia and hypercapnia Qualified Code(s) : J96.21 - Acute and chronic respiratory failure with hypoxia; J96.22 - Acute and chronic respiratory failure with hypercapnia; J96.22 - Acute and chronic respiratory failure with hypercapnia; J96.22 - Acute and chronic respiratory failure with hypercapnia Is this a current diagnosis for this admission?: Yes (3) COPD exacerbation Is this a current diagnosis for this admission?: Yes (4) Hypertension Qualifiers: Hypertension type: essential hypertension Qualified Code(s): I10 - Essential (primary) hypertension Is this a current diagnosis for this admission?: Yes - Notes Notes: 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 This is because the narrow complex tachycardia responded to IV adenosine. Patient placed on Cardizem 30 mg p.o. every 6, digoxin 0.125 mg p.o. daily. Patient remains on low-dose metoprolol 12.5 mg p.o. twice daily. Acute on chronic respiratory failure: Patient has underlying severe COPD. Continue with mechanical ventilation and oxygenation. Hypertension: Currently blood pressure under reasonable control in fact was on low side this morning possibly related to narrow complex tachycardia. General debility; patient has been in the unit. Overall prognosis is guarded. Will review previous records. No recent echo echo noted therefore have ordered a 2D echocardiogram. - Time Time with patient: Greater than 35 minutes - CODE STATUS was discussed, patient remains full code. Surrogate decision-maker unchanged. Multiple medical problems were addressed. More than 50% of the time spent coordinating care, discussing management plans with involved caregivers. Management plans discussed with involved personnels. Medical decision making was of moderate to high complexity, patient's has multiple comorbidities. Medications reviewed and adjusted accordingly: Yes
[2018-02-20] MEDS: ATORVASTATIN CALCIUM 40 MG TABLET NG SCH (21:30)
[2018-02-21] MEDS: ALPRAZOLAM 0.5 MG TABLET PO SCH ×4 (00:08→18:44)
[2018-02-21] MEDS: DILTIAZEM HCL 30 MG TABLET NG SCH ×4 (00:08→18:44)
[2018-02-21] MEDS: METHYLPREDNISOLONE INJ 125 MG/2 ML SDV IV SCH ×3 (05:01→21:11)
[2018-02-21] MEDS: PROPOFOL 1,000 MG/100 ML INFUS..BTL IV PRN ×3 (05:02→18:55)
[2018-02-21 05:50] LABS: HEMATOCRIT 29.6 % (36.0-47.0); HEMOGLOBIN 9.6 g/dL (12.0-15.5); MEAN CORPUSCULAR HEMOGLOBIN 30.7 pg (27.0-33.4); MEAN CORPUSCULAR HGB CONC 32.5 g/dL (32.0-36.0); MEAN CORPUSCULAR VOLUME 95 fl (80-97); PLATELET COUNT 205 10^3/uL (150-450); RED BLOOD COUNT 3.13 10^6/uL (3.72-5.28); RED CELL DISTRIBUTION WIDTH 16.4 % (11.5-14.0); WHITE BLOOD COUNT 17.5 10^3/uL (4.0-10.5)
[2018-02-21 06:04] LABS: ALANINE AMINOTRANSFERASE 408 U/L (9-52); ALBUMIN 2.6 g/dL (3.5-5.0); ALKALINE PHOSPHATASE 47 U/L (38-126); ASPARTATE AMINO TRANSFERASE 192 U/L (14-36); BILIRUBIN,DIRECT 0.3 mg/dL (0.0-0.4); BILIRUBIN,TOTAL 0.3 mg/dL (0.2-1.3); BLOOD UREA NITROGEN 35 mg/dL (7-20); CALCIUM 7.6 mg/dL (8.4-10.2); CHLORIDE 109 mmol/L (98-107); GLUCOSE 189 mg/dL (75-110); POTASSIUM 4.3 mmol/L (3.6-5.0); TOTAL PROTEIN 5.1 g/dL (6.3-8.2)
[2018-02-21 06:09] LABS: ANION GAP 5 (5-19); CARBON DIOXIDE 27 mmol/L (22-30); SODIUM 141.1 mmol/L (137-145)
--- NOTE | 2018-02-21 06:55 | PROGRESS NOTE E ---
Progress Note NAME: SOM MCALLISTER : 1945 AGE: 72Y DATE: 02/20/2018 ROOM: 606 SUBJECTIVE: The patient is a 72-year-old female who came in with acute respiratory failure requiring invasive mechanical ventilation due to COPD exacerbation. The patient has [id number] endotracheal tube secretions requiring suctioning every 1-2 hours. Denies any fever, chills. No vomiting. No diarrhea. Patient tolerated spontaneous breathing trial for about 2 hours, according to the nurse. After 2 hours, patient started becoming tachycardic again, so patient was placed back on Levophed. Ventilatory rate was increased back to 16. Apparently, he is currently on 25 mcg per minute of propofol. The patient appeared to be awake and the eyes are open, but not responsive. OBJECTIVE: GENERAL: Currently, patient appeared to be awake, slightly sedated, afebrile, not in apparent respiratory distress. VITAL SIGNS: A temperature that was 99.5 with a T-max of 99.5, pulse rate of 95, blood pressure is 125/57, respiratory rate 15, saturations 94% on FiO2 of 30%, pressure support of 10, PEEP of 5, tidal volume of 400, ventilation 6.4, and peak airway pressure is 22. EYES: No jaundice or pallor. EARS, NOSE, AND THROAT: No ear drainage. No nasal discharge. HEAD AND NECK: No scalp tenderness or neck tenderness. CHEST AND LUNGS: No wheezing, no rhonchi, no coarse crackles. CARDIOVASCULAR: S1, S2 distinct. Normal rate, regular rhythm. ABDOMEN: Flabby. Positive bowel sounds. Soft, nondistended, nontender. EXTREMITIES: No joint swelling and no cellulitis. ASSESSMENT: 1. ACUTE RESPIRATORY FAILURE REQUIRING INVASIVE MECHANICAL VENTILATION, APPEARS TO BE IMPROVING. 2. SEVERE COPD EXACERBATION. Currently not in acute bronchospasm. 3. PNEUMONIA. 4. SEVERE ANXIETY . PLAN/RECOMMENDATIONS: Continue Paxil. Continue Xanax 0.5 mg every 6 hours. Will wean off the IV sedation again this afternoon and will don spontaneous breathing trial. Continue same IV antibiotics. Decrease her Solu-Medrol dose to 40 mg IV q. 8. DICTATING PHYSICIAN: ASHLEY GONZALEZ MD,CHARISSE,MPH [id number] Y#: [id number] 1910 ID: [id number] JOB#: [id number] ACCT: [id number] cc: > HILARIO
[2018-02-21 07:54] LABS: ABSOLUTE LYMPHOCYTES# (MANUAL) 1.8 10^3/uL (0.5-4.7); ABSOLUTE MONOCYTES # (MANUAL) 0.5 10^3/uL (0.1-1.4); ABSOLUTE NEUTROPHILS# (MANUAL) 15.2 10^3/uL (1.7-8.2); BASOPHILS % (MANUAL) 0 % (0-2); EOSINOPHILS % (MANUAL) 0 % (0-6); LYMPHOCYTES % (MANUAL) 10 % (13-45); MONOCYTES % (MANUAL) 3 % (3-13); SEGMENTED NEUTROPHILS % (MAN) 87 % (42-78); TOTAL CELLS COUNTED 100
[2018-02-21 07:55] LABS: ANISOCYTOSIS 1+; OVALOCYTES 1+; PLATELET CLUMPS PRESENT; PLATELET COMMENT ADEQUATE; POIKILOCYTOSIS 1+
[2018-02-21] MEDS: LEVALBUTEROL HCL NEB 1.25 MG/3 ML AMPUL NEB SCH ×2 (08:19→16:07)
[2018-02-21] MEDS: PAROXETINE HCL 20 MG TABLET PO SCH (08:51)
[2018-02-21] MEDS: METOPROLOL TARTRATE 25 MG TABLET NG SCH ×2 (09:01→21:10)
[2018-02-21] MEDS: ASPIRIN 81 MG TABLET, CHEWABLE NG SCH (09:01)
[2018-02-21] MEDS: FUROSEMIDE INJ/PF 20 MG/2 ML SDV IV SCH (09:02)
[2018-02-21] MEDS: DIGOXIN 0.125 MG TABLET PO SCH (09:02)
[2018-02-21] MEDS: ENOXAPARIN SODIUM INJ 40 MG/0.4 ML DISP.SYRIN SUBCUT SCH (09:03)
[2018-02-21 11:33] LABS: ARTERIAL BLOOD BASE EXCESS 2.6 mmol/L; ARTERIAL BLOOD HCO3 28.5 mmol/L (20-24); ARTERIAL BLOOD O2 SATURATION 93.7 % (94-98); ARTERIAL BLOOD PCO2 49.7 mmHg (35-45); ARTERIAL BLOOD PH 7.38 (7.35-7.45); ARTERIAL BLOOD PO2 70.9 mmHg (80-100)
[2018-02-21 11:35] LABS: ARTERIAL BLOOD FIO2 30%
--- NOTE | 2018-02-21 11:49 | PDOC PROGRESS REPORT ---
Subjective Progress Note for:: 02/21/18 Subjective:: Patient about the same and has made very little progress. There is no significant change in general condition. Patient remains intubated, sedated, patient however looks comfortable and in acute distress. Patient's heart rhythm however has stabilized and no further narrow complex tachycardia noted. Medications reviewed. Reason For Visit: COPD EXACERBATION Physical Exam Vital Signs: Temp Pulse Resp BP Pulse Ox 98.6 F 81 11 L 125/55 L 93 02/21/18 10:01 02/21/18 08:19 02/21/18 10:01 02/21/18 10:01 02/21/18 10:01 Pulse Oximeter Continuous Start: 02/12/18 13: 38 Freq: RTQ4 Status: Complete Document 02/12/18 13:00 CW (Rec: 02/12/18 13:40 [facility] [id number]) Pulse Oximetry Assessment Oxygen Saturation (92-100) 97 Oxygen Delivery Method Bi-pap Fraction of Inspired Oxygen (FIO2) 45 Equipment Usage Initial Set Up Continuous Pulse Oximeter 24 Hour Charge Charge Now Continuous SpO2 Machine # n2 Pulse Oximeter Continuous Start: 02/12/18 14: 27 Freq: RTQ4 Status: Complete Document 02/15/18 17:24 JDR (Rec: 02/15/18 17:24 JDR [email or web address]) Pulse Oximetry Assessment Equipment Usage Equipment Discontinued Continuous SpO2 Machine # 2 Intake & Output 02/20/18 02/21/18 02/22/18 06:59 06:59 06:59 Intake Total 2155 2096 40 Output Total 995 1625 450 Balance 1160 471 -410 Weight 69.9 kg 71.6 kg Exam: GENERAL: well-nourished and in no acute distress. Patient is intubated and sedated. Orientation cannot be checked HEAD: Atraumatic, normocephalic. EYES: Pupils equal round and reactive to light, extraocular movements could not be checked, sclera anicteric, conjunctiva are normal. ENT: TMs normal, nares patent, oropharynx clear without exudates. Moist mucous membranes. No oral ulcerations or bleeding gums noted NECK: supple without lymphadenopathy or JVD. Trachea is central. No cervical or axillary lymphadenopathy noted. Carotids are 2+ LUNGS: Breath sounds mostly clear to auscultation patient is noted to have bibasal crackles at the extreme bases CHEST: Palpation of the chest wall shows no significant chest wall tenderness or abnormalities. 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 ABDOMEN: Soft, no significant tenderness appreciated, normoactive bowel sounds. No guarding, no rebound. No rigidity noted . No masses appreciated. EXTREMITIES: Pedal pulses are 1-2+, no calf tenderness noted, 1+ pedal edema noted. No clubbing or cyanosis. NEUROLOGICAL: The patient cannot participate in the neurological exam but no facial asymmetry noted. Extremities slightly hypotonic PSYCH: This cannot be evaluated. Patient cannot participate. SKIN: No significant ecchymosis, rash, or signs of pruritus noted. MUSCULOSKELETAL EXAM: No significant joint swelling noted. Patient cannot participate in musculoskeletal exam Results Laboratory Results: 02/21/18 05:00 02/21/18 05:00 02/21/18 02/21/18 02/21/18 05:00 05:00 10:50 WBC 17.5 H RBC 3.13 L Hgb 9.6 L Hct 29.6 L MCV 95 MCH 30.7 MCHC 32.5 RDW 16.4 H Plt Count 205 Seg Neutrophils % Not Reportable Lymphocytes % Not Reportable Monocytes % Not Reportable Eosinophils % Not Reportable Basophils % Not Reportable Absolute Neutrophils Not Reportable Absolute Lymphocytes Not Reportable Absolute Monocytes Not Reportable Absolute Eosinophils Not Reportable Absolute Basophils Not Reportable Carbonic Acid 1.50 H HCO3/H2CO3 Ratio 19:1 ABG pH 7.38 ABG pCO2 49.7 H ABG pO2 70.9 L ABG HCO3 28.5 H ABG O2 Saturation 93.7 L ABG Base Excess 2.6 FiO2 30% Sodium 141.1 Potassium 4.3 Chloride 109 H Carbon Dioxide 27 Anion Gap 5 BUN 35 H Creatinine 0.56 Est GFR ( Amer) > 60 Est GFR (Non-Af Amer) > 60 Glucose 189 H Calcium 7.6 L Total Bilirubin 0.3 AST 192 H ALT 408 H Alkaline Phosphatase 47 Total Protein 5.1 L Albumin 2.6 L 02/17/18 02/18/18 02/18/18 05:15 10:30 10:30 Creatine Kinase 58 CK-MB (CK-2) 1.44 Troponin I 0.022 NT-Pro-B Natriuret Pep 403 EKG Comments: Telemetry shows sinus rhythm, no sustained tachyarrhythmia or bradycardia arrhythmias noted Impressions: Chest/Abdomen CTA 02/12/18 00:00 IMPRESSION: 1. There is no evidence of pulmonary emboli. 2. Extensive pulmonary emphysema. 3. Cholelithiasis. Head CT 02/15/18 00:00 IMPRESSION: Very limited negative study EVIDENCE OF ACUTE STROKE: NO. KUB X-Ray 02/15/18 00:00 IMPRESSION: Nasogastric tube tip and side port in the stomach Chest X-Ray 02/20/18 05:00 IMPRESSION: STABLE APPEARANCE OF THE CHEST. NO ACUTE FINDINGS. Assessment & Plan - Diagnosis (1) Supraventricular tachycardia Is this a current diagnosis for this admission?: Yes (2) Acute and chronic respiratory failure Qualifiers: Respiratory failure complication: hypoxia and hypercapnia Qualified Code(s) : J96.21 - Acute and chronic respiratory failure with hypoxia; J96.22 - Acute and chronic respiratory failure with hypercapnia; J96.22 - Acute and chronic respiratory failure with hypercapnia; J96.22 - Acute and chronic respiratory failure with hypercapnia Is this a current diagnosis for this admission?: Yes (3) COPD exacerbation Is this a current diagnosis for this admission?: Yes (4) Hypertension Qualifiers: Hypertension type: essential hypertension Qualified Code(s): I10 - Essential (primary) hypertension Is this a current diagnosis for this admission?: Yes - Notes Notes: Continue current regimen of Cardizem, metoprolol and also digoxin. So far patient seems to be tolerating this. Recommend checking a digoxin level after 5 doses. 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 This is because the narrow complex tachycardia responded to IV adenosine. Patient placed on Cardizem 30 mg p.o. every 6, digoxin 0.125 mg p.o. daily. Patient remains on low-dose metoprolol 12.5 mg p.o. twice daily. Acute on chronic respiratory failure: Patient has underlying severe COPD. Continue with mechanical ventilation and oxygenation. Hypertension: Currently blood pressure under reasonable control in fact was on low side this morning possibly related to narrow complex tachycardia. General debility; patient has been in the unit. Overall prognosis is guarded. Will review previous records. No recent echo noted therefore have ordered a 2D echocardiogram. This is pending. - Time Time with patient: 15-25 minutes - CODE STATUS was discussed, patient remains full code. Surrogate decision-maker unchanged. Multiple medical problems were addressed. More than 50% of the time spent coordinating care, discussing management plans with involved caregivers. Management plans discussed with involved personnels. Medical decision making was of moderate to high complexity , patient's has multiple comorbidities. Medications reviewed and adjusted accordingly: Yes
[2018-02-21] MEDS: NORMAL SALINE 1000 ML 1,000 ML IV PRN (13:26)
[2018-02-21] MEDS ORDERED: PROPOFOL INJ 200 MG/20 ML VIAL IV ONE (14:02)
--- NOTE | 2018-02-21 14:57 | RADIOLOGY REPORT (SQ) ---
EXAM DESCRIPTION: CHEST SINGLE VIEW COMPLETED DATE/TIME: 02/21/2018 2:38 pm REASON FOR STUDY: ET TUBE PLACEMENT COMPARISON: 02/20/2018. EXAM PARAMETERS: NUMBER OF VIEWS: One view. TECHNIQUE: Single frontal radiographic view of the chest acquired. RADIATION DOSE: NA LIMITATIONS: Limited by hardware overlying the chest. The left lung base is obscured by the patient' s hand. FINDINGS: LUNGS AND PLEURA: No opacities, masses or pneumothorax. No pleural effusion. MEDIASTINUM AND HILAR STRUCTURES: No masses. Contour normal. HEART AND VASCULAR STRUCTURES: Heart normal in size. Normal vasculature. BONES: No acute findings. HARDWARE: Endotracheal tube with the tip located 3 cm proximal to the monster. Nasogastric tube with the tip in the stomach. Central line with the tip of the level of the cavoatrial junction. OTHER: No other significant finding. IMPRESSION: LIMITED STUDY. HARDWARE APPEARS TO BE IN APPROPRIATE POSITION. TECHNICAL DOCUMENTATION: JOB ID: [id number] [employer]- All Rights Reserved Reading location - IP/workstation name: [email or web address]
--- NOTE | 2018-02-21 15:18 | RADIOLOGY REPORT (SQ) ---
EXAM DESCRIPTION: KUB/ABDOMEN (SINGLE VIEW) COMPLETED DATE/TIME: 02/21/2018 3:05 pm REASON FOR STUDY: Check Placement of NG Tube COMPARISON: 02/15/2018. NUMBER OF VIEWS: One view. TECHNIQUE: Supine radiographic image of the upper abdomen acquired. LIMITATIONS: None. FINDINGS: BOWEL GAS PATTERN: Normal bowel gas pattern. No dilated loops. CALCIFICATIONS: No suspicious calcifications. SOFT TISSUES: No gross mass or suggestion of organomegaly. HARDWARE: Nasogastric tube with the tip in stomach. BONES: No acute fracture. No worrisome bone lesions. OTHER: Calcified gallstone. No other significant finding. IMPRESSION: NASOGASTRIC TUBE WITH THE TIP IN THE STOMACH. TECHNICAL DOCUMENTATION: JOB ID: [id number] [employer]- All Rights Reserved Reading location - IP/workstation name: [email or web address]
[2018-02-21 16:02] LABS: ARTERIAL BLOOD BASE EXCESS -0.5 mmol/L; ARTERIAL BLOOD H2CO3 1.56 mmol/L (1.05-1.35); ARTERIAL BLOOD HCO3 26.1 mmol/L (20-24); ARTERIAL BLOOD O2 SATURATION 92.7 % (94-98); ARTERIAL BLOOD PCO2 51.8 mmHg (35-45); ARTERIAL BLOOD PH 7.32 (7.35-7.45); ARTERIAL BLOOD PO2 70.7 mmHg (80-100); ARTERIAL BLOOD TOTAL CO2 27.7 mmol/L (21-25)
[2018-02-21 16:04] LABS: ARTERIAL BLOOD FIO2 30%
--- NOTE | 2018-02-21 18:27 | PDOC PROGRESS REPORT ---
Subjective Progress Note for:: 02/21/18 Subjective:: The patient is sedated and intubated. No acute distress. Reason For Visit: COPD EXACERBATION Physical Exam Vital Signs: Temp Pulse Resp BP Pulse Ox 98.2 F 59 L 16 102/45 L 95 02/21/18 15:37 02/21/18 16:07 02/21/18 16:07 02/21/18 15:37 02/21/18 16:07 Pulse Oximeter Continuous Start: 02/12/18 13: 38 Freq: RTQ4 Status: Complete Document 02/12/18 13:00 CW (Rec: 02/12/18 13:40 [facility] [id number]) Pulse Oximetry Assessment Oxygen Saturation (92-100) 97 Oxygen Delivery Method Bi-pap Fraction of Inspired Oxygen (FIO2) 45 Equipment Usage Initial Set Up Continuous Pulse Oximeter 24 Hour Charge Charge Now Continuous SpO2 Machine # n2 Pulse Oximeter Continuous Start: 02/12/18 14: 27 Freq: RTQ4 Status: Complete Document 02/15/18 17:24 JDR (Rec: 02/15/18 17:24 JDR [email or web address]) Pulse Oximetry Assessment Equipment Usage Equipment Discontinued Continuous SpO2 Machine # 2 Intake & Output 02/20/18 02/21/18 02/22/18 06:59 06:59 06:59 Intake Total 2155 2096 1040 Output Total 995 1625 1225 Balance 1160 471 -185 Weight 69.9 kg 71.6 kg General appearance: PRESENT: other - Sedated and intubated. Respiratory exam: PRESENT: other - No increased work of breathing. The patient is again mechanically ventilated.. ABSENT: rales, rhonchi, wheezes Cardiovascular exam: PRESENT: RRR. ABSENT: gallop, rubs, systolic murmur Pulses: PRESENT: other - Diminished distal pulses. GI/Abdominal exam: PRESENT: hypoactive bowel sounds, soft. ABSENT: distended, hernia, mass, organolmegaly, tenderness Extremities exam: ABSENT: clubbing, pedal edema, tenderness Musculoskeletal exam: PRESENT: normal inspection. ABSENT: deformity, dislocation, tenderness Skin exam: PRESENT: dry, intact, warm Results Laboratory Results: 02/21/18 05:00 02/21/18 05:00 02/21/18 02/21/18 02/21/18 05:00 05:00 10:50 WBC 17.5 H RBC 3.13 L Hgb 9.6 L Hct 29.6 L MCV 95 MCH 30.7 MCHC 32.5 RDW 16.4 H Plt Count 205 Seg Neutrophils % Not Reportable Lymphocytes % Not Reportable Monocytes % Not Reportable Eosinophils % Not Reportable Basophils % Not Reportable Absolute Neutrophils Not Reportable Absolute Lymphocytes Not Reportable Absolute Monocytes Not Reportable Absolute Eosinophils Not Reportable Absolute Basophils Not Reportable Carbonic Acid 1.50 H HCO3/H2CO3 Ratio 19:1 ABG pH 7.38 ABG pCO2 49.7 H ABG pO2 70.9 L ABG HCO3 28.5 H ABG O2 Saturation 93.7 L ABG Base Excess 2.6 FiO2 30% Sodium 141.1 Potassium 4.3 Chloride 109 H Carbon Dioxide 27 Anion Gap 5 BUN 35 H Creatinine 0.56 Est GFR ( Amer) > 60 Est GFR (Non-Af Amer) > 60 Glucose 189 H Calcium 7.6 L Total Bilirubin 0.3 AST 192 H ALT 408 H Alkaline Phosphatase 47 Total Protein 5.1 L Albumin 2.6 L 02/21/18 15:34 WBC RBC Hgb Hct MCV MCH MCHC RDW Plt Count Seg Neutrophils % Lymphocytes % Monocytes % Eosinophils % Basophils % Absolute Neutrophils Absolute Lymphocytes Absolute Monocytes Absolute Eosinophils Absolute Basophils Carbonic Acid 1.56 H HCO3/H2CO3 Ratio 16:1 ABG pH 7.32 L ABG pCO2 51.8 H ABG pO2 70.7 L ABG HCO3 26.1 H ABG O2 Saturation 92.7 L ABG Base Excess -0.5 FiO2 30% Sodium Potassium Chloride Carbon Dioxide Anion Gap BUN Creatinine Est GFR ( Amer) Est GFR (Non-Af Amer) Glucose Calcium Total Bilirubin AST ALT Alkaline Phosphatase Total Protein Albumin 02/17/18 02/18/18 02/18/18 05:15 10:30 10:30 Creatine Kinase 58 CK-MB (CK-2) 1.44 Troponin I 0.022 NT-Pro-B Natriuret Pep 403 Impressions: Chest/Abdomen CTA 02/12/18 00:00 IMPRESSION: 1. There is no evidence of pulmonary emboli. 2. Extensive pulmonary emphysema. 3. Cholelithiasis. Head CT 02/15/18 00:00 IMPRESSION: Very limited negative study EVIDENCE OF ACUTE STROKE: NO. Chest X-Ray 02/21/18 00:00 IMPRESSION: LIMITED STUDY. HARDWARE APPEARS TO BE IN APPROPRIATE POSITION. KUB X-Ray 02/21/18 14:51 IMPRESSION: NASOGASTRIC TUBE WITH THE TIP IN THE STOMACH. Assessment & Plan - Diagnosis (1) Acute and chronic respiratory failure Qualifiers: Respiratory failure complication: hypoxia and hypercapnia Qualified Code(s) : J96.21 - Acute and chronic respiratory failure with hypoxia; J96.22 - Acute and chronic respiratory failure with hypercapnia; J96.22 - Acute and chronic respiratory failure with hypercapnia; J96.22 - Acute and chronic respiratory failure with hypercapnia Is this a current diagnosis for this admission?: Yes Plan: The patient was extubated this morning, but failed extubation. She has been intubated again. (2) Anxiety disorder Qualifiers: Anxiety disorder type: generalized anxiety disorder Qualified Code(s): F41.1 - Generalized anxiety disorder Is this a current diagnosis for this admission?: Yes Plan: Sedation on the vent. (3) COPD exacerbation Is this a current diagnosis for this admission?: Yes Plan: Nebs and steroids. As per pulmonology. (4) DVT prophylaxis Is this a current diagnosis for this admission?: Yes (5) Esophageal stenosis Is this a current diagnosis for this admission?: No (6) Generalized anxiety disorder Is this a current diagnosis for this admission?: Yes (7) Generalized weakness Is this a current diagnosis for this admission?: Yes (8) Hyperlipidemia Qualifiers: Hyperlipidemia type: mixed hyperlipidemia Qualified Code(s): E78.2 - Mixed hyperlipidemia Is this a current diagnosis for this admission?: Yes - Time Time Spent with patient: 25-34 minutes Medications reviewed and adjusted accordingly: Yes Anticipated discharge: Home
[2018-02-21 18:57] LABS: ARTERIAL BLOOD BASE EXCESS 0.9 mmol/L; ARTERIAL BLOOD H2CO3 1.27 mmol/L (1.05-1.35); ARTERIAL BLOOD HCO3 25.8 mmol/L (20-24); ARTERIAL BLOOD O2 SATURATION 96.8 % (94-98); ARTERIAL BLOOD PCO2 42.3 mmHg (35-45); ARTERIAL BLOOD PO2 88.4 mmHg (80-100); ARTERIAL BLOOD TOTAL CO2 27.1 mmol/L (21-25)
[2018-02-21 18:58] LABS: ARTERIAL BLOOD FIO2 30%
[2018-02-21] MEDS: MIDAZOLAM HCL 50 MG/100 ML RTUINJ IV PRN (18:59)
[2018-02-21] MEDS: ATORVASTATIN CALCIUM 40 MG TABLET NG SCH (21:11)
--- NOTE | 2018-02-21 22:55 | PROGRESS NOTE E ---
Progress Note NAME: SOM MCALLISTER : 1945 AGE: 72Y DATE: 02/21/2018 ROOM: 606 SUBJECTIVE: The patient is a 74-year-old female who came in for acute respiratory failure requiring invasive mechanical ventilation. The patient performed well on sedation vacation this morning after 1-2 hours off propofol. Did a spontaneous breathing trial for about an hour and a half. The patient tolerated the spontaneous breathing trial. Heart rate was normal at 70 beats per minute, respiratory rate was also normal running about 16 and 14 with an exhaled/inhaled tidal volume of 400-450. The patient was extubated, however, after an hour the patient became tachypneic and severe hypoxemic and the heart rate became bradycardic, and in severe respiratory distress. The patient as re-intubated and resumed previous ventilator settings and sedation. The patient has continued endotracheal tube secretions with no fever of the last 24 hours and no nausea, vomiting, diarrhea. OBJECTIVE: GENERAL: Currently sedated, afebrile not in apparent respiratory distress. VITAL SIGNS: Temperature 98.8 with a T-max of 98.8. Her blood pressure is 108/54, pulse rate is 64, respiratory is 20, saturations is 97% on 30% FiO2. Currently SIMV rate of 20, FiO2 of 40%, tidal volume 400, pressure support of 10, PEEP of 5, and mid ventilation is 8, peak airway pressure is 27. EYES: No jaundice or pallor. EARS, NOSE, AND THROAT: No ear drainage noted. No nasal discharge. HEAD AND NECK: No scalp swelling, no neck tenderness. CHEST AND LUNGS: No wheezing, no rhonchi, no coarse crackles. CARDIOVASCULAR: S1, S2 distinct. Normal rate, regular rhythm. ABDOMEN: Flabby. Positive bowel sounds. Soft, nondistended, nontender. EXTREMITIES: No joint swelling and no cellulitis. LABORATORY DATA: CBC done today showed a white count of 17,000; hemoglobin is 9.6; hematocrit is 29.6; platelet count is 205; no bands noted. ABG done tonight at 6:45 p.m. showed pH of 7.4, pCO2 of 42, pO2 is 88, saturation 96%. Chemistry done today showed sodium is 151, potassium is 4.3, chloride 109, CO2 is 27, BUN 35, creatinine 0.56, glucose 189, and calcium 7.6. SGOT is 192, SGPT 408, total protein is 5.1, and albumin is 2.6. ASSESSMENT: 1. CHRONIC RESPIRATORY FAILURE REQUIRING INVASIVE MECHANICAL VENTILATION. The patient successfully passed the spontaneous breathing trial today, however, the patient failed post intubation and became very tachypneic and bradycardic with oxygen saturation. The patient was re-intubated. The patient has end-stage COPD, the patient will require a tracheostomy tube placement. I do not think the patient will require chronic ventilatory trapping. Patient will require chronic mechanical ventilation. 2. VERY SEVERE COPD. Currently not in acute bronchospasm. 3. PNEUMONIA. 4. SEVERE ANXIETY. Currently on Xanax and Paxil. PLAN/RECOMMENDATIONS: We will put a surgical consult for tracheostomy & peg tube placement, for the patient. We will continue to optimize ventilatory support. We will repeat a chest x-ray today. DICTATING PHYSICIAN: ASHLEY GONZALEZ MD,CHARISSE,MPH [id number] PHY#: [id number] ID: [id number] JOB#: [id number] ACCT: [id number] cc: > MTDD
[2018-02-22] MEDS: LEVALBUTEROL HCL NEB 1.25 MG/3 ML AMPUL NEB SCH ×4 (00:11→23:14)
[2018-02-22] MEDS: ALPRAZOLAM 0.5 MG TABLET PO SCH ×4 (00:31→18:30)
[2018-02-22] MEDS: DILTIAZEM HCL 30 MG TABLET NG SCH ×4 (00:31→18:30)
[2018-02-22] MEDS: PROPOFOL 1,000 MG/100 ML INFUS..BTL IV PRN ×4 (01:44→22:14)
[2018-02-22] MEDS: NORMAL SALINE 1000 ML 1,000 ML IV PRN ×2 (02:57→15:58)
[2018-02-22] MEDS: METHYLPREDNISOLONE INJ 125 MG/2 ML SDV IV SCH ×3 (05:07→21:47)
[2018-02-22 05:33] LABS: ARTERIAL BLOOD BASE EXCESS -0.2 mmol/L; ARTERIAL BLOOD FIO2 30%; ARTERIAL BLOOD H2CO3 1.26 mmol/L (1.05-1.35); ARTERIAL BLOOD HCO3 24.8 mmol/L (20-24); ARTERIAL BLOOD O2 SATURATION 95.2 % (94-98); ARTERIAL BLOOD PCO2 41.8 mmHg (35-45); ARTERIAL BLOOD PH 7.39 (7.35-7.45); ARTERIAL BLOOD PO2 76.5 mmHg (80-100); ARTERIAL BLOOD TOTAL CO2 26.1 mmol/L (21-25)
[2018-02-22 05:54] LABS: HEMOGLOBIN 9.8 g/dL (12.0-15.5); MEAN CORPUSCULAR HEMOGLOBIN 30.9 pg (27.0-33.4); MEAN CORPUSCULAR HGB CONC 32.6 g/dL (32.0-36.0); MEAN CORPUSCULAR VOLUME 95 fl (80-97); PLATELET COUNT 196 10^3/uL (150-450); RED BLOOD COUNT 3.16 10^6/uL (3.72-5.28); RED CELL DISTRIBUTION WIDTH 16.4 % (11.5-14.0); WHITE BLOOD COUNT 17.8 10^3/uL (4.0-10.5)
[2018-02-22 06:10] LABS: ALANINE AMINOTRANSFERASE 479 U/L (9-52); ALBUMIN 2.5 g/dL (3.5-5.0); ALKALINE PHOSPHATASE 54 U/L (38-126); ANION GAP 5 (5-19); ASPARTATE AMINO TRANSFERASE 96 U/L (14-36); BILIRUBIN,DIRECT 0.3 mg/dL (0.0-0.4); BILIRUBIN,TOTAL 0.3 mg/dL (0.2-1.3); BLOOD UREA NITROGEN 37 mg/dL (7-20); CALCIUM 7.2 mg/dL (8.4-10.2); CARBON DIOXIDE 26 mmol/L (22-30); CHLORIDE 110 mmol/L (98-107); GLUCOSE 218 mg/dL (75-110); POTASSIUM 3.9 mmol/L (3.6-5.0); SODIUM 140.8 mmol/L (137-145); TOTAL PROTEIN 4.8 g/dL (6.3-8.2); TRIGLYCERIDES 173 mg/dL (<150)
[2018-02-22 06:29] LABS: ABSOLUTE LYMPHOCYTES# (MANUAL) 0.7 10^3/uL (0.5-4.7); ABSOLUTE MONOCYTES # (MANUAL) 0.9 10^3/uL (0.1-1.4); ABSOLUTE NEUTROPHILS# (MANUAL) 16.2 10^3/uL (1.7-8.2); BASOPHILS % (MANUAL) 0 % (0-2); EOSINOPHILS % (MANUAL) 0 % (0-6); LYMPHOCYTES % (MANUAL) 4 % (13-45); MONOCYTES % (MANUAL) 5 % (3-13); SEGMENTED NEUTROPHILS % (MAN) 91 % (42-78); TOTAL CELLS COUNTED 100
[2018-02-22 06:37] LABS: ANISOCYTOSIS 1+; POIKILOCYTOSIS 1+; TOXIC GRANULATION SLIGHT
[2018-02-22 06:38] LABS: HELMET CELLS 1+; OVALOCYTES 1+; PLATELET COMMENT ADEQUATE
--- NOTE | 2018-02-22 08:14 | RADIOLOGY REPORT (SQ) ---
EXAM DESCRIPTION: CHEST SINGLE VIEW COMPLETED DATE/TIME: 02/22/2018 7:15 am REASON FOR STUDY: on ventilator COMPARISON: None. EXAM PARAMETERS: NUMBER OF VIEWS: One view. TECHNIQUE: Single frontal radiographic view of the chest acquired. RADIATION DOSE: NA LIMITATIONS: None. FINDINGS: LUNGS AND PLEURA: Hyperinflation of right lung with paucity of pulmonary markings suggest bullous disease. There is obscuration left lung base by patient's hand. Respirator device overlies right lung base. MEDIASTINUM AND HILAR STRUCTURES: No masses. Contour normal. HEART AND VASCULAR STRUCTURES: The heart is normal. The pulmonary vasculature is normal. BONES: No acute findings. HARDWARE: None in the chest. OTHER: Right IJ line overlies the SVC. Endotracheal tube above monster. Feeding tube passing toward stomach. IMPRESSION: COPD. TECHNICAL DOCUMENTATION: JOB ID: [id number] SC-[id number] 2010 [employer]- All Rights Reserved Reading location - IP/workstation name: [email or web address]
[2018-02-22] MEDS: METOPROLOL TARTRATE 25 MG TABLET NG SCH ×2 (09:56→21:48)
[2018-02-22] MEDS: PAROXETINE HCL 20 MG TABLET PO SCH (09:56)
[2018-02-22] MEDS: ASPIRIN 81 MG TABLET, CHEWABLE NG SCH (09:57)
[2018-02-22] MEDS: ENOXAPARIN SODIUM INJ 40 MG/0.4 ML DISP.SYRIN SUBCUT SCH (09:57)
[2018-02-22] MEDS: FUROSEMIDE INJ/PF 20 MG/2 ML SDV IV SCH (09:57)
[2018-02-22] MEDS: DIGOXIN 0.125 MG TABLET PO SCH (09:57)
--- NOTE | 2018-02-22 15:45 | PDOC PROGRESS REPORT ---
Subjective Progress Note for:: 02/22/18 Subjective:: The patient is sedated and intubated. No acute distress. Her eyes are open, but she does not attend to me. Reason For Visit: COPD EXACERBATION Physical Exam Vital Signs: Temp Pulse Resp BP Pulse Ox 99.3 F 61 20 99/46 L 95 02/22/18 14:00 02/22/18 14:00 02/22/18 14:00 02/22/18 14:00 02/22/18 14:00 Pulse Oximeter Continuous Start: 02/12/18 13: 38 Freq: RTQ4 Status: Complete Document 02/12/18 13:[address] [facility] (Rec: 02/12/18 13:[address] [facility] [id number]) Pulse Oximetry Assessment Oxygen Saturation (92-100) 97 Oxygen Delivery Method Bi-pap Fraction of Inspired Oxygen (FIO2) 45 Equipment Usage Initial Set Up Continuous Pulse Oximeter 24 Hour Charge Charge Now Continuous SpO2 Machine # n2 Pulse Oximeter Continuous Start: 02/12/18 14: 27 Freq: RTQ4 Status: Complete Document 02/15/18 17:24 JDR (Rec: 02/15/18 17:24 JDR [email or web address]) Pulse Oximetry Assessment Equipment Usage Equipment Discontinued Continuous SpO2 Machine # 2 Intake & Output 02/21/18 02/22/18 02/23/18 06:59 06:59 06:59 Intake Total 2096 2224 Output Total 1625 1525 630 Balance 471 259 630 Weight 71.6 kg 72.5 kg General appearance: PRESENT: no acute distress, other - Sedated and ventilated Eye exam: PRESENT: PERRLA Respiratory exam: PRESENT: other - No increased work of breathing. ABSENT: rales, rhonchi, wheezes Cardiovascular exam: PRESENT: RRR, other - No lateral PMI. No thrills.. ABSENT : gallop, rubs, systolic murmur Pulses: PRESENT: other - Diminished distal pulses. GI/Abdominal exam: PRESENT: hypoactive bowel sounds, soft. ABSENT: hernia, mass , tenderness Extremities exam: ABSENT: clubbing, tenderness, +1 edema Musculoskeletal exam: PRESENT: normal inspection. ABSENT: deformity, dislocation, tenderness Skin exam: PRESENT: dry, intact, warm Results Laboratory Results: 02/22/18 05:00 02/22/18 05:00 02/21/18 02/21/1818 15:34 18:45 05:00 WBC RBC Hgb Hct MCV MCH MCHC RDW Plt Count Seg Neutrophils % Lymphocytes % Monocytes % Eosinophils % Basophils % Absolute Neutrophils Absolute Lymphocytes Absolute Monocytes Absolute Eosinophils Absolute Basophils Carbonic Acid 1.56 H 1.27 1.26 HCO3/H2CO3 Ratio 16:1 20:1 19:1 ABG pH 7.32 L 7.40 7.39 ABG pCO2 51.8 H 42.3 41.8 ABG pO2 70.7 L 88.4 76.5 L ABG HCO3 26.1 H 25.8 H 24.8 H ABG O2 Saturation 92.7 L 96.8 95.2 ABG Base Excess -0.5 0.9 -0.2 FiO2 30% 30% 30% Sodium Potassium Chloride Carbon Dioxide Anion Gap BUN Creatinine Est GFR ( Amer) Est GFR (Non-Af Amer) Glucose Calcium Magnesium Total Bilirubin AST ALT Alkaline Phosphatase Total Protein Albumin Triglycerides 02/22/18 02/22/18 05:00 05:00 WBC 17.8 H RBC 3.16 L Hgb 9.8 L Hct 30.0 L MCV 95 MCH 30.9 MCHC 32.6 RDW 16.4 H Plt Count 196 Seg Neutrophils % Not Reportable Lymphocytes % Not Reportable Monocytes % Not Reportable Eosinophils % Not Reportable Basophils % Not Reportable Absolute Neutrophils Not Reportable Absolute Lymphocytes Not Reportable Absolute Monocytes Not Reportable Absolute Eosinophils Not Reportable Absolute Basophils Not Reportable Carbonic Acid HCO3/H2CO3 Ratio ABG pH ABG pCO2 ABG pO2 ABG HCO3 ABG O2 Saturation ABG Base Excess FiO2 Sodium 140.8 Potassium 3.9 Chloride 110 H Carbon Dioxide 26 Anion Gap 5 BUN 37 H Creatinine 0.49 L Est GFR ( Amer) > 60 Est GFR (Non-Af Amer) > 60 Glucose 218 H Calcium 7.2 L Magnesium 2.1 Total Bilirubin 0.3 AST 96 H ALT 479 H Alkaline Phosphatase 54 Total Protein 4.8 L Albumin 2.5 L Triglycerides 173 H 02/20/18 09:12 Mcallister Catheter Urine Culture - Final Yeast, Not Rocio Albicans 02/20/18 09:12 Sputum Gram Stain - Final 02/20/18 09:12 Sputum Sputum Culture - Final C.albicans/C.dubliniensis Normal Anne 02/17/18 02/18/18 02/18/18 05:15 10:30 10:30 Creatine Kinase 58 CK-MB (CK-2) 1.44 Troponin I 0.022 NT-Pro-B Natriuret Pep 403 Impressions: Chest/Abdomen CTA 02/12/18 00:00 IMPRESSION: 1. There is no evidence of pulmonary emboli. 2. Extensive pulmonary emphysema. 3. Cholel[address]iasis. Head CT 02/15/18 00:00 IMPRESSION: Very limited negative study EVIDENCE OF ACUTE STROKE: NO. KUB X-Ray 02/21/18 14:51 IMPRESSION: NASOGASTRIC TUBE WITH THE TIP IN THE STOMACH. Chest X-Ray 02/21/18 22:00 IMPRESSION: COPD. Assessment & Plan - Diagnosis (1) Acute and chronic respiratory failure Qualifiers: Respiratory failure complication: hypoxia and hypercapnia Qualified Code(s) : J96.21 - Acute and chronic respiratory failure with hypoxia; J96.22 - Acute and chronic respiratory failure with hypercapnia; J96.22 - Acute and chronic respiratory failure with hypercapnia; J96.22 - Acute and chronic respiratory failure with hypercapnia Is this a current diagnosis for this admission?: Yes Plan: The patient was extubated yesterday, but had respiratory distress later in the day and required re-itubation. The patient will require a trach. (2) Anxiety disorder Qualifiers: Anxiety disorder type: generalized anxiety disorder Qualified Code(s): F41.1 - Generalized anxiety disorder Is this a current diagnosis for this admission?: Yes Plan: Sedation on the vent. (3) COPD exacerbation Is this a current diagnosis for this admission?: Yes Plan: Nebs and steroids. As per pulmonology. (4) DVT prophylaxis Is this a current diagnosis for this admission?: Yes Plan: Enoxaparin (5) Esophageal stenosis Is this a current diagnosis for this admission?: No Plan: Tube feeds by [employer] at this time. (6) Generalized weakness Is this a current diagnosis for this admission?: Yes Plan: Will need rehab. (7) Hyperlipidemia Qualifiers: Hyperlipidemia type: mixed hyperlipidemia Qualified Code(s): E78.2 - Mixed hyperlipidemia Is this a current diagnosis for this admission?: Yes Plan: Statin. - Time Time Spent with patient: 25-34 minutes Medications reviewed and adjusted accordingly: Yes Anticipated discharge: Acute Rehab
--- NOTE | 2018-02-22 20:20 | PDOC PROGRESS REPORT ---
Subjective Progress Note for:: 02/22/18 Subjective:: Patient about the same and has made very little progress. There is no significant change in general condition. Patient remains intubated, sedated, patient however looks comfortable and in acute distress. Patient's heart rhythm however has stabilized and no further narrow complex tachycardia noted. Medications reviewed. Reason For Visit: COPD EXACERBATION Physical Exam Vital Signs: Temp Pulse Resp BP Pulse Ox 99.1 F 72 17 119/50 L 97 02/22/18 19:38 02/22/18 18:00 02/22/18 18:09 02/22/18 18:09 02/22/18 20:01 Pulse Oximeter Continuous Start: 02/12/18 13: 38 Freq: RTQ4 Status: Complete Document 02/12/18 13:00 [facility] (Rec: 02/12/18 13:40 [facility] [id number]) Pulse Oximetry Assessment Oxygen Saturation (92-100) 97 Oxygen Delivery Method Bi-pap Fraction of Inspired Oxygen (FIO2) 45 Equipment Usage Initial Set Up Continuous Pulse Oximeter 24 Hour Charge Charge Now Continuous SpO2 Machine # n2 Pulse Oximeter Continuous Start: 02/12/18 14: 27 Freq: RTQ4 Status: Complete Document 02/15/18 17:24 JDR (Rec: 02/15/18 17:24 JDR [email or web address]) Pulse Oximetry Assessment Equipment Usage Equipment Discontinued Continuous SpO2 Machine # 2 Intake & Output 02/21/18 02/22/18 02/23/18 06:59 06:59 06:59 Intake Total 2096 2224 1754 Output Total 1625 1525 790 Balance 471 699 964 Weight 71.6 kg 72.5 kg Exam: GENERAL: well-nourished and in no acute distress. Patient is intubated and sedated. Orientation cannot be checked HEAD: Atraumatic, normocephalic. EYES: Pupils equal round and reactive to light, extraocular movements could not be checked, sclera anicteric, conjunctiva are normal. ENT: TMs normal, nares patent, oropharynx clear without exudates. Moist mucous membranes. No oral ulcerations or bleeding gums noted NECK: supple without lymphadenopathy or JVD. Trachea is central. No cervical or axillary lymphadenopathy noted. Carotids are 2+ LUNGS: Breath sounds mostly clear to auscultation patient is noted to have bibasal crackles at the extreme bases CHEST: Palpation of the chest wall shows no significant chest wall tenderness or abnormalities. HEART: Willard [employer], No PSH, 2/6 DAMASO aortic area, 1/6 maguire systolic murmur mitral area , no rubs or gallops. ABDOMEN: Soft, no significant tenderness appreciated, normoactive bowel sounds. No guarding, no rebound. No rigidity noted . No masses appreciated. EXTREMITIES: Pedal pulses are 1-2+, no calf tenderness noted, 1+ pedal edema noted. No clubbing or cyanosis. NEUROLOGICAL: The patient cannot participate in the neurological exam but no facial asymmetry noted. Extremities slightly hypotonic PSYCH: This cannot be evaluated. Patient cannot participate. SKIN: No significant ecchymosis, rash, or signs of pruritus noted. MUSCULOSKELETAL EXAM: No significant joint swelling noted. Patient cannot participate in musculoskeletal exam Results Laboratory Results: 02/22/18 05:00 02/22/18 05:00 02/22/18 02/22/18 02/22/18 05:00 05:00 05:00 WBC 17.8 H RBC 3.16 L Hgb 9.8 L Hct 30.0 L MCV 95 MCH 30.9 MCHC 32.6 RDW 16.4 H Plt Count 196 Seg Neutrophils % Not Reportable Lymphocytes % Not Reportable Monocytes % Not Reportable Eosinophils % Not Reportable Basophils % Not Reportable Absolute Neutrophils Not Reportable Absolute Lymphocytes Not Reportable Absolute Monocytes Not Reportable Absolute Eosinophils Not Reportable Absolute Basophils Not Reportable Carbonic Acid 1.26 HCO3/H2CO3 Ratio 19:1 ABG pH 7.39 ABG pCO2 41.8 ABG pO2 76.5 L ABG HCO3 24.8 H ABG O2 Saturation 95.2 ABG Base Excess -0.2 FiO2 30% Sodium 140.8 Potassium 3.9 Chloride 110 H Carbon Dioxide 26 Anion Gap 5 BUN 37 H Creatinine 0.49 L Est GFR ( Amer) > 60 Est GFR (Non-Af Amer) > 60 Glucose 218 H Calcium 7.2 L Magnesium 2.1 Total Bilirubin 0.3 AST 96 H ALT 479 H Alkaline Phosphatase 54 Total Protein 4.8 L Albumin 2.5 L Triglycerides 173 H 02/20/18 09:12 Mcallister Catheter Urine Culture - Final Yeast, Not Rocio Albicans 02/20/18 09:12 Sputum Gram Stain - Final 02/20/18 09:12 Sputum Sputum Culture - Final C.albicans/C.dubliniensis Normal Anne 02/17/18 02/18/18 02/18/18 05:15 10:30 10:30 Creatine Kinase 58 CK-MB (CK-2) 1.44 Troponin I 0.022 NT-Pro-B Natriuret Pep 403 Impressions: Chest/Abdomen CTA 02/12/18 00:00 IMPRESSION: 1. There is no evidence of pulmonary emboli. 2. Extensive pulmonary emphysema. 3. Cholelithiasis. Head CT 02/15/18 00:00 IMPRESSION: Very limited negative study EVIDENCE OF ACUTE STROKE: NO. KUB X-Ray 02/21/18 14:51 IMPRESSION: NASOGASTRIC TUBE WITH THE TIP IN THE STOMACH. Chest X-Ray 02/21/18 22:00 IMPRESSION: COPD. Assessment & Plan - Diagnosis (1) Supraventricular tachycardia Is this a current diagnosis for this admission?: Yes (2) Acute and chronic respiratory failure Qualifiers: Respiratory failure complication: hypoxia and hypercapnia Qualified Code(s) : J96.21 - Acute and chronic respiratory failure with hypoxia; J96.22 - Acute and chronic respiratory failure with hypercapnia; J96.22 - Acute and chronic respiratory failure with hypercapnia; J96.22 - Acute and chronic respiratory failure with hypercapnia Is this a current diagnosis for this admission?: Yes (3) COPD exacerbation Is this a current diagnosis for this admission?: Yes (4) Hypertension Qualifiers: Hypertension type: essential hypertension Qualified Code(s): I10 - Essential (primary) hypertension Is this a current diagnosis for this admission?: Yes - Notes Notes: Continue current management plans. Patient's chart was reviewed. For some reason patient did not have a echocardiogram performed yet. This was therefore ordered. In the meantime continue with current management. I am told that patient may be considered for tracheostomy and PEG tube placement. So far nurses tell me that patient did not have any recurrence of SVT. - Time Time with patient: 15-25 minutes - More than 50% of the time spent coordinating care, discussing management plans with involved caregivers. Management plans discussed with involved personnels. Medical decision making was of moderate to high complexity, patient's has multiple comorbidities. Medications reviewed and adjusted accordingly: Yes
--- NOTE | 2018-02-22 20:30 | PROGRESS NOTE E ---
Progress Note NAME: SOM MCALLISTER : 1945 AGE: 72Y DATE: 02/22/2018 ROOM: 606 SUBJECTIVE: The patient is a 72-year-old female who came in with acute on chronic respiratory failure requiring invasive mechanical ventilation. The patient got extubated yesterday after passing the spontaneous breathing trial and sedation vacation. However, the patient got reintubated because the patient became tachycardic and tachypneic later and bradycardic eventually. The patient after reintubation the patient stabilized and was doing well. Had spontaneous recurrence of secretions. No fever overnight. Tolerated the NG tube feeding. OBJECTIVE: GENERAL: The patient is sedated, afebrile, not in acute apparent respiratory distress. VITAL SIGNS: Temperature of 99.3 with a T-max of 99.5, pulse rate is 65, blood pressure is 116/58, saturation is 95% and FiO2 of 30%, SIMV rate of 20, tidal volume 405, pressure support 10, PEEP of 5, and mid ventilation is 8, peak airway pressure is 26. EYES: No jaundice or pallor. EARS, NOSE, AND THROAT: No ear drainage noted. No nasal discharge. HEAD AND NECK: No scalp swelling, no neck swelling. Endotracheal tube is in place. CHEST AND LUNGS: No wheezing, no rhonchi, no coarse crackles. CARDIOVASCULAR: S1, S2 distinct. Normal rate and regular rhythm. ABDOMEN: Flabby, positive bowel sounds, soft, nondistended, nontender. EXTREMITIES: No joint swelling, no cellulitis. LABORATORY DATA: CBC done today showed a WBC of 17.8, hemoglobin is 10.8, hematocrit is 30, platelet count is 196. ABG done today at 5 a.m. showed pH of 7.39, pCO2 is 41.8, pO2 is 76, bicarb is 34.8, oxygen saturation 95%. Chemistry done today showed sodium is 140, potassium is 3.9, chloride 110, CO2 is 26, BUN is 37, creatinine is 0.49, glucose is 118, and calcium is 7.8, SGOT is 96, SGPT is 429, alkaline phosphatase is 61. ASSESSMENT: 1. ACUTE ON CHRONIC RESPIRATORY FAILURE REQUIRING INVASIVE MECHANICAL VENTILATION. Failed post extubation and patient got intubated. The patient needs tracheostomy tube, the patient requires chronic ventilator therapy. 2. END-STAGE COPD/EMPHYSEMA. Currently not in acute bronchospasm. 3. SEVERE ANXIETY. PLAN: 1. We will put a surg consultation for a tracheostomy and PEG tube placement. 2. We will continue the nebulizer treatment. 3. Continue the ceftriaxone and Xanax. 4. Continue the Solu-Medrol at 40 mg q.8. DICTATING PHYSICIAN: ASHLEY GONZALEZ MD,CHARISSE,MPH [id number] [id number] PHY#: [id number] ID: [id number] JOB#: [id number] ACCT: [id number] cc: > MTDD
[2018-02-22] MEDS: ATORVASTATIN CALCIUM 40 MG TABLET NG SCH (21:47)
[2018-02-23] MEDS: DILTIAZEM HCL 30 MG TABLET NG SCH ×4 (00:30→18:40)
[2018-02-23] MEDS: ALPRAZOLAM 0.5 MG TABLET PO SCH ×3 (00:33→11:44)
[2018-02-23] MEDS: NORMAL SALINE 1000 ML 1,000 ML IV PRN (04:37)
[2018-02-23] MEDS: PROPOFOL 1,000 MG/100 ML INFUS..BTL IV PRN ×2 (04:37→11:44)
[2018-02-23] MEDS: METHYLPREDNISOLONE INJ 125 MG/2 ML SDV IV SCH ×3 (05:57→22:20)
[2018-02-23 06:57] LABS: BLOOD UREA NITROGEN 41 mg/dL (7-20); CALCIUM 7.1 mg/dL (8.4-10.2); GLUCOSE 234 mg/dL (75-110); POTASSIUM 4.6 mmol/L (3.6-5.0)
[2018-02-23 07:03] LABS: CARBON DIOXIDE 28 mmol/L (22-30); CHLORIDE 109 mmol/L (98-107); SODIUM 139.7 mmol/L (137-145)
[2018-02-23 07:05] LABS: HEMATOCRIT 28.1 % (36.0-47.0); HEMOGLOBIN 9.2 g/dL (12.0-15.5); MEAN CORPUSCULAR HGB CONC 32.7 g/dL (32.0-36.0); MEAN CORPUSCULAR VOLUME 95 fl (80-97); PLATELET COUNT 182 10^3/uL (150-450); RED BLOOD COUNT 2.97 10^6/uL (3.72-5.28); RED CELL DISTRIBUTION WIDTH 16.5 % (11.5-14.0); WHITE BLOOD COUNT 15.5 10^3/uL (4.0-10.5)
[2018-02-23 07:30] LABS: ABSOLUTE LYMPHOCYTES# (MANUAL) 0.6 10^3/uL (0.5-4.7); ABSOLUTE MONOCYTES # (MANUAL) 0.6 10^3/uL (0.1-1.4); ABSOLUTE NEUTROPHILS# (MANUAL) 14.3 10^3/uL (1.7-8.2); BASOPHILS % (MANUAL) 0 % (0-2); EOSINOPHILS % (MANUAL) 0 % (0-6); LYMPHOCYTES % (MANUAL) 4 % (13-45); MONOCYTES % (MANUAL) 4 % (3-13); SEGMENTED NEUTROPHILS % (MAN) 92 % (42-78); TOTAL CELLS COUNTED 100
[2018-02-23 07:31] LABS: ANISOCYTOSIS 1+; OVALOCYTES SLIGHT; PLATELET COMMENT ADEQUATE; POIKILOCYTOSIS SLIGHT
[2018-02-23 07:36] LABS: ANION GAP 3 (5-19)
[2018-02-23] MEDS: LEVALBUTEROL HCL NEB 1.25 MG/3 ML AMPUL NEB SCH ×2 (08:05→16:24)
[2018-02-23] MEDS: FUROSEMIDE INJ/PF 20 MG/2 ML SDV IV SCH (10:54)
[2018-02-23] MEDS: DIGOXIN 0.125 MG TABLET PO SCH (10:55)
[2018-02-23] MEDS: PAROXETINE HCL 20 MG TABLET PO SCH (10:55)
[2018-02-23] MEDS: ENOXAPARIN SODIUM INJ 40 MG/0.4 ML DISP.SYRIN SUBCUT SCH (10:55)
[2018-02-23] MEDS: ASPIRIN 81 MG TABLET, CHEWABLE NG SCH (10:55)
[2018-02-23] MEDS: METOPROLOL TARTRATE 25 MG TABLET NG SCH ×2 (10:55→22:19)
--- NOTE | 2018-02-23 14:47 | PDOC CONSULTATION ---
Consultation Consult Date: 02/23/18 Attending physician:: MOHAMUD MARSH Consult reason:: PEG and trach placement History of Present Illness Admission Date/PCP: 02/12/18 08:29 MOHAMUD MARSH History of Present Illness: SOM MCALLISTER is a 72 year old female Patient intubated on the ventilator for approximately 11 days, was extubated, required reintubation. Now in the intensive care unit, sedated, receiving pulmonary support; consultation made to surgical service for percutaneous endoscopic gastrostomy tube placement and tracheostomy tube placement. Note: Patient cannot locate due to presence of endotracheal tube; furthermore patient is sedated on Ativan; patient is accompanied by her significant other, Mr. Jatinder Miller; Mr. Miller is well known to me, having undergone low anterior resection, multiple exploratory laparotomies in the past. According to Candido, who is functioning as the patient's healthcare power of assistant prosecuting attorney, the patient, Mrs. Som Mcallister, now with to be sustained on life support for any period of time. Furthermore he states that she would not be interested in a percutaneous endoscopic gastrostomy tube or a tracheostomy tube. We do not have formal statements defining level of aggressiveness of care. Patient is currently a full code. Mr. Miller states the patient has been living for the most part on her couch for the last 6 months. Past Medical History Cardiac Medical History: Denies: Coronary Artery Disease, Myocardial Infarction, Hypertension Pulmonary Medical History: Reports: Asthma, Chronic Obstructive Pulmonary Disease (COPD) Denies: Bronchitis, Pneumonia, Tuberculosis Neurological Medical History: Denies: Seizures Musculoskeltal Medical History: Denies: Arthritis Psychiatric Medical History: Denies: Depression Hematology: Denies: Anemia Past Surgical History Past Surgical History: Reports: Hysterectomy Denies: Pacemaker Social History Smoking Status: Current Some Day Smoker Cigarettes Packs Per Day: 0.5 Cigars Per Day: 0 Pipes Per Day: 0 Number of Years Smokin Last Time Smoked: 02/11/2018 Frequency of Alcohol Use: None Hx Recreational Drug Use: No Hx Prescription Drug Abuse: No - Advance Directive Resuscitation Status: Full Code Family History Family History: COPD Parental Family History Reviewed: Yes Children Family History Reviewed: Yes Sibling(s) Family History Reviewed.: Yes Medication/Allergy Home Medications: Albuterol Sulfate [Ventolin HFA MDI 18 GM] 2 puff IH Q4H 02/12/18 Alprazolam [Xanax 0.5 mg Tablet] 0.5 mg PO TID 02/12/18 Aspirin [Aspirin 81 mg Chewable Tablet] 81 mg PO DAILY 02/12/18 Atorvastatin Calcium [Lipitor 40 mg Tablet] 40 mg PO QHS 02/12/18 Famotidine [Pepcid 20 mg Tablet] 20 mg PO BID 02/12/18 Fluticasone/Salmeterol [Advair 500-50 Diskus 28 Dose] 1 inh IH Q12H 02/12/18 Metoprolol Tartrate [Lopressor 25 mg Tablet] 25 mg PO Q12 02/12/18 Tiotropium [place] [Spiriva Respimat] 2 puff IH DAILY 02/12/18 Allergies/Adverse Reactions: Sulfa (Sulfonamide Antibiotics) Allergy (Severe, Verified 02/12/18 13:48) unsure amoxicillin Allergy (Verified 02/12/18 13:48) codeine [Codeine] Allergy (Verified 02/12/18 13:48) Review of Systems ROS unobtainable: Due to endotracheal tube, Due to mental status Physical Exam Vital Signs: Temp Pulse Resp BP Pulse Ox 97.9 F 69 16 132/52 H 95 02/23/18 11:48 02/23/18 11:48 02/23/18 11:48 02/23/18 11:48 02/23/18 11:48 Pulse Oximeter Continuous Start: 02/12/18 13: 38 Freq: RTQ4 Status: Complete Document 02/12/18 13:00 [facility] (Rec: 02/12/18 13:40 [facility] [id number]) Pulse Oximetry Assessment Oxygen Saturation (92-100) 97 Oxygen Delivery Method Bi-pap Fraction of Inspired Oxygen (FIO2) 45 Equipment Usage Initial Set Up Continuous Pulse Oximeter 24 Hour Charge Charge Now Continuous SpO2 Machine # n2 Pulse Oximeter Continuous Start: 02/12/18 14: 27 Freq: RTQ4 Status: Complete Document 02/15/18 17:24 J (Rec: 02/15/18 17:24 [facility] [id number]) Pulse Oximetry Assessment Equipment Usage Equipment Discontinued Continuous SpO2 Machine # 2 Intake & Output 02/22/18 02/23/18 02/24/18 06:59 06:59 06:59 Intake Total 2224 2800 997 Output Total 1525 1100 515 Balance 699 1700 482 Weight 72.5 kg 75.6 kg General appearance: PRESENT: other - Patient sedated, on ventilator, to prevent drip Eye exam: PRESENT: other - per orbital edema Respiratory exam: PRESENT: other - Rhonchi bilaterally GI/Abdominal exam: PRESENT: other - Soft nontender no peritoneal signs no distention Results Laboratory Results: 02/23/18 06:25 02/23/18 06:25 02/23/18 02/23/18 06:25 06:25 WBC 15.5 H RBC 2.97 L Hgb 9.2 L Hct 28.1 L MCV 95 MCH 31.0 MCHC 32.7 RDW 16.5 H Plt Count 182 Seg Neutrophils % Not Reportable Lymphocytes % Not Reportable Monocytes % Not Reportable Eosinophils % Not Reportable Basophils % Not Reportable Absolute Neutrophils Not Reportable Absolute Lymphocytes Not Reportable Absolute Monocytes Not Reportable Absolute Eosinophils Not Reportable Absolute Basophils Not Reportable Sodium 139.7 Potassium 4.6 Chloride 109 H Carbon Dioxide 28 Anion Gap 3 L BUN 41 H Creatinine 0.49 L Est GFR ( Amer) > 60 Est GFR (Non-Af Amer) > 60 Glucose 234 H Calcium 7.1 L 02/20/18 09:12 Mcallister Catheter Urine Culture - Final Yeast, Not Rocio Albicans 02/20/18 09:12 Sputum Gram Stain - Final 02/20/18 09:12 Sputum Sputum Culture - Final C.albicans/C.dubliniensis Normal Anne 02/17/18 02/18/18 02/18/18 05:15 10:30 10:30 Creatine Kinase 58 CK-MB (CK-2) 1.44 Troponin I 0.022 NT-Pro-B Natriuret Pep 403 Impressions: Chest/Abdomen CTA 02/12/18 00:00 IMPRESSION: 1. There is no evidence of pulmonary emboli. 2. Extensive pulmonary emphysema. 3. Cholelithiasis. Head CT 02/15/18 00:00 IMPRESSION: Very limited negative study EVIDENCE OF ACUTE STROKE: NO. KUB X-Ray 02/21/18 14:51 IMPRESSION: NASOGASTRIC TUBE WITH THE TIP IN THE STOMACH. Chest X-Ray 02/21/18 22:00 IMPRESSION: COPD. Assessment & Plan - Diagnosis (1) Ventilator dependent Is this a current diagnosis for this admission?: Yes Plan: Impression: 72-year-old white female, active smoker, acute exacerbation of COPD , on ventilator in the intensive care unit; hemodynamically stable. Discussion: 1. We were approached by the primary care service to place a percutaneous endoscopic gastrostomy, tracheostomy tube. I have had extensive conversation with the patient's healthcare power of assistant prosecuting attorney by his report, Mr. Jatinder Miller, I have known for close to 12 years; furthermore I have known of Mrs. Som Mcallister who is accompanied Mr. Tobias to many of his appointments over the years. According to Mr. Miller, he is stated that the patient, Ms. Mcallister , would not wish to be sustained on life support for any period of time, certainly not an indefinite period as may accompany a long stay in a long-term facility. He would not like for the patient to have a PEG tube or a tracheostomy as this would be inconsistent with the patient's wishes. 2. Therefore we will not pursue PEG and trach placement at this time. I discussed the above with Dr. Marsh who will discuss advanced directives, DNR status and levels of aggressiveness of care further with the patient support system. (2) Smoker Is this a current diagnosis for this admission?: Yes (3) Acute and chronic respiratory failure Qualifiers: Respiratory failure complication: hypoxia and hypercapnia Qualified Code(s) : J96.21 - Acute and chronic respiratory failure with hypoxia; J96.22 - Acute and chronic respiratory failure with hypercapnia; J96.22 - Acute and chronic respiratory failure with hypercapnia; J96.22 - Acute and chronic respiratory failure with hypercapnia Is this a current diagnosis for this admission?: Yes (4) COPD exacerbation Is this a current diagnosis for this admission?: Yes - Time Time Spent: 50 to 70 Minutes Smoking Cessation Education: over 10 minutes Medications reviewed and adjusted accordingly: Yes
--- NOTE | 2018-02-23 17:38 | PDOC PROGRESS REPORT ---
Subjective Progress Note for:: 02/23/18 Subjective:: She was exturbated and reintubated after a couple of hours 2 days ago(on friday) due to recurrent respiratory distress.The rubber tile floor layer had requested for PEG tube placement, but when DR Urbano came to pt's bedside to discuss this, his next of kin and POA informed the Dr Urbano that is not pt's wish to be on sustained life support and in effect will not want to have PEG and tracheostomy placement. She is still on [facility]. ventilation and is sedated with Propofol. I D/W pt with pt's POA, Mr Jatinder Henry and he confirmed that pt does not want PEG/tracheostomy. He agred for pt to be on DNR/DNI and comfort measures. I D/W this development with Dr Benavidez and he will be the second signature for the DNR/DNI. We will then downgrade her to floor status subsequently. Reason For Visit: COPD EXACERBATION Physical Exam Vital Signs: Temp Pulse Resp BP Pulse Ox 97.9 F 60 16 114/44 L 95 02/23/18 11:48 02/23/18 14:00 02/23/18 14:32 02/23/18 14:32 02/23/18 14:32 Pulse Oximeter Continuous Start: 02/12/18 13: 38 Freq: RTQ4 Status: Complete Document 02/12/18 13:00 [facility] (Rec: 02/12/18 13:40 [facility] [id number]) Pulse Oximetry Assessment Oxygen Saturation (92-100) 97 Oxygen Delivery Method Bi-pap Fraction of Inspired Oxygen (FIO2) 45 Equipment Usage Initial Set Up Continuous Pulse Oximeter 24 Hour Charge Charge Now Continuous SpO2 Machine # n2 Pulse Oximeter Continuous Start: 02/12/18 14: 27 Freq: RTQ4 Status: Complete Document 02/15/18 17:24 JDR (Rec: 02/15/18 17:24 JDR [id number]) Pulse Oximetry Assessment Equipment Usage Equipment Discontinued Continuous SpO2 Machine # 2 Intake & Output 02/22/18 02/23/18 02/24/18 06:59 06:59 06:59 Intake Total 2224 2800 997 Output Total 1525 1100 1120 Balance 699 1700 -123 Weight 72.5 kg 75.6 kg General appearance: PRESENT: no acute distress, well-developed, well-nourished Head exam: PRESENT: atraumatic, normocephalic Eye exam: PRESENT: EOMI, PERRLA Ear exam: PRESENT: normal external ear exam Mouth exam: PRESENT: neck supple, tongue midline Respiratory exam: PRESENT: decreased breath sounds, symmetrical Cardiovascular exam: PRESENT: +S1, +S2 Pulses: PRESENT: +1 pedal pulses bilateral GI/Abdominal exam: PRESENT: normal bowel sounds, soft Rectal exam: PRESENT: deferred Additional comments: On mech. ventilation Results Laboratory Results: 02/23/18 06:25 02/23/18 06:25 02/23/18 02/23/18 06:25 06:25 WBC 15.5 H RBC 2.97 L Hgb 9.2 L Hct 28.1 L MCV 95 MCH 31.0 MCHC 32.7 RDW 16.5 H Plt Count 182 Seg Neutrophils % Not Reportable Lymphocytes % Not Reportable Monocytes % Not Reportable Eosinophils % Not Reportable Basophils % Not Reportable Absolute Neutrophils Not Reportable Absolute Lymphocytes Not Reportable Absolute Monocytes Not Reportable Absolute Eosinophils Not Reportable Absolute Basophils Not Reportable Sodium 139.7 Potassium 4.6 Chloride 109 H Carbon Dioxide 28 Anion Gap 3 L BUN 41 H Creatinine 0.49 L Est GFR ( Amer) > 60 Est GFR (Non-Af Amer) > 60 Glucose 234 H Calcium 7.1 L 02/20/18 09:12 Mcallister Catheter Urine Culture - Final Yeast, Not Rocio Albicans 02/20/18 09:12 Sputum Gram Stain - Final 02/20/18 09:12 Sputum Sputum Culture - Final C.albicans/C.dubliniensis Normal Anne 02/17/18 02/18/18 02/18/18 05:15 10:30 10:30 Creatine Kinase 58 CK-MB (CK-2) 1.44 Troponin I 0.022 NT-Pro-B Natriuret Pep 403 Impressions: Chest/Abdomen CTA 02/12/18 00:00 IMPRESSION: 1. There is no evidence of pulmonary emboli. 2. Extensive pulmonary emphysema. 3. Cholelithiasis. Head CT 02/15/18 00:00 IMPRESSION: Very limited negative study EVIDENCE OF ACUTE STROKE: NO. KUB X-Ray 02/21/18 14:51 IMPRESSION: NASOGASTRIC TUBE WITH THE TIP IN THE STOMACH. Chest X-Ray 02/21/18 22:00 IMPRESSION: COPD. Assessment & Plan - Diagnosis (1) Acute and chronic respiratory failure Qualifiers: Respiratory failure complication: hypoxia and hypercapnia Qualified Code(s) : J96.21 - Acute and chronic respiratory failure with hypoxia; J96.22 - Acute and chronic respiratory failure with hypercapnia; J96.22 - Acute and chronic respiratory failure with hypercapnia; J96.22 - Acute and chronic respiratory failure with hypercapnia Is this a current diagnosis for this admission?: Yes Plan: Ct with mech. ventilation. Ct with IV fluids normal saline at 75 cc/hr; Ct with Lasix 20 mg daily IV; Morphine 1 mg q2h IV prn; strict input/output chart. Daily weight; Monitor chemistries daily and CBC daily; f/u rubber tile floor layer, Dr Benavidez for ventilator mgt. (2) COPD exacerbation Is this a current diagnosis for this admission?: Yes Plan: Ct with Duonebs q4h prn; Xopenex nebs 1.25 mg q8h; Solumedrol 40 mg q8h IV; Rocephin 1 g daily. (3) SVT (supraventricular tachycardia) Is this a current diagnosis for this admission?: Yes Plan: Pt was given Digoxin 0.5 mg stat IV and responded to Adenosine 6 mg IVx1; Ct with Digoxin 0.[address] with Cardizem 30 mg q6h P.O via NGT. F/u Dr Weiss. (4) Hypertension Qualifiers: Hypertension type: essential hypertension Qualified Code(s): I10 - Essential (primary) hypertension Is this a current diagnosis for this admission?: Yes Plan: Ct with Metoprolol 12.5 mg q12h IV: Ct with Cardizem 30 mg q6h via NG tube . (5) Hyperlipidemia Qualifiers: Hyperlipidemia type: mixed hyperlipidemia Qualified Code(s): E78.2 - Mixed hyperlipidemia Is this a current diagnosis for this admission?: Yes Plan: Ct with Atorvastatin 40 mg qhs via NG tube. (6) Reflux esophagitis Is this a current diagnosis for this admission?: Yes Plan: Ct with Protonix 40 mg qd IV. (7) Anxiety disorder Qualifiers: Anxiety disorder type: generalized anxiety disorder Qualified Code(s): F41.1 - Generalized anxiety disorder Is this a current diagnosis for this admission?: Yes Plan: Ct with Xanax 0.5 mg q6h PO via NGT; Paroxetine 20 mg qd pO via NGT. . (8) DVT prophylaxis Is this a current diagnosis for this admission?: Yes Plan: Ct with Lovenox 40 mg qd subcut; SCD.
[2018-02-23] MEDS: LORAZEPAM INJ 2 MG/1 ML VIAL IV PRN ×2 (18:39→23:34)
[2018-02-23] MEDS: MORPHINE SULFATE 10 MG/ML INJ IV PRN ×2 (18:39→22:20)
[2018-02-23] MEDS ORDERED: MORPHINE SULFATE 10 MG/ML INJ ONE (18:51)
[2018-02-23] MEDS: ATORVASTATIN CALCIUM 40 MG TABLET NG SCH (22:20)
[2018-02-23 22:27] VITALS: BP 121/23
--- NOTE | 2018-02-23 22:39 | PDOC PROGRESS REPORT ---
Subjective Progress Note for:: 02/23/18 Subjective:: Patient about the same and has made very little progress. There is no significant change in general condition. Patient remains intubated, sedated, patient however looks comfortable and in acute distress. Patient's heart rhythm however has stabilized and no further narrow complex tachycardia noted. Patient being considered for tracheostomy and PEG tube placement. Medications reviewed. Reason For Visit: COPD EXACERBATION Physical Exam Vital Signs: Temp Pulse Resp BP Pulse Ox 98.0 F 66 19 121/23 L 64 L 02/23/18 16:00 02/23/18 16:25 02/23/18 22:00 02/23/18 21:12 02/23/18 22:00 Pulse Oximeter Continuous Start: 02/12/18 13: 38 Freq: RTQ4 Status: Complete Document 02/12/18 13:00 [facility] (Rec: 02/12/18 13:40 [facility] [id number]) Pulse Oximetry Assessment Oxygen Saturation (92-100) 97 Oxygen Delivery Method Bi-pap Fraction of Inspired Oxygen (FIO2) 45 Equipment Usage Initial Set Up Continuous Pulse Oximeter 24 Hour Charge Charge Now Continuous SpO2 Machine # n2 Pulse Oximeter Continuous Start: 02/12/18 14: 27 Freq: RTQ4 Status: Complete Document 02/15/18 17:24 JDR (Rec: 02/15/18 17:24 JDR [email or web address]) Pulse Oximetry Assessment Equipment Usage Equipment Discontinued Continuous SpO2 Machine # 2 Intake & Output 02/22/18 02/23/18 02/24/18 06:59 06:59 06:59 Intake Total 2224 2800 997 Output Total 1525 1100 1375 Balance 699 1700 -378 Weight 72.5 kg 75.6 kg Exam: GENERAL: well-nourished and in no acute distress. Alert and oriented x3 HEAD: Atraumatic, normocephalic. EYES: Pupils equal round and reactive to light, extraocular movements intact, sclera anicteric, conjunctiva are normal. ENT: TMs normal, nares patent, oropharynx clear without exudates. Moist mucous membranes. No oral ulcerations or bleeding gums noted NECK: supple without lymphadenopathy. Trachea is central. No cervical or axillary lymphadenopathy noted. Carotids are 2+, JVD WNL LUNGS: Respiration seems nonlabored, no significant accessory muscle action noted. Breath sounds clear to auscultation bilaterally and equal noted. No wheezes rales or rhonchi noted. No significant dullness noted on percussion. CHEST: Palpation of the chest wall shows no significant chest wall tenderness. HEART: [place] [employer], No PSH, 1/6 DAMASO aortic area, 1/6 mag[place] systolic murmur mitral area, no rubs, no gallops. ABDOMEN: Soft, no significant tenderness appreciated, normoactive bowel sounds. No guarding, no rebound. No rigidity noted . No masses appreciated. EXTREMITIES: Pedal pulses are 1-2+, no calf tenderness noted. No clubbing or cyanosis. negative pedal edema noted NEUROLOGICAL: Focused neurological exam showed no significant neurologic deficit. Normal speech, no focal weakness appreciated. PSYCH: Normal mood, normal affect. Judgment and insight within normal limits. SKIN: No significant ecchymosis, skin is noted to be warm. MUSCULOSKELETAL EXAM: No significant acute joint swelling noted. Results Laboratory Results: 02/23/18 06:25 02/23/18 06:25 02/23/18 02/23/18 06:25 06:25 WBC 15.5 H RBC 2.97 L Hgb 9.2 L Hct 28.1 L MCV 95 MCH 31.0 MCHC 32.7 RDW 16.5 H Plt Count 182 Seg Neutrophils % Not Reportable Lymphocytes % Not Reportable Monocytes % Not Reportable Eosinophils % Not Reportable Basophils % Not Reportable Absolute Neutrophils Not Reportable Absolute Lymphocytes Not Reportable Absolute Monocytes Not Reportable Absolute Eosinophils Not Reportable Absolute Basophils Not Reportable Sodium 139.7 Potassium 4.6 Chloride 109 H Carbon Dioxide 28 Anion Gap 3 L BUN 41 H Creatinine 0.49 L Est GFR ( Amer) > 60 Est GFR (Non-Af Amer) > 60 Glucose 234 H Calcium 7.1 L 02/17/18 02/18/18 02/18/18 05:15 10:30 10:30 Creatine Kinase 58 CK-MB (CK-2) 1.44 Troponin I 0.022 NT-Pro-B Natriuret Pep 403 EKG Comments: Shows sinus rhythm without any sustained tachycardia or bradycardia. Impressions: Chest/Abdomen CTA 02/12/18 00:00 IMPRESSION: 1. There is no evidence of pulmonary emboli. 2. Extensive pulmonary emphysema. 3. Cholelithiasis. Head CT 02/15/18 00:00 IMPRESSION: Very limited negative study EVIDENCE OF ACUTE STROKE: NO. KUB X-Ray 02/21/18 14:51 IMPRESSION: NASOGASTRIC TUBE WITH THE TIP IN THE STOMACH. Chest X-Ray 02/21/18 22:00 IMPRESSION: COPD. Assessment & Plan - Diagnosis (1) Supraventricular tachycardia Is this a current diagnosis for this admission?: Yes (2) Acute and chronic respiratory failure Qualifiers: Respiratory failure complication: hypoxia and hypercapnia Qualified Code(s) : J96.21 - Acute and chronic respiratory failure with hypoxia; J96.22 - Acute and chronic respiratory failure with hypercapnia; J96.22 - Acute and chronic respiratory failure with hypercapnia; J96.22 - Acute and chronic respiratory failure with hypercapnia Is this a current diagnosis for this admission?: Yes (3) COPD exacerbation Is this a current diagnosis for this admission?: Yes (4) Hypertension Qualifiers: Hypertension type: essential hypertension Qualified Code(s): I10 - Essential (primary) hypertension Is this a current diagnosis for this admission?: Yes - Notes Notes: Patient is being considered for tracheostomy and also PEG tube placement. Patient remains stable from cardiac standpoint but has severe COPD. 2D echo results were reviewed. It showed LVEF to be relatively well-preserved. RV is noted to be enlarged. RVSP could not be evaluated. These findings were reviewed. - Time Time with patient: 15-25 minutes - More than 50% of the time spent coordinating care, discussing management plans with involved caregivers. Management plans discussed with involved personnels. Medical decision making was of moderate to high complexity, patient's has multiple comorbidities. Medications reviewed and adjusted accordingly: Yes
--- NOTE | 2018-02-23 23:09 | EKG REPORT ---
SEVERITY:- ABNORMAL ECG - SINUS RHYTHM VENTRICULAR PREMATURE COMPLEX LOW VOLTAGE WITH RIGHT AXIS DEVIATION BORDERLINE R WAVE PROGRESSION, ANTERIOR LEADS BORDERLINE T ABNORMALITIES, ANT-LAT LEADS : Confirmed by: Carlie Weiss 23-Feb-2018 23:09:01
--- NOTE | 2018-02-24 09:16 | Death Summary ---
Summary Date : 02/24/18 Autopsy: No Resuscitation Status: Do Not Intubate - Final Diagnosis (1) Acute and chronic respiratory failure Is this a current diagnosis for this admission?: Yes (2) COPD exacerbation Is this a current diagnosis for this admission?: Yes (3) SVT (supraventricular tachycardia) Is this a current diagnosis for this admission?: Yes (4) Hypertension Is this a current diagnosis for this admission?: Yes (5) Hyperlipidemia Is this a current diagnosis for this admission?: Yes (6) Reflux esophagitis Is this a current diagnosis for this admission?: Yes (7) Anxiety disorder Is this a current diagnosis for this admission?: Yes (8) DVT prophylaxis Is this a current diagnosis for this admission?: Yes Hospital Course:: 72 old woman who has admitted initially to [facility] by hospitalist for acute on chronic respiratory failure and copd exacerbation. She was later intubated and put on mechanical ventilation and transferred to ICU. Her ventilator management was done by mining helper, Dr Benavidez. She was extubated on 02/21/2018, but was reintubated after a couple of hours on account of recurrent respiratory distress and inability to maintain her airways. Decision mas made for tracheostomy and PEG tube placement and general surgeon, Dr Urbano was consulted. He discussed with pt's POA, Mr Jatinder Henry, who said that pt had indicated that she does not want PEG/tracheostomy and does not want her life to be prolonged in that manner. I later had a long discussion with him at pt's bedside at 17.00 hours on 02/23/2018 and he confirmed that pt does not want to be on PEG/tracheostomy and he subsequently agreed to DNR/DNI and comfort measures. I also discussed this development with Dr Benavidez, who agreed to be the second attending for the DNR/DNI status. She was then made DNR/DNI and put on comfort measures. She at 00.45 am on 02/24/2018. and her POA was at the bedside. May her soul rest in peace.
--- NOTE | 2018-02-24 10:46 | PROGRESS NOTE E ---
Progress Note NAME: SOM MCALLISTER : 1945 AGE: 72Y DATE: 02/23/2018 ROOM: 606 SUBJECTIVE: The patient is a 72-year-old female who came in with acute renal failure requiring invasive mechanical ventilation due to severe end-stage COPD. The patient has no fever over the last 24 hours. The patient appeared to be stable. Vital signs stable. The patient is scheduled for a tracheostomy this week. Family discussion was done with patient's [id number] and common-law , Devendra Barger, who stated that patient does not want to have a tracheostomy and wants to be on DNR STATUS in case she cannot make decisions for herself. So tracheostomy and PEG tube placement were all canceled, and the patient's family wanted the patient to be in comfort measure status, and DNR/DNI STATUS. She has had scanty endotracheal tube secretions. No vomiting. No diarrhea. OBJECTIVE: VITAL SIGNS: The patient appeared sedated, afebrile, not in apparent respiratory distress. VITAL SIGNS: With temperature 98 degrees Fahrenheit with a temperature maximum of 99.2 and a heart rate of 66. Blood pressure is 130/50. Respiratory rate is 16. O2 saturation is 96% on 30% FIO2. EYES: No jaundice or pallor. EARS, NOSE, AND THROAT: No ear drainage noted. No nasal discharge. HEAD AND NECK: No scalp swelling. No neck tenderness. CHEST AND LUNGS: No wheezing. No rhonchi. No coarse crackles. CARDIOVASCULAR: S1, S2 distinct. No murmur. Regular rhythm. ABDOMEN: Flabby, positive bowel sounds, soft, nontender, nondistended. EXTREMITIES: No joint swelling or cellulitis. LABORATORY DATA: CBC done today showed white count of 15.5, hemoglobin is 9.2, hematocrit is 28.1, platelet count is 182,000. Chemistry done today showed sodium 139, potassium 4.6, chloride 109, CO2 is 28, BUN is 41, creatinine 0.41, glucose is 224, and calcium is 7.1. ASSESSMENT: 1. ACUTE ON CHRONIC RESPIRATORY FAILURE REQUIRING INVASIVE MECHANICAL VENTILATION. The patient needs a tracheostomy tube placement. The patient cannot ventilate herself. She has an end-stage COPD status emphysema, currently not in acute bronchospasm, no apparent pneumonia. Discussed this and conveyed patient's condition to family about patient requiring tracheostomy. Family, Devendra estate attorney in fact, refused tracheostomy tube and PEG tube placement, wanted the patient on comfort measures. 2. SEVERE END-STAGE COPD. Currently not in acute bronchospasm. 3. SEVERE ANXIETY. PLAN AND RECOMMENDATIONS: We will titrate the sedation down and then plan to extubate the patient, put the patient on BiPAP, put her on comfort measures. Agreed with the plan for comfort measures, and this is in compliance with the patient's wishes according to the patient's [id number] on file, Mr. Ramsay DICTATING PHYSICIAN: ASHLEY GONZALEZ MD,CHARISSE,MPH [id number] PHY#: [id number] ID: [id number] JOB#: [id number] ACCT: [id number] cc:ASHLEY GONZALEZ M.D. > MTDJanice
--- NOTE | 2018-02-24 13:37 | XCELERA REPORT ---
[address] [address] Transthoracic Echocardiogram Report Name: SOM MCALLISTER Age: 72 yrs Gender: Female : 1945 Patient Status: Inpatient Patient Location: ICU^606^A Study Date: 02/23/2018 10:59 AM Procedure: A complete two-dimensional transthoracic echocardiogram was performed (2D, M-mode, spectral and color flow Doppler). The study was technically difficult with many images being suboptimal in quality. Reason For Study: Respiratory distress, SVT Ordering Physician: CARLIE MTZ Performed By: Alexandra Hernandez Interpretation Summary The study was technically difficult with many images being suboptimal in quality. The left ventricular ejection fraction is normal. There is borderline concentric left ventricular hypertrophy. The left ventricle is grossly normal size. LV diastolic function could not be adequately assessed. Regional wall motion abnormalities cannot be excluded due to limited visualization. The right ventricle appears to be hypertrophied The right ventricle is mild to moderately dilated. The right ventricular systolic function is normal. The right atrium is mildly dilated. The left atrial size is normal. There is no mitral valve stenosis. There is a trace amount of mitral regurgitation There is no aortic valve stenosis No aortic regurgitation is present. There is no tricuspid stenosis. There is a trace or physiologic amount of tricuspid regurgitation Tricuspid regurgitation jet envelope not well defined to measure RV systolic pressure accurately. The aortic root is not well visualized. The inferior vena cava appeared normal and decreased < 50% with respiration (RAP 10-15 mmHg) Minimal pericardial effusion. MMode/2D Measurements & Calculations RVDd: 3.9 cm LVIDd: 4.2 cm FS: 32.1 % Ao root diam: 3.3 cm IVSd: 0.67 cm LVIDs: 2.9 cm EDV(Teich): 79.4 ml Ao root area: 8.3 cm2 LVPWd: 0.80 cm ESV(Teich): 31.3 ml EF(Teich): 60.6 % Doppler Measurements & Calculations MV E max pierre: MV dec slope: Ao V2 max: LV V1 max P.1 cm/sec 150.6 cm/sec 3.1 mmHg MV A max pierre: 369.1 cm/sec2 Ao max PG: LV V1 max: 82.1 cm/sec MV dec time: 0.19 sec9.1 mmHg 87.8 cm/sec MV E/A: 0.87 PA V2 max: TR max pierre: 99.7 cm/sec 199.4 cm/sec PA max P.0 mmHg TR max P.9 mmHg Left Ventricle The left ventricle is grossly normal size. There is borderline concentric left ventricular hypertrophy. The left ventricular ejection fraction is normal. LV diastolic function could not be adequately assessed. Regional wall motion abnormalities cannot be excluded due to limited visualization. Right Ventricle The right ventricle is mild to moderately dilated. The right ventricle appears to be hypertrophied. The right ventricular systolic function is normal. Atria The right atrium is mildly dilated. The left atrial size is normal. Interarterial septum not well visualized and not well dopplered. Cannot comment on ASD/PFO presence. Mitral Valve The mitral valve is grossly normal. There is no mitral valve stenosis. There is a trace amount of mitral regurgitation. Aortic Valve The aortic valve is not well visualized secondary to technical limitations. There is no aortic valve stenosis. No aortic regurgitation is present. Tricuspid Valve The tricuspid valve is not well visualized secondary to technical limitations. There is no tricuspid stenosis. There is a trace or physiologic amount of tricuspid regurgitation. Tricuspid regurgitation jet envelope not well defined to measure RV systolic pressure accurately. Pulmonic Valve The pulmonic valve is not well visualized. Great Vessels The aortic root is not well visualized. The inferior vena cava appeared normal and decreased < 50% with respiration (RAP 10-15 mmHg). Effusions Minimal pericardial effusion. : CARLIE MTZ > Carlie Mtz
== END 2018-02-24 01:30 | disposition expired | DRG 189 ==
LOC: ER 04:34 → EH 08:29 → 4N 10:44 → 3S 02-14 18:17 → ICU 02-15 16:00
PROVIDERS: ADMIT Internal Medicine; ATTEND Internal Medicine
PROC: 5A09557 Assistance with Respiratory Ventilation, Greater than 96 Consecutive Hours, Continuous Positive Airway Pressure (ICD-10-PCS; 2018-02-12)
PROC: 0BH17EZ Insertion of Endotracheal Airway into Trachea, Via Natural or Artificial Opening (ICD-10-PCS; principal; 2018-02-15)
PROC: 02HV33Z Insertion of Infusion Device into Superior Vena Cava, Percutaneous Approach (ICD-10-PCS; 2018-02-15)
DX: J96.21 Acute and chronic respiratory failure with hypoxia (principal); J44.1 Chronic obstructive pulmonary disease with (acute) exacerbation; I47.1 Supraventricular tachycardia; N30.00 Acute cystitis without hematuria; J96.22 Acute and chronic respiratory failure with hypercapnia; Z51.5 Encounter for palliative care; Z66 Do not resuscitate; Z99.81 Dependence on supplemental oxygen; I10 Essential (primary) hypertension; K22.2 Esophageal obstruction; K21.0 Gastro-esophageal reflux disease with esophagitis; R53.1 Weakness; F41.1 Generalized anxiety disorder; E78.2 Mixed hyperlipidemia; F17.210 Nicotine dependence, cigarettes, uncomplicated; Z90.710 Acquired absence of both cervix and uterus; Z79.82 Long term (current) use of aspirin; Z79.899 Other long term (current) drug therapy; Z88.2 Allergy status to sulfonamides; Z88.1 Allergy status to other antibiotic agents; Z78.1 Physical restraint status
CPT/HCPCS: 31500; 36415; 36600; 70450; 71045; 71275; 74018; 80048; 80053; 81001; 82550; 82553; 82803; 82962; 83605; 83735; 83880; 84478; 84484; 85025; 85027; 85379; 85610; 85730; 87040; 87070; 87086; 87088; 87186; 87205; 93005; 93010; 93306; 94002; 94003; 94640; 94660; 94762; 96365; 96375; 99291; C1751; J0153; J0330; J0456; J0696; J1160; J1650; J1940; J2060; J2250; J2270; J2704; J2920; J2930; J3490; J7030; J7040; J7060; J7120; J7512; J7620; Q0144; S0028; S0164